=== PATIENT | female | born 1945 | race African-American/Black ===

== ENCOUNTER → 2016-10-23 | Outpatient (CLI) | payer BC ==
[~2016-10-23] MED LIST: B-COTAB18 PO; MCRK/10 PO; MECL1TAB42 PO; METO25TA56 PO; MULT-506 PO; OMEG10007 PO; VALS160T60 PO
--- NOTE | 2016-10-23 13:53 | DIAGNOSTIC IMAGING REPORT ---
LEFT HAND MIN 3 VIEWS ROUTINE CLINICAL HISTORY: HAND PAIN pain COMPARISON: None. DISCUSSION: Considerable degenerative change first carpometacarpal joint. Mild degenerative change of the interphalangeal joints throughout. No evidence for fracture or dislocation. Bony mineralization is within normal limits. IMPRESSION: Considerable degenerative change first carpometacarpal joint. Mild degenerative change interphalangeal joints. No acute process. Electronically signed by: Ru Lee M.D. 10/23/2016 1:51 PM Dictated Date/Time: 10/23/2016 1:51 PM
--- NOTE | 2016-10-23 14:08 | DIAGNOSTIC IMAGING REPORT ---
LEFT FOREARM 2 VIEWS ROUTINE CLINICAL HISTORY: Left forearm pain COMPARISON: None. DISCUSSION: No fractures or dislocations are visualized. Osteoarthritic changes are visualized the level the first carpal metacarpal joint. IMPRESSION: No fractures or destructive lesions are visualized. Electronically signed by: Shelton Bryan M.D. 10/23/2016 2:07 PM Dictated Date/Time: 10/23/2016 2:06 PM
--- NOTE | 2016-10-23 14:16 | DIAGNOSTIC IMAGING REPORT ---
RIGHT HAND MIN 3 VIEWS ROUTINE CLINICAL HISTORY: Right hand pain. COMPARISON: None FINDINGS: Alignment of the right hand is anatomic. There is no acute fracture or suspicious lesion. There is marked joint space narrowing with osteophytosis within multiple interphalangeal joints of the right hand, most pronounced within the second and third digit DIP joints. There is moderate arthritis of the right first carpometacarpal joint. No erosions are identified. IMPRESSION: 1. No acute fracture or dislocation of the right hand. 2. 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 Electronically signed by: Jerson Gusman M.D. 10/23/2016 2:15 PM Dictated Date/Time: 10/23/2016 2:14 PM
--- NOTE | 2016-10-23 14:18 | DIAGNOSTIC IMAGING REPORT ---
RIGHT FOREARM 2 VIEWS ROUTINE CLINICAL HISTORY: Right forearm pain. COMPARISON: None FINDINGS: No acute fracture or osseous lesion is identified within the right radius or ulna. There is no right elbow joint effusion. Alignment of the right elbow is anatomic. The right wrist and hand will be reported separately. IMPRESSION: No osseous abnormality within the right radius or ulna. Electronically signed by: Jerson Gusman M.D. 10/23/2016 2:16 PM Dictated Date/Time: 10/23/2016 2:15 PM
[2016-10-23 14:45] LABS: COMPLETE YES; EOS % 1.6 %; HEMATOCRIT 36.3 % (37-47); LYMPH % 37.1 %; LYMPH ABS # 1.42 K/uL (1.2-3.4); MEAN CORPUSCULAR HEMOGLOBIN 29.6 pg (25-34); MEAN CORPUSCULAR HGB CONC 32.5 g/dl (32-36); MEAN PLATELET VOLUME 11.3 fL (7.4-10.4); MONO % 6.5 %; NEUT % 54.8 %; PLATELET COUNT 236 K/uL (130-400); RED BLOOD COUNT 3.99 M/uL (4.2-5.4); WHITE BLOOD COUNT 3.83 K/uL (4.8-10.8)
[2016-10-23 14:49] LABS: ALT/SGPT 19 U/L (12-78); AMYLASE 84 U/L (25-115); BLOOD UREA NITROGEN 13 mg/dl (7-18); BUN/CREATININE RATIO 11.4 (10-20); C-REACTIVE PROTEIN 0.49 mg/dl (0-0.29); CALCIUM 9.6 mg/dl (8.5-10.1); CARBON DIOXIDE 28 mmol/L (21-32); CHLORIDE 106 mmol/L (98-107); GLUCOSE 88 mg/dl (70-99); POTASSIUM 3.6 mmol/L (3.5-5.1); SODIUM 142 mmol/L (136-145)
[2016-10-23 14:59] LABS: ALKALINE PHOSPHATASE 80 U/L (45-117); AST/SGOT 14 U/L (15-37); THYROID STIMULATING HORMONE 0.695 uIu/ml (0.300-4.500)
--- NOTE | 2016-10-31 12:17 | CODING QUERY MEDICAL NECESSITY ---
SUPPORTING DIAGNOSIS NEEDED A supporting diagnosis is required for the test/procedure performed on this patient in order for us to be reimbursed by the patient's insurance. Please provide a supporting diagnosis for the following test/procedure listed below next to the test name along with your signature. *If there is no additional diagnosis for this patient that would support the following test/procedure please document that below next to the test/procedure. Test(s)/Procedure(s) that require a supporting diagnosis: * VITAMIN B-12 LEVEL DIAGNOSIS: * DOS: 10/23/16 Provider Signature: Date: Thank you Radha Cortez Health Information Management Once completed, please kindly fax back to [phone] For questions please call [phone]
== END | disposition home or self-care (01) ==
LOC: C.LAB1850 12:57
PROVIDERS: ATTEND Internal Medicine
DX: Z11.59 Encounter for screening for other viral diseases (principal); D72.819 Decreased white blood cell count, unspecified; R10.13 Epigastric pain; K82.8 Other specified diseases of gallbladder; M54.6 Pain in thoracic spine; M79.642 Pain in left hand; M19.041 Primary osteoarthritis, right hand

== ENCOUNTER → 2016-12-11 | Outpatient (CLI) | payer BC ==
--- NOTE | 2016-12-11 16:18 | MAMMOGRAPHY REPORT ---
BILATERAL DIGITAL SCREENING MAMMOGRAM WITH CAD: 12/11/2016 CLINICAL HISTORY: Routine screening. Patient has no complaints. TECHNIQUE: Bilateral CC and MLO views were obtained. Current study was also evaluated with a Comput er Aided Detection (CAD) system. COMPARISON: Comparison is made to exams dated: 12/01/2015 mammogram, 11/10/2014 mammogram, 09/30/2013 ul trasound, 09/30/2013 mammogram, 01/07/2013 mammogram, and 12/25/2011 mammogram - [facility] enter. BREAST COMPOSITION: The tissue of both breasts is heterogeneously dense, which may obscure small ma sses. FINDINGS: There are scattered benign coarse and rim calcifications in the breasts. Stable asymmetri es in each lateral breast, and the superior left breast on the MLO view. No new suspicious mass, ar chitectural distortion or cluster of microcalcifications is seen. IMPRESSION: ACR BI-RADS CATEGORY 1: NEGATIVE There is no mammographic evidence of malignancy. A 1 year screening mammogram is recommended. The p atient will receive written notification of the results. Approximately 10% of breast cancers are not detected with mammography. A negative mammographic repor t should not delay biopsy if a clinically suggestive mass is present. Najma Moreno M.D. ay/:12/11/2016 16:02:56 Director Of Testing: Fabiola Swartz, [facility] letter sent: Normal 1/2 BI-RADS Code: ACR BI-RADS Category 1: Negative
== END | disposition home or self-care (01) ==
LOC: C.MAMM 09:52
PROVIDERS: ATTEND Internal Medicine
DX: Z12.31 Encounter for screening mammogram for malignant neoplasm of breast (principal)

== ENCOUNTER → 2017-02-15 | Outpatient (CLI) | payer BC ==
[2017-02-15 12:16] LABS: BASO % 0.2 %; BASO ABS # 0.01 K/uL (0-0.2); COMPLETE YES; EOS % 1.5 %; HEMATOCRIT 34.2 % (37-47); LYMPH % 31.4 %; LYMPH ABS # 1.43 K/uL (1.2-3.4); MEAN CORPUSCULAR HEMOGLOBIN 30.5 pg (25-34); MEAN CORPUSCULAR HGB CONC 33.9 g/dl (32-36); MEAN PLATELET VOLUME 10.1 fL (7.4-10.4); MONO % 6.8 %; NEUT % 60.1 %; PLATELET COUNT 232 K/uL (130-400); WHITE BLOOD COUNT 4.56 K/uL (4.8-10.8)
[2017-02-15 12:54] LABS: AST/SGOT 13 U/L (15-37); BLOOD UREA NITROGEN 13 mg/dl (7-18); BUN/CREATININE RATIO 16.2 (10-20); CALCIUM 9.7 mg/dl (8.5-10.1); CARBON DIOXIDE 29 mmol/L (21-32); CHLORIDE 110 mmol/L (98-107); CREATININE 0.81 mg/dl (0.60-1.20); GLUCOSE 83 mg/dl (70-99); POTASSIUM 3.6 mmol/L (3.5-5.1); SODIUM 144 mmol/L (136-145)
[2017-02-15 13:07] LABS: ALKALINE PHOSPHATASE 91 U/L (45-117); ALT/SGPT 21 U/L (12-78); CHOLESTEROL 154 mg/dl (0-200); CHOLESTEROL/HDL RATIO 3.3; HDL CHOLESTEROL 46 mg/dl; LDL CHOLESTEROL CALCULATED 97 mg/dl; TRIGLYCERIDES 53 mg/dl (0-150); VERY LOW DENSITY LIPOPROT CALC 11 mg/dl
[2017-02-15 15:09] LABS: LYME DISEASE AB IGG NEG (NEG)
[2017-02-15 15:13] LABS: LYME DISEASE AB IGM NEG (NEG)
== END | disposition home or self-care (01) ==
LOC: C.LAB1850 10:50
PROVIDERS: ATTEND Physician Assistant
DX: R10.13 Epigastric pain (principal); I10 Essential (primary) hypertension; R51 Headache

== ENCOUNTER → 2017-02-20 | Outpatient (CLI) | payer BC ==
[~2017-02-20] MED LIST changes: +GADAVIST IV PRN
--- NOTE | 2017-02-20 09:22 | DIAGNOSTIC IMAGING REPORT ---
BRAIN COMBO HISTORY: 71 years-old Female R51 Headache. Progressive headaches and vision changes, dizziness, COMPARISON: Brain MRI 10/24/2015 TECHNIQUE: Multiplanar multisequence MRI of the brain was obtained both with and without the use of 7.5 mL Gadavist. FINDINGS: Large [id number] localizer images demonstrate no gross abnormality of the head or neck. There is no restricted diffusion to suggest acute ischemia. The midline structures including the corpus callosum, brainstem, optic chiasm, pituitary gland and infundibulum and pineal gland appear unremarkable on the sagittal T1 sequence. There is no cerebellar tonsillar herniation. Mild uncovertebral spurring seen within the imaged upper cervical spine. Likely degenerative pannus is seen posterior to the odontoid process measuring up to 6 mm in AP dimension with significant central canal stenosis. There is no acute intracranial hemorrhage, midline shift, hydrocephalus, intracranial mass or abnormal extra axial collections. There is mild cerebral and cerebellar atrophy which appears unchanged. Patchy areas of T2 prolongation are again seen within the periventricular and subcortical white matter of the structures bilaterally which appears unchanged from comparison. There is no abnormal intra-axial or extra-axial enhancement. Flow voids at the level the skull base are patent. Orbits appear symmetric. Mastoid air cells and middle ear cavities are clear. There is only minimal ethmoid and left sphenoid sinus disease. Calvarium and soft tissues are unremarkable. IMPRESSION: 1. No acute intracranial abnormality. No acute ischemia or abnormal enhancement. 2. Mild atrophy with chronic microvascular ischemic changes, stable findings from comparison study dated 10/24/2015. 3. Mild sphenoid and ethmoid sinus disease. The above report was generated using voice recognition software. It may contain grammatical, syntax or spelling errors. Electronically signed by: Ronny Reich M.D. 02/20/2017 9:20 AM Dictated Date/Time: 02/20/2017 9:06 AM
== END | disposition home or self-care (01) ==
LOC: C.MRIBC 08:19
PROVIDERS: ATTEND Physician Assistant
DX: R51 Headache (principal)

== ENCOUNTER → 2017-08-09 | Outpatient (CLI) | payer BC ==
[~2017-08-09] MED LIST changes: -GADAVIST IV PRN
[2017-08-09 15:43] LABS: BASO % 0.2 %; BASO ABS # 0.01 K/uL (0-0.2); EOS % 2.5 %; EOS ABS # 0.11 K/uL (0-0.5); HEMATOCRIT 31.1 % (37-47); HEMOGLOBIN 9.7 g/dL (12.0-16.0); IG# 0.01 K/uL (0.00-0.02); LYMPH ABS # 1.52 K/uL (1.2-3.4); MEAN CELL VOLUME 85.7 fL (80-100); MEAN CORPUSCULAR HEMOGLOBIN 26.7 pg (25-34); MEAN CORPUSCULAR HGB CONC 31.2 g/dl (32-36); MEAN PLATELET VOLUME 9.6 fL (7.4-10.4); MONO % 8.9 %; NEUT % 54.2 %; NEUT ABS # 2.42 K/uL (1.4-6.5); PLATELET COUNT 333 K/uL (130-400); RED CELL DISTRIBUTION WIDTH CV 16.3 % (11.5-14.5); RED CELL DISTRIBUTION WIDTH SD 51.3 fL (36.4-46.3); WHITE BLOOD COUNT 4.47 K/uL (4.8-10.8)
[2017-08-09 16:05] LABS: ALT/SGPT 22 U/L (12-78); AST/SGOT 14 U/L (15-37); BLOOD UREA NITROGEN 10 mg/dl (7-18); CALCIUM 9.8 mg/dl (8.5-10.1); CARBON DIOXIDE 28 mmol/L (21-32); CREATININE 0.84 mg/dl (0.60-1.20); GLUCOSE 84 mg/dl (70-99); POTASSIUM 3.8 mmol/L (3.5-5.1); SODIUM 138 mmol/L (136-145)
[2017-08-09 16:15] LABS: CHOLESTEROL 160 mg/dl (0-200); LDL CHOLESTEROL CALCULATED 89 mg/dl
== END | disposition home or self-care (01) ==
LOC: C.LAB1850 13:16
PROVIDERS: ATTEND Internal Medicine
DX: D72.819 Decreased white blood cell count, unspecified (principal); I10 Essential (primary) hypertension; R11.0 Nausea; R10.13 Epigastric pain

== ENCOUNTER → 2017-08-13 | Outpatient (CLI) | payer BC ==
[2017-08-13 10:44] LABS: BASO % 0.2 %; BASO ABS # 0.01 K/uL (0-0.2); EOS % 2.4 %; EOS ABS # 0.12 K/uL (0-0.5); HEMOGLOBIN 9.7 g/dL (12.0-16.0); IG# 0.01 K/uL (0.00-0.02); LYMPH % 28.1 %; LYMPH ABS # 1.43 K/uL (1.2-3.4); MEAN CELL VOLUME 85.4 fL (80-100); MEAN CORPUSCULAR HEMOGLOBIN 26.7 pg (25-34); MEAN CORPUSCULAR HGB CONC 31.3 g/dl (32-36); MEAN PLATELET VOLUME 9.5 fL (7.4-10.4); MONO % 6.5 %; MONO ABS # 0.33 K/uL (0.11-0.59); NEUT % 62.6 %; NEUT ABS # 3.19 K/uL (1.4-6.5); PLATELET COUNT 322 K/uL (130-400); RED CELL DISTRIBUTION WIDTH CV 15.9 % (11.5-14.5); RED CELL DISTRIBUTION WIDTH SD 49.9 fL (36.4-46.3); WHITE BLOOD COUNT 5.09 K/uL (4.8-10.8)
== END | disposition home or self-care (01) ==
LOC: C.LAB1850 10:21
PROVIDERS: ATTEND Internal Medicine
DX: D64.9 Anemia, unspecified (principal); E87.6 Hypokalemia; E53.8 Deficiency of other specified B group vitamins

== ENCOUNTER → 2017-10-08 | Outpatient (CLI) | payer BC ==
[2017-10-08 13:14] LABS: EOS % 1.4 %; EOS ABS # 0.06 K/uL (0-0.5); HEMATOCRIT 31.4 % (37-47); HEMOGLOBIN 9.7 g/dL (12.0-16.0); IG# 0.01 K/uL (0.00-0.02); LYMPH % 26.5 %; LYMPH ABS # 1.16 K/uL (1.2-3.4); MEAN CELL VOLUME 85.8 fL (80-100); MEAN CORPUSCULAR HEMOGLOBIN 26.5 pg (25-34); MEAN CORPUSCULAR HGB CONC 30.9 g/dl (32-36); MEAN PLATELET VOLUME 9.7 fL (7.4-10.4); MONO % 8.7 %; MONO ABS # 0.38 K/uL (0.11-0.59); NEUT % 63.2 %; NEUT ABS # 2.77 K/uL (1.4-6.5); PLATELET COUNT 298 K/uL (130-400); RED CELL DISTRIBUTION WIDTH CV 15.2 % (11.5-14.5); WHITE BLOOD COUNT 4.38 K/uL (4.8-10.8)
[2017-10-08 13:39] LABS: ALBUMIN 3.2 gm/dl (3.4-5.0); ALT/SGPT 17 U/L (12-78); BLOOD UREA NITROGEN 13 mg/dl (7-18); CALCIUM 9.5 mg/dl (8.5-10.1); CARBON DIOXIDE 27 mmol/L (21-32); CREATININE 1.07 mg/dl (0.60-1.20); GLUCOSE 72 mg/dl (70-99); LIPASE 110 U/L (73-393); POTASSIUM 3.6 mmol/L (3.5-5.1); SODIUM 137 mmol/L (136-145)
[2017-10-08 13:44] LABS: ALKALINE PHOSPHATASE 88 U/L (45-117); AST/SGOT 10 U/L (15-37); TOTAL PROTEIN 7.8 gm/dl (6.4-8.2)
== END | disposition home or self-care (01) ==
LOC: C.LAB1850 11:41
PROVIDERS: ATTEND Internal Medicine
DX: D64.9 Anemia, unspecified (principal); R10.13 Epigastric pain

== ENCOUNTER → 2017-10-18 | Outpatient (CLI) | payer BC ==
[~2017-10-18] MED LIST changes: +IRON PO; +OMEP20CA9 PO
--- NOTE | 2017-10-18 15:20 | DIAGNOSTIC IMAGING REPORT ---
ABD/PELVIS ORAL CONT ONLY CT DOSE: 382.45 mGy.cm HISTORY: Weight loss. Pain. R10.13 Abdominal pain, epigastricweight loss nausea and anemia a TECHNIQUE: Multiaxial CT images of the abdomen and pelvis were performed following the use of oral contrast. A dose lowering technique was utilized adhering to the principles of ALARA. COMPARISON STUDY: 02/15/2015 FINDINGS: Lung bases are clear. Liver spleen and pancreas are unremarkable overall morphology. Kidneys negative for calcification or hydronephrosis. Bowel pattern is nonobstructive. Scattered colonic diverticuli with no evidence for diverticulitis. Bladder is midline. No evidence for bowel obstructive change or pneumatosis. Degenerative change of the lumbar spine is stable compared to the prior exam. IMPRESSION: 1. Scattered colonic diverticuli with no evidence for diverticulitis. 2. Stable degenerative change lumbar spine. 3. The abdomen and pelvis exam is otherwise negative. The above report was generated using voice recognition software. It may contain grammatical, syntax or spelling errors. Electronically signed by: Ru Lee M.D. 10/18/2017 3:18 PM Dictated Date/Time: 10/18/2017 3:13 PM
== END | disposition home or self-care (01) ==
LOC: C.CTS 13:07
PROVIDERS: ATTEND Internal Medicine
DX: R10.13 Epigastric pain (principal); R63.4 Abnormal weight loss; R11.0 Nausea; D64.9 Anemia, unspecified

== ENCOUNTER → 2017-10-24 | Day surgery (SDC) | payer BC ==
[2017-10-22 11:41] VITALS: BMI 25.0
[~2017-10-24] VITALS: Ht 170.2 cm; Wt 75.0 kg
[~2017-10-24] MED LIST changes: -B-COTAB18 PO; +LIDOCAINE HCL 2% 2 ML VIAL (20MG/ML) ONE; -MECL1TAB42 PO; -MULT-506 PO; -OMEG10007 PO; +PROPOFOL IV EMULSION 10 MG/ML 20 ML VIAL IV ONE; +SODIUM CHLORIDE 0.9% 500ML 500 ML IV ONE
[2017-10-24 09:42] VITALS: Ht 170.2 cm; Wt 75.0 kg
--- NOTE | 2017-10-24 10:10 | Endo History and Physical ---
History & Physical Date of Service: Oct 24, 2017. Chief Complaint: IRON DEFICIENCY ANEMIA Referring Physician: DR SWIFT History of Present Illness CESILIA, abdominal pain and weight loss Past Medical History Reflux, Hypertension Past Surgical History Hx Cardiac Surgery: No Hx Internal Defibrillator: No Hx Pacemaker: No Hx Abdominal Surgery: Yes (PARTIAL HYSTERECTOMY) Hx of Implantable Prosthesis: No Hx Post-Op Nausea and Vomiting: No Hx Cancer Surgery: No Hx Thoracic Surgery: No Hx Orthopedic: No Hx Urinary Tract Surgery: No Family History None Social History Smoking Status: Never Smoker Hx Substance Use: No Hx Alcohol Use: No Allergies Coded Allergies: Erythromycin (Verified Allergy, Unknown, DIZZY, 10/22/17) Propoxyphene (Verified Allergy, Unknown, DIZZINESS, 10/22/17) Sulfa Drugs (Verified Allergy, Unknown, LIPS SWELLING, 04/16/16) Current Medications Reported Home Medications Medications Dose Route/Sig Max Daily Dose Days Date Category Prilosec (Omeprazole) 20 Mg Cap 20 Mg PO QAM 10/22/17 Reported [Iron] 1 Tab PO BID 10/22/17 Reported K-Tabs (Potassium Chloride) 10 Meq Tabcr 3 Tab PO BID 02/08/16 Reported Diovan Hct 160MG/25MG (HCTZ/Valsartan) 1 Tab Tab 1 Tab PO QAM 02/08/16 Reported Lopressor (Metoprolol Tartrate) 25 Mg Tab 25 Mg PO BID 02/08/16 Reported Vital Signs Weight (Kilograms): 75.00 Height (Feet): 5 Height (Inches): 7 Date Time Temp Pulse Resp B/P (MAP) Pulse Ox O2 Delivery O2 Flow Rate FiO2 10/24/17 09:44 36.5 80 18 140/73 (95) 96 Room Air Physical Exam General Appearance: no apparent distress Respiratory/Chest: Auscultation: breath sounds normal Cardiovascular: Heart Auscultation: RRR Abdomen: Inspection & Palpation: soft Liver: non-tender Assessment and Plan Stable for EGD
--- NOTE | 2017-10-24 10:31 | Discharge Instructions ---
Endoscopy Patient Instructions Date / Procedure(s) Performed Oct 24, 2017. EGD Allergy Information Coded Allergies: Erythromycin (Verified Allergy, Unknown, DIZZY, 10/22/17) Propoxyphene (Verified Allergy, Unknown, DIZZINESS, 10/22/17) Sulfa Drugs (Verified Allergy, Unknown, LIPS SWELLING, 04/16/16) Discharge Date / Findings Oct 24, 2017. Normal esophagus. Gastritis Normal Duodenum Provider Instructions Activity Restrictions - No exercising or heavy lifting for 24 hours. - Do not drink alcohol the day of the procedure. - Do not drive a car or operate machinery until the day after the procedure. - Do not make any important decisions or sign important papers in 24 hours after the procedure. Following Day: - Return to full activity which may include returning to work/school. Diet Start your diet with liquids and light foods (jello, soup, juice, toast). Then eat your usual diet if not nauseated. Treatment For Common After Affects For mild abdominal pain, bloating, or excessive gas: - Rest - Eat lightly - Lie on right side Follow-Up Information Follow-up with DR SWIFT as scheduled Anesthesia Information What You Should Know You have had a procedure that required some medicine to reduce anxiety and discomfort. This treatment is called moderate sedation. After receiving the treatment, you may be sleepy, but you will be able to breathe on your own. The effects of the treatment may last for several hours. Follow these instructions along with Activity/Diet recommendations noted above: * Do NOT do anything where dizziness or clumsiness would be dangerous. * Rest quietly at home today, then you can be up and about tomorrow. * Have a responsible person stay with you the rest of today. * You may have had an I.V. today. If so, you may take the dressing off later today. Recommendations Call your doctor if: * Trouble breathing * Continuous vomiting for more than 24 hours * Temperature above 101 degrees * Severe abdominal pain or bloating * Pain not relieved by pain medicine ordered * There is increased drainage or redness from any incision * A large amount of rectal bleeding greater than 2-3 tablespoons. (If you had a polyp/s removed or have hemorrhoids, a small amount of blood - from the rectum is to be expected.) * You have any unanswered questions or concerns. IN THE EVENT OF A SERIOUS EMERGENCY, GO TO THE NEAREST EMERGENCY ROOM Your discharge instructions were prepared by provider Vale Velasquez. Patient Instructions Signature Page Rhina Escalante Patient (or Guardian) Signature/Date: I have read and understand the instructions given to me by my caregivers. Caregiver/RN/Doctor Signature/Date: The above-named patient and/or guardian has received patient instructions on this date. + Original Patient Signature Page (only) stays with chart. Please make copy for patient.
--- NOTE | 2017-10-24 10:39 | GI REPORT ---
Procedure Date: 10/24/2017 10:17 AM Procedure: Upper GI endoscopy Indications: Epigastric abdominal pain, Iron deficiency anemia, Weight loss Medicines: Monitored Anesthesia Care Complications: No immediate complications. Estimated Blood Loss: Estimated blood loss: none. Procedure: Pre-Anesthesia Assessment: - Prior to the procedure, a History and Physical was performed, and patient medications and allergies were reviewed. The patient is competent. The risks and benefits of the procedure and the sedation options and risks were discussed with the patient. All questions were answered and informed consent was obtained. Patient identification and proposed procedure were verified by the physician and the nurse in the procedure room. Mental Status Examination: alert and oriented. Airway Examination: normal oropharyngeal airway and neck mobility. Respiratory Examination: clear to auscultation. CV Examination: normal. ASA Grade Assessment: II - A patient with mild systemic disease. After reviewing the risks and benefits, the patient was deemed in satisfactory condition to undergo the procedure. The anesthesia plan was to use monitored anesthesia care (MAC). Immediately prior to administration of medications, the patient was re-assessed for adequacy to receive sedatives. The heart rate, respiratory rate, oxygen saturations, blood pressure, adequacy of pulmonary ventilation, and response to care were monitored throughout the procedure. The physical status of the patient was re-assessed after the procedure. After obtaining informed consent, the endoscope was passed under direct vision. Throughout the procedure, the patient's blood pressure, pulse, and oxygen saturations were monitored continuously. The scope was introduced through the mouth, and advanced to the second part of duodenum. The upper GI endoscopy was accomplished without difficulty. The patient tolerated the procedure well. Findings: The examined esophagus was normal. Mildly erythematous mucosa was found in the gastric body. Biopsies were taken with a cold forceps for Helicobacter pylori testing. Verification of patient identification for the specimen was done by the physician and nurse using the patient's name and date. The duodenal bulb and second portion of the duodenum were normal. Biopsies were taken with a cold forceps for histology. Impression: - Normal esophagus. - Erythematous mucosa in the gastric body. Biopsied. - Normal duodenal bulb and second portion of the duodenum. Biopsied. Recommendation: - Discharge patient to home. - Await pathology results. - Perform a colonoscopy at appointment to be scheduled and if normal then consider VCE. - Return to referring physician. Vale Velasquez MD 10/24/2017 10:38:23 AM This report has been signed electronically. Note Initiated On: 10/24/2017 10:17 AM I attest to the content of the Intraoperative Record and orders documented therein, exceptions below
[2017-10-24 11:12] VITALS: BP 154/74; PULSE 75; O2SAT 100
--- NOTE | 2017-10-24 11:22 | Anesthesiology Progress Note ---
Anesthesia Post Op Note Date & Time Oct 24, 2017 at 11:21 Vital Signs Pain Intensity: 0 Vital Signs Past 12 Hours Date Time Temp Pulse Resp B/P (MAP) Pulse Ox O2 Delivery O2 Flow Rate FiO2 10/24/17 11:12 75 20 154/74 (100) 100 Room Air 10/24/17 10:58 80 18 135/69 (91) 98 Room Air 10/24/17 10:43 89 16 105/60 (75) 95 Room Air 10/24/17 09:44 36.5 80 18 140/73 (95) 96 Room Air Notes Mental Status: alert / awake / arousable, participated in evaluation Pt Amnestic to Procedure: Yes Nausea / Vomiting: adequately controlled Pain: adequately controlled Airway Patency, RR, SpO2: stable & adequate BP & HR: stable & adequate Hydration State: stable & adequate Anesthetic Complications: no major complications apparent
== END | disposition home or self-care (01) ==
LOC: C.GI 09:24
PROVIDERS: ATTEND Student in an Organized Health Care Education/Training Program
DX: K29.50 Unspecified chronic gastritis without bleeding (principal); D50.9 Iron deficiency anemia, unspecified; K31.89 Other diseases of stomach and duodenum; R63.4 Abnormal weight loss; Z88.1 Allergy status to other antibiotic agents; Z88.2 Allergy status to sulfonamides; Z90.710 Acquired absence of both cervix and uterus; Z90.89 Acquired absence of other organs; M19.90 Unspecified osteoarthritis, unspecified site

== ENCOUNTER 2019-11-11 19:44 | Observation (INO) ==
[2019-11-11] MEDS ORDERED: NITROGLYCERIN 2% OINTMENT 30GM TUBE EXT STA (20:07)
--- NOTE | 2019-11-11 20:12 | Emergency Department Note ---
History of Present Illness General Chief complaint: Chest Pain Stated complaint: chest pain Time Seen by Provider: 11/11/19 19:55 Source: patient History of Present Illness Provider complaint: Chest pain Onset (ago): hour(s) (7:30 AM today) Location: chest Radiation: extremity (Both arms) and other (Neck) Pain Consistency: + constant Maximum Pain Intensity: 8 Quality: + sharp Relieved By: + none Exacerbated By: + none Associated symptoms: + other (No leg swelling or pain); no cough, no fe arsen/chills, no malaise and no nausea/vomiting This is a 74-year-old female presents with chest pain starting at 7:30 AM this morning. She thought it was reflux disease. She describes it as sharp and stabbing across the entire chest with radiation into both of her arms as well as her neck. No worsening or alleviating factors. It is not related to exertion. She denies any associated fever, cough or cold symptoms, known exposure to [place] VID-19, leg swelling or pain or myalgias. She does state about a month ago she traveled from [place] and [place]. She stated that they made frequent stops. She has been taking antacids all day without relief. She called her doctor who advised her to come here for further evaluation. She also notes that she has been having epigastric abdominal pain for the past 3 months. She states that she will eat something and then she will have to eat something again in 2 hours because she develops pain. Home Medications Home Medications Medication Instructions Recorded Confirmed Type Lactobacillus acidoph-L.bulgar 2 - 3 tab PO TIDM 11/11/18 11/11/19 History [Lactinex] albuterol sulfate 3 inha INH Q6H PRN #8.5 gm 11/11/18 11/11/19 Rx loratadine [Claritin] 10 mg PO DAILY PRN 11/11/18 11/11/19 History meclizine 25 mg PO TID PRN 11/11/18 11/11/19 History multivitamin 1 tab PO DAILY 11/11/18 11/11/19 History triamcinolone acetonide 55 mcg 1 spray INTRANASAL BID PRN 03/03/19 11/11/19 History nasal spray aerosol metoprolol tartrate 25 mg tablet 25 mg PO BID #180 tab 07/01/19 11/11/19 Rx gabapentin 100 mg capsule 200 mg PO HS 30 Days #90 cap 09/25/19 11/11/19 Rx telmisartan 80 1 tab PO DAILY #90 tab 10/21/19 11/11/19 Rx mg-hydrochlorothiazide 25 mg tablet Vitamin B12 Liquid 1 dose PO DAILY 11/11/19 11/11/19 History famotidine 40 mg PO HS 11/11/19 11/11/19 History omeprazole 20 mg PO DAILY PRN 11/11/19 11/11/19 History potassium chloride 20 meq PO TID 11/11/19 11/11/19 History Allergies Allergy/AdvReac Type Severity Reaction Status Date / Time acetaminophen Allergy Unknown Unknown Verified 11/11/19 20:35 [From Darvocet-N] amlodipine [From Norvasc] Allergy Unknown Unknown Verified 11/11/19 20:35 erythromycin base Allergy Unknown DIZZY Verified 11/11/19 20:35 lansoprazole [From Prevacid] Allergy Unknown Unknown Verified 11/11/19 20:35 pantoprazole [From Protonix] Allergy Unknown Unknown Verified 11/11/19 20:35 propoxyphene Allergy Unknown DIZZINESS Verified 11/11/19 20:35 Sulfa (Sulfonamide Allergy Unknown LIPS Verified 11/11/19 20:35 Antibiotics) SWELLING Darvocet-N 50 TABS Allergy Unknown Unknown Uncoded 11/11/19 20:35 Darvon CAPS Allergy Unknown Unknown Uncoded 11/11/19 20:35 Past Med/Surg History Medical History Anemia Headache Hearing loss of left ear due to cerumen impaction History of depression Surgical History S/P hysterectomy S/P laparoscopy Family History Mother Alzheimer disease Diabetes Hypertension Family/Other Diabetes Sister Diabetes Hypertension Brother Hypertension Father Cancer Lung cancer Other No family history of bleeding disorder Social History Preferred Language: Hungarian marital status: Current Living Situation: Spouse current occupational status: retired 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 and A total of 10 systems reviewed and were otherwise negative Physical Exam Vital Signs Vital Signs - 24 hr 11/11/19 19:46 11/11/19 20:07 11/11/19 20:17 Temperature 37.0 C Temperature Source Oral Pulse Rate 86 75 Pulse Rate from SpO2 Sensor 75 Respiratory Rate 18 25 H Blood Pressure 180/79 H 164/67 H Blood Pressure Mean 112 105 Pulse Oximetry 99 99 Oxygen Delivery Method Room Air Room Air Room Air Sepsis Recent Fever Within 48 Hours No Sepsis New/Unexplained Change in Mental Status No Sepsis Action Taken by Nursing No Action Required 11/11/19 20:30 11/11/19 21:01 11/11/19 21:30 Temperature Temperature Source Pulse Rate 78 78 75 Pulse Rate from SpO2 Sensor 78 76 75 Respiratory Rate 23 20 14 Blood Pressure 152/75 H 174/99 H 182/97 H Blood Pressure Mean 112 109 148 Pulse Oximetry 97 97 98 Oxygen Delivery Method Room Air Room Air Room Air Sepsis Recent Fever Within 48 Hours Sepsis New/Unexplained Change in Mental Status Sepsis Action Taken by Nursing Constitutional: Vital signs reviewed. Eyes: Pupils are equal round reactive to light. Conjunctiva are noninjected. ENT: Pharynx is clear without erythema or exudate. Mucous membranes are moist. Neck supple without meningeal signs. Respiratory: Clear to auscultation bilaterally. Breath sounds are equal bilaterally. Cardiovascular: Regular rate and rhythm. No rubs or gallops. GI: Soft, nondistended and nontender. Bowel sounds are present. Musculoskeletal: No peripheral edema. No lower extremity tenderness. Integumentary: No cyanosis. or jaundice. Neurological: The patient is awake and alert. No focal deficits. Psychiatric: Normal affect. Not anxious appearing. Course Administered Medications Discontinued Medications Nitroglycerin (Nitro-Bid 2%) 0.5 inch EXT NOW STA Stop: 11/11/19 20:08 Last Admin: 11/11/19 20:15 Dose: 0.5 inch Documented by: [id number] Medical Decision Making Differential Diagnosis KS, unstable angina, pleurisy, GERD, cholelithiasis, pancreatitis Medical Records Attestation: I reviewed the patient's medical records. I did perform a limited focused review of portions of the patient's old chart on the electronic medical record. The patient has had no recent pertinent visits to this hospital. Home Medications Current Medication List: was personally reviewed by or Laboratory Data Attestation: I reviewed the patient's lab results. Result diagrams: 11/11/19 20:14 11/11/19 20:14 Lab Results 11/11/19 11/11/19 11/11/19 Range/Units 20:14 20:14 20:14 WBC 5.08 (4.8-10.8) K/uL RBC 4.00 L (4.2-5.4) M/uL Hgb 12.5 (12.0-16.0) g/dL Hct 37.4 (37-47) % MCV 93.5 (80-100) fL MCH 31.3 (25-34) pg MCHC 33.4 (32-36) g/dL RDW Std Deviation 42.1 (36.4-46.3) fL RDW Coeff of Yair 12.4 (11.5-14.5) % Plt Count 218 (130-400) K/uL MPV 10.4 (7.4-10.4) fL Immature Gran % (Auto) 0.2 % Neut % (Auto) 57.0 % Lymph % (Auto) 31.5 % Sharkey % (Auto) 8.5 % Eos % (Auto) 2.6 % Baso % (Auto) 0.2 % Immature Gran # (Auto) 0.01 (0.00-0.02) K/uL Neut # (Auto) 2.90 (1.4-6.5) K/uL Lymph # (Auto) 1.60 (1.2-3.4) K/uL Sharkey # (Auto) 0.43 (0.11-0.59) K/uL Eos # (Auto) 0.13 (0-0.5) K/uL Baso # (Auto) 0.01 (0-0.2) K/uL PT 11.1 (9.0-12.0) Seconds INR 1.1 (0.9-1.1) APTT 24.5 (21.0-31.0) Seconds PTT Ratio 0.9 Sodium 139 (136-145) mmol/L Potassium 3.3 L (3.5-5.1) mmol/L Chloride 106 (98-107) mmol/L Carbon Dioxide 30 (21-32) mmol/L Anion Gap 3.0 (3-11) BUN 13 (7-18) mg/dl Creatinine 1.06 (0.6-1.2) mg/dl Est Cr Clr Drug Dosing Not Reportable Est GFR ( Amer) 59.9 Est GFR (Non-Af Amer) 51.7 BUN/Creatinine Ratio 12.3 (10-20) Glucose 97 (70-99) mg/dl Calcium 9.4 (8.5-10.1) mg/dl Total Bilirubin 0.2 (0.2-1) mg/dl AST 11 L (15-37) U/L ALT 18 (12-78) U/L Alkaline Phosphatase 87 (45-117) U/L Troponin I < 0.015 (0-0.045) ng/ml Total Protein 7.8 (6.4-8.2) gm/dl Albumin 3.9 (3.4-5.0) gm/dl Globulin 3.9 (2.5-4.0) gm/dl Albumin/Globulin Ratio 1.0 (0.9-2) Lipase 110 (73-393) U/L Imaging Data Radiologist's Impression: XR chest 1V portable CLINICAL HISTORY: Chest Pain dyspnea COMPARISON STUDY: 11/11/2018 FINDINGS: The bones soft tissues and hemidiaphragms are normal. The cardiomediastinal silhouette is normal. The lungs are clear. The pulmonary vasculature is normal. IMPRESSION: Negative chest. ACT 112: Negative or not required by law. The above report was generated using voice recognition software. It may contain grammatical, syntax or spelling errors. Electronically signed by: Ru Lee M.D. 11/11/2019 8:27 PM ECG Data Attestation: I personally reviewed and interpreted this ECG as follows: Indication: + chest pain Rate (beats per minute): 81 Rhythm: + normal sinus ECG Intervals/blocks: + Normal QRS ECG ST segments: + ST elevation (Very minimal less than [address] elevation in V1 and V2. ); no ST depression ECG Findings: no PVCs Change: no significant change (October 2018) Additional Comments: Repeat 12-lead EKG at 2046 per my interpretation demonstrates normal sinus rhythm at a rate of 76 bpm. There is no ST elevation or depression. No PVCs. No widening of the QRS. Blood Pressure Blood Pressure Findings: Elevated blood pressure Blood Pressure Disposition: Referred to patients primary care provider MDM Narrative I did evaluate the patient as noted above. The patient is presenting with chest pain all day with radiation to her arms and neck. She is also very hypertensive here. IV access was established. I did treat her with nitroglycerin paste. The patient was placed on a continuous boat wrapper. Cardiac monitoring: Indication: Chest pain Rate and rhythm: Normal sinus rhythm with a rate of 75. No dysrhythmia. I did order and personally review the patient's 12-lead EKG as described above. She has some very minimal questionable ST elevations in the septal leads. I did repeat another twelve-lead EKG which showed no ST elevations or signs of acute ischemia. I did order and personally reviewed the images of the patient's chest x-ray as described above. Chest x-ray is unremarkable. I did order and review the patient's blood work as noted in the electronic medical record. CBC is unremarkable. Troponin is negative. Potassium is slightly low at 3.3. On reassessment the patient states that her chest pain is now completely resolved. I did discuss the test results with her. I did recommend hospitalization for further evaluation and repeat cardiac biomarkers. The case was discussed with the mattress spring encaser and hospitalist. Impression & Plan Chest pain, Acute hypokalemia, Abdominal pain, chronic, epigastric Discharge Plan Visit Data Chief Complaint: Chest Pain Stated Complaint: chest pain ED Provider: Robbie Bustillos Discharge Problem: Chest pain, Acute hypokalemia, Abdominal pain, chronic, epigastric Patient Disposition: Being Evaluated by Hospitalist Condition: Good Discharge Instructions Interventions: ED Discharge Assessment Last Done: 11/11/19 22:43 Discharge Problem: Chest pain Qualifiers: Chest pain type: unspecified Qualified Code(s): R07.9 - Chest pain, unspecified
[2019-11-11 20:21] LABS: Basophils # (auto) 0.01 K/uL (0-0.2); Basophils % (auto) 0.2 %; Eosinophils # (auto) 0.13 K/uL (0-0.5); Eosinophils % (auto) 2.6 %; Hematocrit (blood only) 37.4 % (37-47); Hemoglobin 12.5 g/dL (12.0-16.0); Immature Granulocytes # (auto) 0.01 K/uL (0.00-0.02); Immature Granulocytes % (auto) 0.2 %; Lymphocytes % (auto) 31.5 %; Mean Corpuscular Hemoglobin 31.3 pg (25-34); Mean Corpuscular Hgb Conc 33.4 g/dL (32-36); Mean Corpuscular Volume 93.5 fL (80-100); Mean Platelet Volume 10.4 fL (7.4-10.4); Monocytes # (auto) 0.43 K/uL (0.11-0.59); Monocytes % (auto) 8.5 %; Platelet Count 218 K/uL (130-400); RDW Coefficient of Variation 12.4 % (11.5-14.5); RDW Standard Deviation 42.1 fL (36.4-46.3); White Blood Count 5.08 K/uL (4.8-10.8)
--- NOTE | 2019-11-11 20:28 | XRay Report ---
XR chest 1V portable CLINICAL HISTORY: Chest Pain dyspnea COMPARISON STUDY: 11/11/2018 FINDINGS: The bones soft tissues and hemidiaphragms are normal. The cardiomediastinal silhouette is n ormal. The lungs are clear. The pulmonary vasculature is normal. IMPRESSION: Negative chest. ACT 112: Negative or not required by law. The above report was generated using voice recognition software. It may contain grammatical, syntax or spelling errors. Electronically signed by: Ru Lee M.D. 11/11/2019 8:27 PM
[2019-11-11 20:33] LABS: INR 1.1 (0.9-1.1); Partial Thromboplastin Ratio 0.9; Partial Thromboplastin Time 24.5 Seconds (21.0-31.0); Prothrombin Time 11.1 Seconds (9.0-12.0)
[2019-11-11 20:39] LABS: Alanine Aminotransferase 18 U/L (12-78); Albumin Level 3.9 gm/dl (3.4-5.0); Aspartate Aminotransferase 11 U/L (15-37); BUN Creatinine Ratio 12.3 (10-20); Blood Urea Nitrogen 13 mg/dl (7-18); Calcium 9.4 mg/dl (8.5-10.1); Carbon Dioxide 30 mmol/L (21-32); Chloride 106 mmol/L (98-107); Est GFR (African American) 59.9; Est GFR (Non-African American) 51.7; Glucose 97 mg/dl (70-99); Lipase 110 U/L (73-393); Potassium 3.3 mmol/L (3.5-5.1); Sodium 139 mmol/L (136-145)
[2019-11-11 20:44] LABS: Alkaline Phosphatase 87 U/L (45-117); Bilirubin,Total 0.2 mg/dl (0.2-1); Globulin 3.9 gm/dl (2.5-4.0); Total Protein 7.8 gm/dl (6.4-8.2); Troponin I < 0.015 ng/ml (0-0.045)
--- NOTE | 2019-11-11 22:28 | History & Physical Report ---
Date of Service November 11, 2019 Assessment & Plan (1) Chest pain: Mrs. Escalante is a 74 yo female with a PMHx of HTN and GERD presenting to emergency department with atypical chest pain. Patient admitted for chest pain rule out. - troponin undetectable on admission; serial levels ordered - EKG normal sinus rhythm without ST segment changes - occasional PVCs observed on monitor - TTE ordered, as GI distress may represent anginal equivalent - will hold off on cardiology consult at this time - HEART Score of 3 - suspicion for cardiac origin is low; GI etiology felt to be more likely (2) Acute hypokalemia: - 3.3 on admission - patient is on combination blood pressure pill with 25mg HCTZ, however also takes 20meq of oral KCl replacement three times daily - additional 20meq KCl ordered - will check magnesium level ; replace if indicated (3) GERD (gastroesophageal reflux disease): - currently taking famotidine 20mg - history of gnawing epigastric pain that begins 2-3 hours after eating is s uspicious for peptic ulcer disease - patient would like benefit from PPI, however she has several allergies listed to these agents - consider adding Carafate - consider H.pylori testing given longstanding history of GI discomfort - patient scheduled to see GI 01/13; consider moving this appointment up (4) HTN (hypertension): - BP elevated to 182/97 - continue home metoprolol and telmisartan-HCTZ combo pill (5) Palpitations: - patient with known history of PVCs - occasional PVCs on monitor during this admission - continue metoprolol tartrate 25mg BID Code Status: DNR/DNI Dispo: Med/Surg with tele Diet: Heart Healthy DVT ppx: Lovenox 40mg, SQ, daily History of Present Illness Primary Care Provider: Braulio Kaur MD Mrs. Escalante is a 74 yo woman with a PMHx of hypertension, GERD and PVCs who presented to the ED for chest pain that began > 12 hours prior to evaluation. The sharp, stabbing pain was located in the central chest with radiation to the neck and below her R shoulder blade. Initially, the pain improved after eating breakfast, with a warm shower and a soft tissue massage. It returned later in the day at a higher intensity, ultimately prompting her to come in for evaluation. The pain was not exertional, positional, or pleuritic in nature. She denies associated SOB, nausea or diaphoresis. No trauma to the chest wall. She denies a high stress level. No underlying history of CAD; most recent stress ECHO in 2009 showed normal LV function, no EKG changes with activity, mild mitral regurgitation. Patient believes the pain is related to her longstanding stomach issues. She describes a gnawing sensation in her epigastrium, which occurs 2-3 hrs after eating. She has identified certain foods as being particularly "unkind," which include red sauces and citrus juices. She takes a daily probiotic and famotidine 20mg. She is scheduled to see [facility] SANTOS later this summer. ED course: Patient afebrile, HR 75, BP 182/97, RR 14, satting 98 on room air. CBC normal. Potassium low at 3.3. Troponin x1 undetectable. Lipase normal. EKG normal sinus rhythm without ST segment changes. Allergies Allergy/AdvReac Type Severity Reaction Status Date / Time acetaminophen Allergy Unknown Unknown Verified 11/11/19 20:35 [From Darvocet-N] amlodipine [From Norvasc] Allergy Unknown Unknown Verified 11/11/19 20:35 lansoprazole [From Prevacid] Allergy Unknown Unknown Verified 11/11/19 20:35 pantoprazole [From Protonix] Allergy Unknown Unknown Verified 11/11/19 20:35 Sulfa (Sulfonamide Allergy Unknown LIPS Verified 11/11/19 20:35 Antibiotics) SWELLING erythromycin base AdvReac Unknown DIZZY Verified 11/11/19 23:41 propoxyphene AdvReac Unknown DIZZINESS Verified 11/11/19 23:41 Home Medications Home Medications Medication Instructions Recorded Confirmed Type Lactinex 2 - 3 tab PO TIDM 11/11/18 11/11/19 History albuterol sulfate 3 inha INH Q6H PRN #8.5 gm 11/11/18 11/11/19 Rx loratadine [Claritin] 10 mg PO DAILY PRN 11/11/18 11/11/19 History meclizine 25 mg PO TID PRN 11/11/18 11/11/19 History multivitamin 1 tab PO DAILY 11/11/18 11/11/19 History triamcinolone acetonide 55 mcg 1 spray INTRANASAL BID PRN 03/03/19 11/11/19 History nasal spray aerosol metoprolol tartrate 25 mg tablet 25 mg PO BID #180 tab 07/01/19 11/11/19 Rx gabapentin 100 mg capsule 200 mg PO HS 30 Days #90 cap 09/25/19 11/11/19 Rx telmisartan 80 1 tab PO DAILY #90 tab 10/21/19 11/11/19 Rx mg-hydrochlorothiazide 25 mg tablet Vitamin B12 Liquid 1 dose PO DAILY 11/11/19 11/11/19 History potassium chloride 20 meq PO TID 11/11/19 11/11/19 History pantoprazole 40 mg PO DAILY 28 Days #28 tab 11/12/19 Rx Past Med/Surg History Medical History Anemia Headache Hearing loss of left ear due to cerumen impaction History of depression Surgical History S/P hysterectomy S/P laparoscopy Family History Mother Alzheimer disease Diabetes Hypertension Family/Other Diabetes Sister Diabetes Hypertension Brother Hypertension Father Cancer Lung cancer Other No family history of bleeding disorder Social History Preferred Language: Ivorian Communication Ability: Effective Beater Boss Required: No Beliefs That Will Affect Care: None marital status: Current Living Situation: Spouse current occupational status: retired 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 Feels Safe at Home: Yes Smoking Status: Never smoker Hx Alcohol Use: No Hx Substance Use: No Review of Systems Review of Systems: All systems reviewed & are unremarkable except as noted in HPI & below Physical Exam Constitutional: WD/WN, vitals as above cooperative Eyes: PERRL, conjunctivae normal, anicteric sclerae ENMT: external ear and nose normal, oropharynx normal Neck: normal visual inspection and trachea midline Respiratory: normal respiratory effort, lungs clear to auscultation Cardiovascular: RRR, no murmur, no edema Heart Sounds: normal S1 and normal S2 Extremities: no pedal edema Chest (Breasts): Additional Comments: Chest wall non-tender to palpation Gastrointestinal (Abdomen): normal bowel sounds, soft, nontender, no hepatos plenomegaly Skin: no rashes, warm and dry Psychiatric: A+Ox3, euthymic affect Results & Data Results & Data ([facility]) Vital Signs (Past 12 Hours) Vital Signs Temp Pulse Resp BP Pulse Ox 11/11/19 21:30 75 14 182/97 H 98 11/11/19 21:01 78 20 174/99 H 97 11/11/19 20:30 78 23 152/75 H 97 11/11/19 20:17 75 25 H 164/67 H 99 11/11/19 19:46 37.0 C 86 18 180/79 H 99 Code Status & VTE Plan VTE Prophylaxis Plan VTE Prophylaxis will be ordered: Yes Supervising Physician Co-Signing Physician Notes Attending addendum: I have physically seen this patient, have supervised the medical residents activities, and agree with the H&P unless as otherwise noted. Assessment and Plan: Chest pain/hypertension- The patient will be admitted to telemetry for serial cardiac enzymes, serial EKG's, cardiac rhythm monitoring and a 2-D echocardiogram with Dopplers. Continue amlodipine. Hypokalemia to be reversed with oral and IV supplementation. If cardiac work-up is negative, patient should undergo a GI assessment. GERD- Continue famotidine 20 mg p.o. twice daily. Intolerance of PPIs in the past. Would add Carafate before meals and at bedtime if symptoms are persistent once cardiac assessment is complete. Remainder orders and notations as noted. Resident Activity Tracking Resident Involvement: Resident Care Provided Care Provided: Adult Hospital Medicine (1) Chest pain Chest pain type: unspecified Qualified Code(s): R07.9 - Chest pain, u nspecified
[2019-11-11] MEDS ORDERED: NITROGLYCERIN SL 0.4 MG/TAB TAB SL PRN (23:31)
[2019-11-11] MEDS ORDERED: PATIENT'S HEIGHT AND/OR WEIGHT NEEDED SCH (23:45)
[2019-11-11] MEDS ORDERED: POTASSIUM CHLORIDE 20 MEQ TABCR PO ONE (23:59)
[2019-11-12 02:35] LABS: Magnesium 2.1 mg/dl (1.8-2.4); Troponin I < 0.015 ng/ml (0-0.045)
[2019-11-12] MEDS: POTASSIUM CHLORIDE 20 MEQ TABCR PO SCH ×2 (08:32→15:41)
[2019-11-12] MEDS: LACTOBACILLUS ACIDOPHILUS (FLORANEX) TAB PO SCH ×2 (08:33→15:41)
[2019-11-12] MEDS ORDERED: METOPROLOL TARTRATE 25 MG TAB PO SCH (09:00)
[2019-11-12] MEDS ORDERED: TELMISARTAN 40 MG TAB PO SCH (09:00)
[2019-11-12] MEDS ORDERED: ENOXAPARIN INJ 40 MG/0.4 ML SYR SQ SCH (09:00)
[2019-11-12] MEDS ORDERED: hydroCHLOROthiazide 25 MG TAB PO SCH (09:00)
[2019-11-12 10:59] VITALS: O2SAT 98
--- NOTE | 2019-11-12 14:44 | XCELERA ---
[id number] [id number]
--- NOTE | 2019-11-12 15:29 | Ultrasound Report ---
ULTRASOUND RIGHT UPPER QUADRANT ABDOMEN CLINICAL HISTORY: Right upper quadrant abdominal pain. COMPARISON STUDY: Abdominal CT dated 10/18/2017. TECHNIQUE: Real-time, grayscale, and color flow sonography of the right upper quadrant of the abdomen was performed. Images are reviewed in the transverse and longitudinal planes. FINDINGS: Liver: The liver is normal in size and echotexture. There is no intrahepatic biliary ductal dilatatio n. The main portal vein is patent. Gallbladder: The gallbladder is normal in appearance. No gallstones are identified. There is no gallb ladder wall thickening or pericholecystic fluid. A sonographic Guerrero's sign is reportedly absent. Th e common bile duct measures up to 0.3 cm in diameter. Pancreas: Visualized portions of the pancreatic head and body are normal in appearance. Right kidney: Survey images of the right kidney demonstrate normal size and echotexture. There is no hydronephrosis. Ascites: None. IMPRESSION: Unremarkable sonographic assessment of the upper quadrant. No gallstones are identified. ACT 112: Negative or not required by law. Electronically signed by: Kamran Benavidez M.D. 11/12/2019 3:27 PM
[2019-11-12 15:34] VITALS: BP 164/81; TEMP 98.1
--- NOTE | 2019-11-12 16:43 | Discharge Summary ---
Date of Service November 12, 2019 Admission HPI Per Admitting Provider Mrs. Escalante is a 74 yo woman with a PMHx of hypertension, GERD and PVCs who presented to the ED for chest pain that began > 12 hours prior to evaluation. The sharp, stabbing pain was located in the central chest with radiation to the neck and below her R shoulder blade. Initially, the pain improved after eating breakfast, with a warm shower and a soft tissue massage. It returned later in the day at a higher intensity, ultimately prompting her to come in for evaluation. The pain was not exertional, positional, or pleuritic in nature. She denies associated SOB, nausea or diaphoresis. No trauma to the chest wall. She denies a high stress level. No underlying history of CAD; most recent stress ECHO in 2009 showed normal LV function, no EKG changes with activity, mild mitral regurgitation. Patient believes the pain is related to her longstanding stomach issues. She describes a gnawing sensation in her epigastrium, which occurs 2-3 hrs after eating. She has identified certain foods as being particularly "unkind," which include red sauces and citrus juices. She takes a daily probiotic and famotidine 20mg. She is scheduled to see Cuate SANTOS later this summer. ED course: Patient afebrile, HR 75, BP 182/97, RR 14, satting 98 on room air. CBC normal. Potassium low at 3.3. Troponin x1 undetectable. Lipase normal. EKG normal sinus rhythm without ST segment changes. Principal Diagnosis GERD Discharge Exam Constitutional WD/WN, vitals as above Eyes PERRL, conjunctivae normal, anicteric sclerae ENMT external ear and nose normal, oropharynx normal Neck trachea midline, no thyromegaly Respiratory normal respiratory effort, lungs clear to auscultation Cardiovascular RRR, no murmur, no edema Gastrointestinal (Abdomen) normal bowel sounds, soft, nontender, no hepatosplenomegaly Musculoskeletal no cyanosis or clubbing, extremities motor strength 5/5 Skin no rashes, warm and dry Neurologic patellar DTR's 2+ bilat, sensation intact and PERRL, EOMI, accommodation nl, no face palsy, no dysarthria Psychiatric A+Ox3, euthymic affect Lymphatic no cervical or axillary lymphadenopathy Discharge Data Allergies Allergy/AdvReac Type Severity Reaction Status Date / Time acetaminophen Allergy Unknown Unknown Verified 11/11/19 20:35 [From Darvocet-N] amlodipine [From Norvasc] Allergy Unknown Unknown Verified 11/11/19 20:35 lansoprazole [From Prevacid] Allergy Unknown Unknown Verified 11/11/19 20:35 pantoprazole [From Protonix] Allergy Unknown Unknown Verified 11/11/19 20:35 Sulfa (Sulfonamide Allergy Unknown LIPS Verified 11/11/19 20:35 Antibiotics) SWELLING erythromycin base AdvReac Unknown DIZZY Verified 11/11/19 23:41 propoxyphene AdvReac Unknown DIZZINESS Verified 11/11/19 23:41 Consultations 11/11/19 21:11 ED Decision to Admit Stat Ordered Studies 11/12/19 15:00 US abdomen limited Urgent Hospital Course (1) Chest pain: Mrs. Escalante is a 74 yo female with a PMHx of HTN and GERD presenting to emergency department with atypical chest pain. Patient admitted for chest pain rule out. - troponin undetectable on admission two further sets of troponin both < 0.015 - EKG normal sinus rhythm without ST segment changes - echocardiogram with EF > 70%, no wall motion abnormalities - HEART Score of 3 - suspicion for cardiac origin is low; GI etiology felt to be more likely no further work up as ACS ruled out (2) Acute hypokalemia: - 3.3 on admission - patient is on combination blood pressure pill with 25mg HCTZ, however also takes 20meq of oral KCl replacement three times daily - additional 20meq KCl ordered - issue resolved (3) GERD (gastroesophageal reflux disease): - currently taking famotidine 20mg (prescribed this but admits she is no longer taking it) - history of gnawing epigastric pain that begins 2-3 hours after eating is suspicious for peptic ulcer disease - patient would like benefit from PPI of note, she says she took omeprazole daily for two weeks and felt much better with it, but stopped because prescription ran out this was prescribed by an ENT doctor she saw since she tolerated Omeprazole without any side effects, will order her pantoprazole 40mg daily asked her specifically about allergy to pantoprazole and she could not recall what that would be, willing to try it again should be on Pantoprazole 40mg daily for at least 4 weeks, continue if it helps symptoms educated on not eating late at night, avoiding trigger foods, says she already has HOD elevated and sleeps on left side told her to use Tums or Maalox PRN for severe / break through symptoms checked GB ultrasound, this was normal, no gall stones or inflammation - patient scheduled to see GI 01/[address] Funez, she will keep this appointment (4) HTN (hypertension): - continue home metoprolol and telmisartan-HCTZ combo pill (5) Palpitations: - patient with known history of PVCs - occasional PVCs on monitor during this admission - continue metoprolol tartrate 25mg BID Code Status: DNR/DNI Dispo: Med/Surg with tele Diet: Heart Healthy DVT ppx: Lovenox 40mg, SQ, daily Total Time Total Time Spent Total Time Spent (In Minutes): 33 minutes Total Time Includes: Examination of the Patient, Discharge Planning and Medication Reconciliation Discharge Plan Discharge Items Patient Disposition: Home - Self-Care Reason For Visit: CHEST PAIN Discharge Diagnosis: Epigastric pain, likely uncontrolled GERD Chest pain, no evidence of acute coronary syndrome Condition on Discharge: Good Goals: treat GERD with Protonix for 2-4 weeks to see if symptoms improve follow up with Dr. Kaur and then follow up with Dr. Funez as scheduled Activity: Resume your previous activity Driving/Machine Use: No limitations Weightbearing: Full weightbearing Non-emergency contact: Primary Care Provider Call non-emergency contact if: you have any medication questions, your symptoms worsen and you have a fever Follow-up/Referrals: Braulio Kaur MD [Primary Care Provider] - (one week, phone call follow up is fine) Diet: Heart Healthy Addtl Attending Provider Instructions: Medications: see the changes detailed in the list below - PANTOPRAZOLE: 40mg daily, take in the evening with dinner, works for 24 hours to reduce reflux (heartburn) stop the Pepcid and Omeprazole Chest pain, epigastric pain, nausea could be uncontrolled gastroesophageal reflux (GERD) there was NO evidence that this is related to your heart no changes on EKG, negative heart enzymes x 3 sets and echocardiogram of the heart was completely normal ultrasound of the gall bladder showed no gall stones, no inflammation for treatment of GERD, I recommend that you take Protonix 40mg daily with dinner avoid eating late at night continue to sleep with head of bed elevated and sleep on left side avoid trigger foods for severe symptoms, recommend using Tums or Maalox as needed strongly recommend that you keep appointment with Dr. Funez in December if you have favorable results with the pantoprazole then I would recommend continuing for several months, definitely until you see Dr. Funez Pending Studies at Discharge: No Stand-Alone Forms: [facility], Smoking Cessation Medications and DC Order Prescriptions: New pantoprazole 40 mg tablet,delayed release (DR/EC) 40 mg PO DAILY 28 Days Qty: 28 RF: 0 Continued metoprolol tartrate 25 mg tablet 25 mg PO BID Qty: 180 RF: 3 telmisartan-hydrochlorothiazid 80-25 mg tablet 1 tab PO DAILY Qty: 90 RF: 3 gabapentin 100 mg capsule 200 mg PO HS 30 Days Qty: 90 RF: 3 Vitamin B12 Liquid 1 dose PO DAILY RF: 0 potassium chloride 10 mEq capsule, extended release 20 meq PO TID RF: 0 multivitamin Tablet 1 tab PO DAILY RF: 0 meclizine 25 mg Tablet 25 mg PO TID PRN (Reason: Vertigo) RF: 0 loratadine [Claritin] 10 mg Tablet 10 mg PO DAILY PRN (Reason: allergies) RF: 0 Lactinex 1 million cell Tablet,Chewable 2 - 3 tab PO TIDM RF: 0 albuterol sulfate 90 mcg/actuation HFA aerosol inhaler 3 inha INH Q6H PRN (Reason: shortness of breath or wheezing) Qty: 8.5 RF: 1 triamcinolone acetonide 55 mcg aerosol,spray 1 spray INTRANASAL BID PRN (Reason: Congestion) RF: 0 Discontinued famotidine 40 mg tablet 40 mg PO HS RF: 0 omeprazole 20 mg capsule,delayed release(DR/EC) 20 mg PO DAILY PRN (Reason: Acid Reflux) RF: 0 Discharge Orders: Discharge Order (Routine); Ordered 11/12/19 Ordered By: Abhijeet Avalos Admission Data Admit Date/Time: 11/11/19 21:47 Attending Provider: Abhijeet Avalos Admit Provider: Shirley Cleaning Primary Care Provider: Braulio Kaur. Other Providers: Frankie Jha Other Interventions: Discharge Summary Assessment (RN) Last Done: 11/12/19 17:08 DC Date/Time DO NOT enter until pt leaves facility: 11/12/19 17:57 Coding Level of Care Code 67634 OBS Care - Discharge Diagnoses Chest pain R07.9 Chest pain type: unspecified Acute hypokalemia E87.6 GERD (gastroesophageal reflux disease) K21.9 HTN (hypertension) I10 Palpitations R00.2
[2019-11-12 17:12] VITALS: PULSE 65
--- NOTE | 2019-11-12 17:22 | Electrocardiogram Report ---
Test Reason : Blood Pressure : / mmHG Vent. Rate : 081 BPM Atrial Rate : 081 BPM P-R Int : 172 ms QRS Dur : 080 ms QT Int : 372 ms P-R-T Axes : 059 034 038 degrees QTc Int : 432 ms Normal sinus rhythm Normal ECG When compared with ECG of 11-NOV-2018 14:32, No significant change was found Confirmed by Naseem Navas ([id number]) on 11/12/2019 5:22:15 PM Referred By: REFERRED SELF Confirmed By:Naseem Navas
--- NOTE | 2019-11-12 17:28 | Electrocardiogram Report ---
Test Reason : Blood Pressure : / mmHG Vent. Rate : 076 BPM Atrial Rate : 076 BPM P-R Int : 180 ms QRS Dur : 084 ms QT Int : 404 ms P-R-T Axes : 048 026 039 degrees QTc Int : 454 ms Normal sinus rhythm Normal ECG When compared with ECG of 11-NOV-2019 19:55, No significant change was found Confirmed by Naseem Navas ([id number]) on 11/12/2019 5:28:04 PM Referred By: REFERRED SELF Confirmed By:Naseem Navas
[2019-11-12] MEDS ORDERED: FAMOTIDINE 40 MG TABLET PO SCH (21:00)
[2019-11-12] MEDS ORDERED: GABAPENTIN 100 MG CAP PO SCH (21:00)
--- NOTE | 2019-11-12 23:48 | Billing Data ---
Date of Service November 12, 2019 Coding Level of Care Code 41821 OBS Care - Level 3
== END 2019-11-12 17:57 | disposition home or self-care (01) ==
LOC: ED 19:44 → 2N 19:44 → SUATTDRO 21:47 → 2N 22:43

== ENCOUNTER 2021-05-27 14:43 | Inpatient (IN) ==
[2021-05-27] MEDS ORDERED: ACETAMINOPHEN 1,000 MG/100 ML VIAL IV STA (15:24)
[2021-05-27] MEDS ORDERED: fentaNYL citrate 100 MCG/2 ML VIAL IV STA (15:24)
[2021-05-27] MEDS: SODIUM CHLORIDE 0.9% 1000ML 1,000 ML IV SCH ×2 (15:30→16:20)
[2021-05-27 15:43] LABS: Eosinophils # (auto) 0.03 K/uL (0-0.5); Eosinophils % (auto) 0.5 %; Hematocrit (blood only) 33.7 % (37-47); Hemoglobin 11.1 g/dL (12.0-16.0); Immature Granulocytes # (auto) 0.01 K/uL (0.00-0.02); Immature Granulocytes % (auto) 0.2 %; Lymphocytes # (auto) 0.88 K/uL (1.2-3.4); Lymphocytes % (auto) 14.1 %; Mean Corpuscular Hemoglobin 30.6 pg (25-34); Mean Corpuscular Hgb Conc 32.9 g/dL (32-36); Mean Corpuscular Volume 92.8 fL (80-100); Mean Platelet Volume 9.9 fL (7.4-10.4); Monocytes # (auto) 0.72 K/uL (0.11-0.59); Monocytes % (auto) 11.5 %; Neutrophils # (auto) 4.62 K/uL (1.4-6.5); Neutrophils % (auto) 73.7 %; Platelet Count 197 K/uL (130-400); RDW Coefficient of Variation 12.9 % (11.5-14.5); RDW Standard Deviation 43.6 fL (36.4-46.3); Red Blood Count 3.63 M/uL (4.2-5.4); White Blood Count 6.26 K/uL (4.8-10.8)
--- NOTE | 2021-05-27 15:54 | Emergency Department Note ---
History of Present Illness General Chief complaint: Pain (Generalized) Stated complaint: L SIDE ABD SHOULDER LEG Time Seen by Provider: 05/27/21 14:56 Source: patient and family Mode of arrival: ambulatory Limitations: no limitations History of Present Illness Provider complaint: Left flank and back pain Onset (ago): day(s) 1 Radiation: abdomen and distal Severity: severe Pain Consistency: + intermittent Maximum Pain Intensity: 10 Relieved By: + none Exacerbated By: + movement Associated symptoms: no chest pain, no fever/chills, no nausea/vomiting or no shortness of breath This is a 75-year-old female presents the emergency department complaining of left flank and back pain. Patient states she had some very mild discomfort in this area last night, however when she awoke this morning she began having very severe intermittent episodes of pain that she describes like spasms. She states that she has had intermittent back spasms previously these are more severe and worse. She states previous spasms been related to GERD. Patient states she does take pantoprazole. She states when this began this morning she began taking additional medications in her usual fashion such as additional antacids, probiotics, and OTC medication for pain. Patient states she does have a prior history of back pain, but denies any similar episodes such as today. She denies any change in activity or trauma. She states she does help care for one of her grandchildren who is a toddler and weighs 20 pounds. She denies any change in medications or recent illness. No change in bowel or bladder function. Pt seen during a time of high acuity and national emergency pandemic while wearing PPE. Home Medications Medication Instructions Recorded Confirmed Type Lactobacillus acidoph-L.bulgaricus 2 - 3 tab PO TIDM 11/11/18 05/27/21 History 1 million cell chewable tablet (Lactinex) loratadine 10 mg tablet (Claritin) 10 mg PO DAILY PRN 11/11/18 05/27/21 History meclizine 25 mg tablet 25 mg PO TID PRN 11/11/18 05/27/21 History triamcinolone acetonide 55 mcg 1 spray INTRANASAL BID PRN 03/03/19 05/27/21 History nasal spray aerosol albuterol sulfate 90 mcg/actuation 3 puffs INH Q6H PRN #18 gm 01/13/20 05/27/21 Rx aerosol inhaler potassium chloride 10 mEq See Rx Instructions PO TID #180 cap 11/04/20 05/27/21 Rx capsule,extended release metoprolol tartrate 25 mg tablet 25 mg PO BID #180 tab 03/31/21 05/27/21 Rx ondansetron HCl 4 mg tablet 4 mg PO Q8H PRN #90 tab 04/11/21 05/27/21 Rx betamethasone dipropionate 0.05 % 1 applic TOPICAL BID PRN 04/20/21 05/27/21 History topical cream gabapentin 100 mg capsule 200 mg PO HS PRN 04/20/21 05/27/21 History lidocaine 4 % topical patch 1 patch TOPICAL DAILY PRN 04/20/21 05/27/21 History (Lidocaine Pain Relief) telmisartan 80 1 tab PO QAM 04/20/21 05/27/21 History mg-hydrochlorothiazide 25 mg tablet terbinafine HCl 1 % topical cream 1 applic TOPICAL BID #30 g 04/27/21 05/27/21 Rx pantoprazole 40 mg tablet,delayed 40 mg PO DAILY 05/27/21 05/27/21 History release apixaban 5 mg tablet (Eliquis) 5 mg PO BID 30 Days #60 tab 05/28/21 Rx apixaban 5 mg tablet (Eliquis) 10 mg PO BID 7 Days #14 tab 05/28/21 Rx rivaroxaban 15 mg tablet (Xarelto) 15 mg PO BID 21 Days #42 tab 05/28/21 Rx Allergies Allergy/AdvReac Type Severity Reaction Status Date / Time Sulfa (Sulfonamide Allergy Intermediate LIPS Verified 05/27/21 16:43 Antibiotics) SWELLING amlodipine [From [facility]] Allergy Unknown Unknown Verified 05/27/21 16:43 garlic Allergy Gastrointestinal Verified 05/27/21 16:43 Upset erythromycin base AdvReac Mild DIZZY Verified 05/27/21 16:43 propoxyphene AdvReac Mild DIZZINESS Verified 05/27/21 16:43 Past Med/Surg History Medical History Abdominal pain Anemia Back problem GERD (gastroesophageal reflux disease) History of depression History of migraine HTN (hypertension) Nausea Radicular pain in right arm Sciatica 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 (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 joint disorder) 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) Surgical History History of colonoscopy History of D&C History of esophagogastroduodenoscopy (EGD) History of partial hysterectomy History of tonsillectomy Family History Mother Diabetes Alzheimer disease Hypertension Family/Other Diabetes Sister Diabetes Hypertension Brother Hypertension Father Lung cancer Cancer Other No family history of adverse response to anesthesia No family history of bleeding disorder Denies family history of Ovarian cancer Prostate cancer Myocardial infarction Breast cancer Colorectal cancer Social History Smoking Status: Never smoker Second Hand Exposure: Yes; Hx Alcohol Use: No Hx Substance Use: No Preferred Language: Tajik Communication Ability: Effective Visual Impairment: No Limitations Hearing Ability: Normal Bank Credit Card Collection Clerk Required: No Beliefs That Will Affect Care: None marital status: Current Living Situation: Spouse current occupational status: retired 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 Feels Safe at Home: Yes Childhood Exposure to Second-Hand Smoke: Yes Dental Care, Regularly: Yes Physical Activity Frequency: 5-6 Times per Week Seatbelt Use: always Sunscreen Use: No Assistive Devices: Glasses Review of Systems A total of 10 systems reviewed and were otherwise negative All systems reviewed & are unremarkable except as noted in HPI & below Physical Exam Vital Signs Vital Signs - 24 hr 05/27/21 14:47 Temperature 36.9 C Temperature Source Temporal Artery Scan Pulse Rate 102 H Respiratory Rate 18 Blood Pressure 160/80 H Blood Pressure Mean 106 Pulse Oximetry 90 Oxygen Delivery Method Room Air Sepsis Recent Fever Within 48 Hours No Sepsis New/Unexplained Change in Mental Status No Sepsis Action Taken by Nursing No Action Required GENERAL: alert, uncomfortable appearing, well nourished, moderate distress, non- toxic EYE EXAM: normal conjunctiva, PERRL and EOM's grossly intact OROPHARYNX: no exudate, no erythema, lips, buccal mucosa, and tongue normal and mucous membranes are moist NECK: supple, no nuchal rigidity, no adenopathy, non-tender LUNGS: Clear to auscultation. Normal chest wall mechanics, no w/r/r HEART: no murmurs, S1 normal and S2 normal ABDOMEN: abdomen soft, non-tender, normo-active bowel sounds, no masses, no rebound or guarding. BACK: Back is symmetrical on inspection and there is no deformity, no midline tenderness, tenderness with palpation in the left CVA and left lateral lumbar region. SKIN: no rashes and no bruising UPPER EXTREMITIES: upper extremities are grossly normal. FROM, nml pulses b/l. No reproducible pain with palpation of the left upper back or left scapular region. LOWER EXTREMITIES: No pitting edema. FROM, nml pulses b/l. NEURO EXAM: Normal sensorium, cranial nerves II-XII grossly intact, normal speech, no gross weakness of arms, no gross weakness of legs. Gross sensation intact. Course Course 1720: Patient updated on CT results. 173: Case discussed with Dr. Mayfield, [facility]. Administered Medications Acetaminophen (Acetaminophen 325 Mg Tab) 650 mg PO Q8H [facility] Stop: 06/27/21 11:59 Last Admin: 05/28/21 13:28 Dose: 650 mg Documented by: [id number] Hydrochlorothiazide (Hydrochlorothiazide 25 Mg Tab) 25 mg PO QAM [facility] Stop: 06/27/21 08:59 Last Admin: 05/28/21 11:22 Dose: 25 mg Documented by: [id number] Hydromorphone HCl (Hydromorphone Inj 0.5 Mg/0.5 Ml Syr) 0.5 mg IV Q4H PRN PRN Reason: Severe Pain (7,8,9,10) on NRS Stop: 06/10/21 22:01 Last Admin: 05/28/21 08:12 Dose: 0.5 mg Documented by: [id number] Admin: 05/28/21 03:55 Dose: 0.5 mg Documented by: [id number] Admin: 05/27/21 22:10 Dose: 0.5 mg Documented by: [id number] Heparin Sodium/Dextrose (Heparin Sodium/Dextrose) 25,000 units in 500 mls @ 13 mls/hr IV .Q24H [facility]; Protocol Stop: 05/28/21 22:00 Last Titration: 05/28/21 02:07 Dose: 650 units/hr, 13 mls/hr Documented by: [id number] Cosigned by: [id number] Titration: 05/28/21 01:09 Dose: 0 units/hr, 0 mls/hr Documented by: [id number] Cosigned by: [id number] Admin: 05/27/21 18:16 Dose: 16 units/hr, 0.3 mls/hr Documented by: [id number] Cosigned by: [id number] Ketorolac Tromethamine (Ketorolac Tromethamine 15 Mg/Ml Vial) 15 mg IV Q6H PRN PRN Reason: Pain Stop: 06/02/21 16:20 Last Admin: 05/28/21 16:42 Dose: 15 mg Documented by: [id number] Metoprolol Tartrate (Metoprolol Tartrate 25 Mg Tab) 25 mg PO BID [facility] Stop: 06/26/21 22:01 Last Admin: 05/28/21 10:12 Dose: 25 mg Documented by: [id number] Admin: 05/27/21 23:16 Dose: 25 mg Documented by: [id number] Pantoprazole Sodium (Pantoprazole 40 Mg Tab) 40 mg PO BID [facility] Stop: 06/26/21 22:14 Last Admin: 05/28/21 10:13 Dose: 40 mg Documented by: [id number] Admin: 05/27/21 22:10 Dose: 40 mg Documented by: [id number] Potassium Chloride (Potassium Chloride Crtab 20 Meq Tabcr) 20 meq PO BID [facility] Stop: 06/27/21 10:44 Last Admin: 05/28/21 11:30 Dose: Not Given Documented by: [id number] Telmisartan (Telmisartan 40 Mg Tab) 80 mg PO QAM [facility] Stop: 06/27/21 08:59 Last Admin: 05/28/21 11:22 Dose: 80 mg Documented by: [id number] Discontinued Medications Acetaminophen (Acetaminophen 325 Mg Tab) Confirm Administered Dose 650 mg .ROUTE .STK-MED ONE Stop: 05/27/21 21:08 Last Admin: 05/27/21 21:10 Dose: 650 mg Documented by: [id number] Acetaminophen (Acetaminophen 325 Mg Tab) 650 mg PO Q4H PRN PRN Reason: Pain or Fever Stop: 06/26/21 22:01 Last Admin: 05/28/21 06:13 Dose: 650 mg Documented by: [id number] Fentanyl Citrate (Fentanyl Citrate 100 Mcg/2 Ml Vial) 50 mcg IV NOW STA Stop: 05/27/21 15:25 Last Admin: 05/27/21 16:19 Dose: 50 mcg Documented by: [id number] Heparin Sodium (Porcine) (Heparin Sod (Porcine) 1000 Unit/Ml) 1 units IV NOW ONE Stop: 05/27/21 17:46 Last Admin: 05/27/21 18:17 Dose: 4,000 units Documented by: [id number] Cosigned by: [id number] Heparin Sodium/Dextrose (Heparin Iv Adult Wt-Based Low-Dose With Bolus Protocol) 1 ea N/A NOW STA; Protocol Stop: 05/27/21 17:31 Last Admin: 05/27/21 19:04 Dose: Not Given Documented by: [id number] Hydromorphone HCl (Hydromorphone Inj 0.5 Mg/0.5 Ml Syr) Confirm Administered Dose 0.5 mg .ROUTE .STK-MED ONE Stop: 05/27/21 21:58 Last Admin: 05/27/21 22:17 Dose: Not Given Documented by: [id number] Sodium Chloride (Nss 1000ml) 1,000 mls @ 125 mls/hr IV .Q8H [facility] Stop: 06/26/21 15:29 Last Infusion: 05/28/21 17:03 Dose: 0 mls/hr Documented by: [id number] Admin: 05/28/21 07:55 Dose: 125 mls/hr Documented by: [id number] Infusion: 05/28/21 07:55 Dose: 125 mls/hr Documented by: [id number] Admin: 05/28/21 00:17 Dose: 125 mls/hr Documented by: [id number] Infusion: 05/27/21 22:27 Dose: 0 mls/hr Documented by: [id number] Admin: 05/27/21 15:30 Dose: 125 mls/hr Documented by: [id number] Acetaminophen (Ofirmev) 1,000 mg in 100 mls @ 400 mls/hr IV NOW STA Stop: 05/27/21 15:38 Last Infusion: 05/27/21 16:49 Dose: 0 mls/hr Documented by: [id number] Admin: 05/27/21 16:20 Dose: 400 mls/hr Documented by: [id number] Ioversol (Optiray 320 125ml) 125 ml IV ONCE ONE Stop: 05/27/21 16:31 Last Admin: 05/27/21 16:36 Dose: 125 ml Documented by: [id number] Pantoprazole Sodium (Pantoprazole 40 Mg Tab) Confirm Administered Dose 40 mg .ROUTE .STK-MED ONE Stop: 05/27/21 22:08 Last Admin: 05/27/21 22:17 Dose: Not Given Documented by: [id number] Critical Care Time Critical Care Time: Yes Total Critical Care Time: 39 Critical care of 39 min performed to assess and manage high likelihood of life- threatening pulmonary embolism, involving labs and imaging performed with assessment to evaluate pain and dyspnea diagnosis with frequent reassessment. This time includes bedside time, treatment discussions with patient/family/consultants, documentation time and excludes procedure time. Medical Decision Making Differential Diagnosis Differential diagnosis: Etiologies such as shingles, pyelonephritis/UTI, renal colic, appendicitis, diverticulitis, mesenteric ischemia, torsion, aortic pathology, infections, inflammatory bowel disease, bowel obstruction, PUD, biliary pathology, as well as others were entertained. Medical Records Attestation: I reviewed the patient's medical records. Home Medications Current Medication List: was personally reviewed by me Laboratory Data Attestation: I reviewed the patient's lab results. Result diagrams: 05/27/21 15:35 05/27/21 15:35 Lab Results 05/27/21 05/27/21 05/27/21 Range/Units 15:35 15:35 18:21 WBC 6.26 (4.8-10.8) K/uL RBC 3.63 L (4.2-5.4) M/uL Hgb 11.1 L (12.0-16.0) g/dL Hct 33.7 L (37-47) % MCV 92.8 (80-100) fL MCH 30.6 (25-34) pg MCHC 32.9 (32-36) g/dL RDW Std Deviation 43.6 (36.4-46.3) fL RDW Coeff of Yair 12.9 (11.5-14.5) % Plt Count 197 (130-400) K/uL MPV 9.9 (7.4-10.4) fL Immature Gran % (Auto) 0.2 % Neut % (Auto) 73.7 % Lymph % (Auto) 14.1 % Bethel % (Auto) 11.5 % Eos % (Auto) 0.5 % Baso % (Auto) 0.0 % Neut # (Auto) 4.62 (1.4-6.5) K/uL Lymph # (Auto) 0.88 L (1.2-3.4) K/uL Bethel # (Auto) 0.72 H (0.11-0.59) K/uL Eos # (Auto) 0.03 (0-0.5) K/uL Baso # (Auto) 0.00 (0-0.2) K/uL Immature Gran # (Auto) 0.01 (0.00-0.02) K/uL Sodium 140 (136-145) mmol/L Potassium 3.4 L (3.5-5.1) mmol/L Chloride 107 (98-107) mmol/L Carbon Dioxide 27 (21-32) mmol/L Anion Gap 6.0 (3-11) BUN 12 (7-18) mg/dl Creatinine 0.72 (0.6-1.2) mg/dl Est Cr Clr Drug Dosing 71.8 ml/min Est GFR ( Amer) 94.9 ml/min Est GFR (Non-Af Amer) 81.9 ml/min BUN/Creatinine Ratio 16.0 (10-20) Glucose 95 (70-99) mg/dl Calcium 9.4 (8.5-10.1) mg/dl Magnesium 2.2 (1.8-2.4) mg/dl Total Bilirubin 0.4 (0.2-1) mg/dl AST 9 L (15-37) U/L ALT 15 (12-78) U/L Alkaline Phosphatase 76 (45-117) U/L Troponin I < 0.015 (0-0.045) ng/ml NT-Pro-B Natriuret Pep 205 (0-900) pg/ml Total Protein 7.2 (6.4-8.2) gm/dl Albumin 3.4 (3.4-5.0) gm/dl Globulin 3.8 (2.5-4.0) gm/dl Albumin/Globulin Ratio 0.9 (0.9-2) Lipase 94 (73-393) U/L COVID-19 Eval Order Covid19 at [facility] SARS-CoV-2 (PCR) (Negative) 05/27/21 Range/Units 18:21 WBC (4.8-10.8) K/uL RBC (4.2-5.4) M/uL Hgb (12.0-16.0) g/dL Hct (37-47) % MCV (80-100) fL MCH (25-34) pg MCHC (32-36) g/dL RDW Std Deviation (36.4-46.3) fL RDW Coeff of Yair (11.5-14.5) % Plt Count (130-400) K/uL MPV (7.4-10.4) fL Immature Gran % (Auto) % Neut % (Auto) % Lymph % (Auto) % Bethel % (Auto) % Eos % (Auto) % Baso % (Auto) % Neut # (Auto) (1.4-6.5) K/uL Lymph # (Auto) (1.2-3.4) K/uL Bethel # (Auto) (0.11-0.59) K/uL Eos # (Auto) (0-0.5) K/uL Baso # (Auto) (0-0.2) K/uL Immature Gran # (Auto) (0.00-0.02) K/uL Sodium (136-145) mmol/L Potassium (3.5-5.1) mmol/L Chloride (98-107) mmol/L Carbon Dioxide (21-32) mmol/L Anion Gap (3-11) BUN (7-18) mg/dl Creatinine (0.6-1.2) mg/dl Est Cr Clr Drug Dosing ml/min Est GFR ( Amer) ml/min Est GFR (Non-Af Amer) ml/min BUN/Creatinine Ratio (10-20) Glucose (70-99) mg/dl Calcium (8.5-10.1) mg/dl Magnesium (1.8-2.4) mg/dl Total Bilirubin (0.2-1) mg/dl AST (15-37) U/L ALT (12-78) U/L Alkaline Phosphatase (45-117) U/L Troponin I (0-0.045) ng/ml NT-Pro-B Natriuret Pep (0-900) pg/ml Total Protein (6.4-8.2) gm/dl Albumin (3.4-5.0) gm/dl Globulin (2.5-4.0) gm/dl Albumin/Globulin Ratio (0.9-2) Lipase (73-393) U/L COVID-19 Eval Order SARS-CoV-2 (PCR) NEGATIVE (Negative) Imaging Data Radiologist's Impression: Abdomen/Pelvis CTA 05/27/21 15:22 CHEST CTA for AORTIC DISSECTION, ABDOMEN AND PELVIS CTA FOR AORTIC DISSECTION CT DOSE: 1247.21 mGy.cm HISTORY: Assess for aortic dissection. left shoulder/flank pain TECHNIQUE: Multiaxial CT images of the chest, abdomen, and pelvis were performed both before and after the intravenous administration of contrast to evaluate the aorta. Maximal intensity projection images were also obtained. A dose lowering technique was utilized adhering to the principles of ALARA. COMPARISON STUDY: Abdomen and pelvis CT 05/04/2021. Chest CTA 10/25/2015. FINDINGS: Chest CTA: Noncontrast imaging shows no evidence for an intramural hematoma wit hin the thoracic aorta. There is mild calcified plaque within the thoracic aorta. There is normal caliber thoracic aorta with no evidence for dissection. There are multiple scattered bilateral segmental and subsegmental pulmonary emboli. The main pulmonary arteries remained patent. No evidence for right-sided heart strain. The heart is normal in size. No pleural or pericardial effusions. No fractures within the visualized osseous structures. No mediastinal or hilar lymphadenopathy. Normal esophagus. No pneumothorax. Mild biapical pleural- parenchymal scarlike densities are noted. The central airways are patent. Patchy bilateral lobe densities are nonspecific but favor dependent change/atelectasis. Abdomen/pelvis CTA: Mild calcified plaque within the normal caliber abdominal aorta. No evidence for an aortic dissection. The single bilateral renal arteries are patent. The celiac and mesenteric arteries are also patent. There is mild calcified plaque within the iliac arteries without significant stenosis. No fractures identified. The liver, gallbladder, pancreas, spleen, adrenal glands, and kidneys are within normal limits. No hydronephrosis. No retroperitoneal lymphadenopathy. The bladder is unremarkable. Prior hysterectomy. No pelvic free fluid. Colonic diverticulosis. No evidence for acute diverticulitis. No bowel wall thickening or obstruction. IMPRESSION: 1. Multiple bilateral segmental and subsegmental pulmonary emboli. 2. Normal caliber aorta with no evidence for dissection. 3. Patchy bilateral lower lobe densities are nonspecific but favor dependent change/atelectasis. 4. Colonic diverticulosis. No evidence for diverticulitis. 5. Prior hysterectomy. ACT 112: Negative or not required by law. Electronically signed by: Mando Jaime M.D. 05/27/2021 5:09 PM Chest CTA 05/27/21 15:22 CHEST CTA for AORTIC DISSECTION, ABDOMEN AND PELVIS CTA FOR AORTIC DISSECTION CT DOSE: 1247.21 mGy.cm HISTORY: Assess for aortic dissection. left shoulder/flank pain TECHNIQUE: Multiaxial CT images of the chest, abdomen, and pelvis were performed both before and after the intravenous administration of contrast to evaluate the aorta. Maximal intensity projection images were also obtained. A dose lowering technique was utilized adhering to the principles of ALARA. COMPARISON STUDY: Abdomen and pelvis CT 05/04/2021. Chest CTA 10/25/2015. FINDINGS: Chest CTA: Noncontrast imaging shows no evidence for an intramural hematoma within the thoracic aorta. There is mild calcified plaque within the thoracic aorta. There is normal caliber thoracic aorta with no evidence for dissection. There are multiple scattered bilateral segmental and subsegmental pulmonary emboli. The main pulmonary arteries remained patent. No evidence for right-sided heart strain. The heart is normal in size. No pleural or pericardial effusions. No fractures within the visualized osseous structures. No mediastinal or hilar lymphadenopathy. Normal esophagus. No pneumothorax. Mild biapical pleural- parenchymal scarlike densities are noted. The central airways are patent. Patchy bilateral lobe densities are nonspecific but favor dependent change/atelectasis. Abdomen/pelvis CTA: Mild calcified plaque within the normal caliber abdominal aorta. No evidence for an aortic dissection. The single bilateral renal arteries are patent. The celiac and mesenteric arteries are also patent. There is mild calcified plaque within the iliac arteries without significant stenosis. No fractures identified. The liver, gallbladder, pancreas, spleen, adrenal glands, and kidneys are within normal limits. No hydronephrosis. No retroperitoneal lymphadenopathy. The bladder is unremarkable. Prior hysterectomy. No pelvic free fluid. Colonic diverticulosis. No evidence for acute diverticulitis. No bowel wall thickening or obstruction. IMPRESSION: 1. Multiple bilateral segmental and subsegmental pulmonary emboli. 2. Normal caliber aorta with no evidence for dissection. 3. Patchy bilateral lower lobe densities are nonspecific but favor dependent change/atelectasis. 4. Colonic diverticulosis. No evidence for diverticulitis. 5. Prior hysterectomy. ACT 112: Negative or not required by law. Electronically signed by: Mando Jaime M.D. 05/27/2021 5:09 PM ECG Data Attestation: I personally reviewed and interpreted this ECG as follows: Indication: + back/shoulder pain and + chest pain Rate (beats per minute): 87 Rhythm: + normal sinus ECG Intervals/blocks: + Normal QRS and + Normal QT ECG Loyal: + Normal ECG ST segments: + Normal ST segments MDM Narrative This is a 75-year-old female who presents with left flank and back pain. No trauma or recent illness. Labs drawn and sent which are reassuring and patient sent for CT imaging initially to rule out occult vascular etiology or referred pain from infection. Patient found to have multiple pulmonary emboli. No prior history of DVT/PE although patient does state there is family history. Patient never had a hypercoagulable work-up. Patient made aware of all results, per bedside discussion with her no contraindication to initiation of anticoagulation. Heparin drip ordered in case discussed with hospitalist. Patient remained hemodynamically stable, troponin negative, no evidence of right heart strain. No hypoxia noted, and pain improved with medication. An order was placed for continuous cardiac monitoring. The monitor shows a rate of __86_ with _normal sinus_ rhythm. Impression & Plan Acute left flank pain, Multiple pulmonary emboli Discharge Plan Visit Data Chief Complaint: Pain (Generalized) Stated Complaint: L SIDE ABD SHOULDER LEG ED Provider: Radha Doe Discharge Problem: Acute left flank pain, Multiple pulmonary emboli Patient Disposition: Admitted As Inpatient Condition: Good Discharge Instructions Interventions: ED Discharge Assessment Last Done: 05/27/21 22:01
[2021-05-27 16:06] LABS: Alanine Aminotransferase 15 U/L (12-78); Albumin Level 3.4 gm/dl (3.4-5.0); Aspartate Aminotransferase 9 U/L (15-37); Blood Urea Nitrogen 12 mg/dl (7-18); Calcium 9.4 mg/dl (8.5-10.1); Carbon Dioxide 27 mmol/L (21-32); Chloride 107 mmol/L (98-107); Creatinine Clr Calc Pharmacy 71.8 ml/min; Est GFR (African American) 94.9 ml/min; Est GFR (Non-African American) 81.9 ml/min; Glucose 95 mg/dl (70-99); Lipase 94 U/L (73-393); Magnesium 2.2 mg/dl (1.8-2.4); Potassium 3.4 mmol/L (3.5-5.1); Sodium 140 mmol/L (136-145)
[2021-05-27 16:11] LABS: Albumin Globulin Ratio 0.9 (0.9-2); Alkaline Phosphatase 76 U/L (45-117); Bilirubin,Total 0.4 mg/dl (0.2-1); Globulin 3.8 gm/dl (2.5-4.0); NT Pro B Type Natriuretic Pept 205 pg/ml (0-900); Total Protein 7.2 gm/dl (6.4-8.2); Troponin I < 0.015 ng/ml (0-0.045)
[2021-05-27] MEDS ORDERED: OPTIRAY 320 125ml IV ONE (16:30)
--- NOTE | 2021-05-27 17:11 | CT Scan Report ---
CHEST CTA for AORTIC DISSECTION, ABDOMEN AND PELVIS CTA FOR AORTIC DISSECTION CT DOSE: 1247.21 mGy.cm HISTORY: Assess for aortic dissection. left shoulder/flank pain TECHNIQUE: Multiaxial CT images of the chest, abdomen, and pelvis were performed both before and afte r the intravenous administration of contrast to evaluate the aorta. Maximal intensity projection imag es were also obtained. A dose lowering technique was utilized adhering to the principles of ALARA. COMPARISON STUDY: Abdomen and pelvis CT 05/04/2021. Chest CTA 10/25/2015. FINDINGS: Chest CTA: Noncontrast imaging shows no evidence for an intramural hematoma within the thoracic aorta . There is mild calcified plaque within the thoracic aorta. There is normal caliber thoracic aorta wi th no evidence for dissection. There are multiple scattered bilateral segmental and subsegmental pulm onary emboli. The main pulmonary arteries remained patent. No evidence for right-sided heart strain. The heart is normal in size. No pleural or pericardial effusions. No fractures within the visualized osseous structures. No mediastinal or hilar lymphadenopathy. Normal esophagus. No pneumothorax. Mild biapical pleural-parenchymal scarlike densities are noted. The central airways are patent. Patchy forrest ateral lobe densities are nonspecific but favor dependent change/atelectasis. Abdomen/pelvis CTA: Mild calcified plaque within the normal caliber abdominal aorta. No evidence for an aortic dissection. The single bilateral renal arteries are patent. The celiac and mesenteric arter ies are also patent. There is mild calcified plaque within the iliac arteries without significant domitila nosis. No fractures identified. The liver, gallbladder, pancreas, spleen, adrenal glands, and kidneys are within normal limits. No hydronephrosis. No retroperitoneal lymphadenopathy. The bladder is unre markable. Prior hysterectomy. No pelvic free fluid. Colonic diverticulosis. No evidence for acute div erticulitis. No bowel wall thickening or obstruction. IMPRESSION: 1. Multiple bilateral segmental and subsegmental pulmonary emboli. 2. Normal caliber aorta with no evidence for dissection. 3. Patchy bilateral lower lobe densities are nonspecific but favor dependent change/atelectasis. 4. Colonic diverticulosis. No evidence for diverticulitis. 5. Prior hysterectomy. ACT 112: Negative or not required by law. Electronically signed by: Mando Jaime M.D. 05/27/2021 5:09 PM
[2021-05-27] MEDS ORDERED: Heparin IV Adult Wt-Based Low-Dose WITH Bolus Protocol STA (17:30)
--- NOTE | 2021-05-27 17:40 | History & Physical Report ---
Date of Service May 27, 2021 Assessment & Plan (1) Multiple pulmonary emboli: Plan: Rhina is a 75-year-old female who presents with chest pain worsened with inspiration and she was found to have multiple unprovoked bilateral segmental and subsegmental pulmonary emboli on CTA. Unprovoked bilateral PE History of a brother who young from blood clots and grandneice with blood clot Patient denies prior history of blood clots, although does note her left leg was sore in the calf a few days before her shortness of breath and pain began No trauma or other identified provoking cause for potential thrombus Patient reports she is up-to-date on routine cancer screenings. Up-to-date on mammography with ultrasound, colonoscopy, and has had a CTabdomen for some abdominal pain which was negative. Reports family history of breast cancer, unknown gene status, otherwise denies family history of malignancy. PT/INR/PTT pending. Given family history of factor V Leiden, antiphospholipid autoantibodies ordered. - CTA: Multiple bilateral segmental and subsegmental pulmonary emboli. Normal caliber aorta with no evidence for dissection. Patchy bilateral lower lobe densities are nonspecific but favor dependent change/atelectasis. Colonic diver ticulosis. No evidence for diverticulitis. Prior hysterectomy. - PESI Class III-IV risk - No leukocytosis Hemoglobin 11.1 trop negative - EKG: nsr, no right heart strain on ecg - TTE pending Continue heparin GTT. Blood pressure 155/78, pulse 80 at time of bedside assessment. Hemodynamically stable at bedside assessment without hypoxia. (2) GERD (gastroesophageal reflux disease): Plan: Protonix 40 mg twice daily (3) HTN (hypertension): Plan: Continue telmisartanhydrochlorothiazide Continue metoprolol 25 mg tartrate twice daily (4) Asthma: Plan: Albuterol as needed (5) Hypokalemia: Plan: Hypokalemia - K 3.4 - Mg pend Oral repletion ordered Patient on baseline potassium repletion and thiazide History of Present Illness Primary Care Provider: Braulio Kaur MD Rhina is a 75-year-old female with a past medical history of GERD, hypertension, asthma, thoracic radiculopathy, sciatic pain, lumbar radiculopathy, concussion, allergic rhinitis, and anemia who presents with left flank and back pain which began last night and which increased with severe spasms this morning. Rhina reports in the last week she has had to sleep sitting up and couldn't sleep on her L side. Has had similar symptoms in the past due to GERD and a pinched nerve in her neck. Thought it might have similar to these, but woke up and 'an awful pain in my left side in the back and under the shoulder blade.' Woody different from her prior GERD pain, and was in a different place. Pain went down to her waist and shouder. Her pu ta TENS machine on which helped her get some sleep last night, but when she woke up this morning and walk her pain was still there and any motion caused her intense pain. Deep breathing made her pain worse. Had some abdominal pain with unremarkable CT on 05/04. Allergic to garlic, egg yolk, and various foods which 'just don't work for me' which she thought might have caused her pain. Has been drinking more water. Recently had a colonoscopy, upper endoscopy, and neck CT which were all normal as outpt. + Diarrhea periodically if she drinks hot tea. Intermittently constipated which is why she started drinking tea. FHx: Sister passed from breast cancer. Family member with asbestos exposure. Denies other hx cancer. Mammograms up to date and normal. hx of vertigo. Hadpain in te backof the r leg which ached terribly prior to her sx. Long trip to [place] in january ([address], 12 back due to an accident) no traveling since then. Medical History: Reviewed Medications: Reviewed Surgical History: Reviewed Allergies: Reviewed Social History: Denies tobacco, etoh, and rec drug. Code Status: Full Code Allergies Allergy/AdvReac Type Severity Reaction Status Date / Time Sulfa (Sulfonamide Allergy Intermediate LIPS Verified 05/27/21 16:43 Antibiotics) SWELLING amlodipine [From [facility]] Allergy Unknown Unknown Verified 05/27/21 16:43 garlic Allergy Gastrointestinal Verified 05/27/21 16:43 Upset erythromycin base AdvReac Mild DIZZY Verified 05/27/21 16:43 propoxyphene AdvReac Mild DIZZINESS Verified 05/27/21 16:43 Home Medications Medication Instructions Recorded Confirmed Type Lactobacillus acidoph-L.bulgaricus 2 - 3 tab PO TIDM 11/11/18 05/27/21 History 1 million cell chewable tablet (Lactinex) loratadine 10 mg tablet (Claritin) 10 mg PO DAILY PRN 11/11/18 05/27/21 History meclizine 25 mg tablet 25 mg PO TID PRN 11/11/18 05/27/21 History triamcinolone acetonide 55 mcg 1 spray INTRANASAL BID PRN 03/03/19 05/27/21 History nasal spray aerosol albuterol sulfate 90 mcg/actuation 3 puffs INH Q6H PRN #18 gm 01/13/20 05/27/21 Rx aerosol inhaler potassium chloride 10 mEq See Rx Instructions PO TID #180 cap 11/04/20 05/27/21 Rx capsule,extended release metoprolol tartrate 25 mg tablet 25 mg PO BID #180 tab 03/31/21 05/27/21 Rx ondansetron HCl 4 mg tablet 4 mg PO Q8H PRN #90 tab 04/11/21 05/27/21 Rx betamethasone dipropionate 0.05 % 1 applic TOPICAL BID PRN 04/20/21 05/27/21 History topical cream gabapentin 100 mg capsule 200 mg PO HS PRN 04/20/21 05/27/21 History lidocaine 4 % topical patch 1 patch TOPICAL DAILY PRN 04/20/21 05/27/21 History (Lidocaine Pain Relief) telmisartan 80 1 tab PO QAM 04/20/21 05/27/21 History mg-hydrochlorothiazide 25 mg tablet terbinafine HCl 1 % topical cream 1 applic TOPICAL BID #30 g 04/27/21 05/27/21 Rx pantoprazole 40 mg tablet,delayed 40 mg PO DAILY 05/27/21 05/27/21 History release Past Med/Surg History Medical History Abdominal pain Anemia Back problem GERD (gastroesophageal reflux disease) History of depression History of migraine HTN (hypertension) Nausea Radicular pain in right arm Sciatica TMJ (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 joint disorder) 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) Surgical History History of colonoscopy History of D&C History of esophagogastroduodenoscopy (EGD) History of partial hysterectomy History of tonsillectomy Family History Mother Diabetes Alzheimer disease Hypertension Family/Other Diabetes Sister Diabetes Hypertension Brother Hypertension Father Lung cancer Cancer Other No family history of adverse response to anesthesia No family history of bleeding disorder Denies family history of Ovarian cancer Prostate cancer Myocardial infarction Breast cancer Colorectal cancer Social History Smoking Status: Never smoker Second Hand Exposure: Yes; Hx Alcohol Use: No Hx Substance Use: No Preferred Language: Tamazight Communication Ability: Effective Visual Impairment: No Limitations Hearing Ability: Normal Confidential Investigator Required: No Beliefs That Will Affect Care: None marital status: Current Living Situation: Spouse current occupational status: retired 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 NAD. Cooperative. HEENT: Atraumatic, normocephalic. Pupils equal and responsive to light and accommodation. Pulm: Diminished, no overt wheezes rales or rhonchi. Symmetrical chest rise. No increase work of breathing. No respiratory distress. Cardiac: RRR, -mrg. Radial pulses intact and symmetrical. Abdominal: Nontender, nondistended, soft. BS present. Extremities: Warm, dry. Leg circumference equal. No pitting edema of the legs bilaterally. Fine Artist strength, ankle dorsiflexion/plantar flexion intact 5/5 symme trical. Sensation to soft touch and temperature intact in extremities bilaterally. Results & Data Results & Data ([facility]) Vital Signs (Past 12 Hours) Vital Signs Temp Pulse Resp BP Pulse Ox 05/27/21 14:47 36.9 C 102 H 18 160/80 H 90 PG Care Time/CCT Total # of Minutes Spent Total Time Spent with Patient: Total time spent is greater than 50% in coordination of care (as documented) at patient's floor/unit and/or counseling patient: Coding Level of Care Code 77803 Initial Inpt Care Lvl 3 Diagnoses Multiple pulmonary emboli I26.99 GERD (gastroesophageal reflux disease) K21.9 HTN (hypertension) I10 Asthma J45.909 Hypokalemia E87.6
[2021-05-27] MEDS ORDERED: HEPARIN SOD (PORCINE) 1000 UNIT/ML IV ONE (17:45)
[2021-05-27] MEDS: HEPARIN SODIUM/DEXTROSE 25,000 UNITS/500 ML BAG IV SCH (18:16)
[2021-05-27] MEDS ORDERED: ACETAMINOPHEN 325 MG TAB ONE (21:07)
[2021-05-27] MEDS ORDERED: HYDROmorphone INJ 0.5 MG/0.5 ML SYR ONE (21:57)
[2021-05-27] MEDS ORDERED: ACETAMINOPHEN 325 MG TAB PO PRN (22:02)
[2021-05-27] MEDS ORDERED: HYDROmorphone INJ 0.5 MG/0.5 ML SYR IV PRN (22:02)
[2021-05-27] MEDS ORDERED: FAMOTIDINE 20 MG TAB PO PRN (22:06)
[2021-05-27] MEDS ORDERED: PANTOprazole 40 MG TAB ONE (22:07)
[2021-05-27] MEDS: HYDROmorphone INJ 0.5 MG/0.5 ML SYR IV PRN (22:10)
[2021-05-27] MEDS: PANTOprazole 40 MG TAB PO SCH (22:10)
[2021-05-27] MEDS: METOPROLOL TARTRATE 25 MG TAB PO SCH (23:16)
[2021-05-28] MEDS: SODIUM CHLORIDE 0.9% 1000ML 1,000 ML IV SCH ×2 (00:17→07:55)
[2021-05-28 00:49] LABS: Partial Thromboplastin Ratio 3.2
[2021-05-28 01:04] LABS: Partial Thromboplastin Time 84.8 Seconds (21.0-31.0)
[2021-05-28] MEDS: HYDROmorphone INJ 0.5 MG/0.5 ML SYR IV PRN ×2 (03:55→08:12)
--- NOTE | 2021-05-28 07:51 | Electrocardiogram Report ---
Test Reason : Blood Pressure : / mmHG Vent. Rate : 074 BPM Atrial Rate : 074 BPM P-R Int : 174 ms QRS Dur : 074 ms QT Int : 372 ms P-R-T Axes : 045 011 022 degrees QTc Int : 412 ms Normal sinus rhythm Normal ECG When compared with ECG of 11-NOV-2019 20:47, No significant change was found Confirmed by Gilbert Huitron ([id number]) on 05/28/2021 7:50:55 AM Referred By: REFERRED SELF Confirmed By:Michele Huitron
--- NOTE | 2021-05-28 07:55 | Electrocardiogram Report ---
Test Reason : Blood Pressure : / mmHG Vent. Rate : 087 BPM Atrial Rate : 087 BPM P-R Int : 176 ms QRS Dur : 080 ms QT Int : 370 ms P-R-T Axes : 054 018 024 degrees QTc Int : 445 ms Normal sinus rhythm Normal ECG When compared with ECG of 27-MAY-2021 15:45, (unconfirmed) No significant change was found Confirmed by Gilbert Huitron ([id number]) on 05/28/2021 7:55:16 AM Referred By: REFERRED SELF Confirmed By:Michele Huitron
[2021-05-28 08:50] LABS: INR 1.1 (0.9-1.1); Partial Thromboplastin Ratio 1.9; Prothrombin Time 10.9 Seconds (9.0-12.0)
[2021-05-28 08:56] LABS: Partial Thromboplastin Time 50.1 Seconds (21.0-31.0)
[2021-05-28] MEDS ORDERED: PANTOprazole 40 MG TAB PO SCH (09:00)
[2021-05-28] MEDS: METOPROLOL TARTRATE 25 MG TAB PO SCH ×2 (10:12→22:23)
[2021-05-28] MEDS: PANTOprazole 40 MG TAB PO SCH ×2 (10:13→22:23)
[2021-05-28 10:49] LABS: Appearance Urine Clear (Clear); Bilirubin Urine Negative (Negative); Blood Urine Negative (Negative); Color Urine Yellow; Glucose Urine UA Negative (Negative); Ketones Urine Trace (Negative); Leukocyte Esterase Urine Negative (Negative); Nitrite Urine Negative (Negative); Protein Urine Negative (Negative); Urobilinogen Urine Negative (Negative); pH Urine 6.5 (4.5-7.5)
--- NOTE | 2021-05-28 11:00 | XCELERA ---
[id number]
[2021-05-28] MEDS: hydroCHLOROthiazide 25 MG TAB PO SCH (11:22)
[2021-05-28] MEDS: TELMISARTAN 40 MG TAB PO SCH (11:22)
[2021-05-28] MEDS: POTASSIUM CHLORIDE CRTAB 20 MEQ TABCR PO SCH ×3 (11:24→22:03)
[2021-05-28] MEDS: ACETAMINOPHEN 325 MG TAB PO SCH ×2 (13:28→20:14)
--- NOTE | 2021-05-28 13:58 | Hospitalist Progress Note ---
Date of Service May 28, 2021 Assessment & Plan (1) Multiple pulmonary emboli: Plan: Rhina is a 75-year-old female who presents with chest pain worsened with inspiration and she was found to have multiple unprovoked bilateral segmental and subsegmental pulmonary emboli on CTA. Unprovoked bilateral chronic PE -Known FMH of clotting disorders: older brother who in his 40s, niece -Outpatient cancer workup negative for colon and breast cancer, CTAP negative for potential malignancy -Neg troponins, EKG neg, normal TTE -CTA- multiple b/l segmental and subsegmental PE -Abdominal pain likely due to diaphragmatic irritation. UA ne, no urinary symptoms and no CVA tenderness on exam -Heparin bolus and drip initiated in ED, APTT approximately 2x of normal as expected -Hemodynamically stable with good O2 saturation on 2L NC, will try to wean to RA today -Will start DOAC (Xarelto vs Eliquis depending on cost and coverage) at 10:00 PM tonight, discontinue heparin and d/c pt in AM tomorrow on indefinite DOAC therapy (2) GERD (gastroesophageal reflux disease): Plan: Protonix 40 mg twice daily (3) HTN (hypertension): Plan: Continue telmisartanhydrochlorothiazide Continue metoprolol 25 mg tartrate twice daily (4) Asthma: Plan: Albuterol as needed (5) Hypokalemia: Plan: Hypokalemia - K 3.4 on admission - Pt refused medication due to complaint of KCl tabs giving her esophagitis - Will likely resolve with nutrition Admission and Anticipated Discharge Date Admission Date: May 27, 2021 Supervising Physician Co-Signing Physician Notes I personally examined the patient and verified all saleh points of history and exam, discussed case, and agree with decision making with Dr Pitt. On and off sharp and stabbing chest pain lower chest upper abdomenworse with coughing belching or rapid movement. May be a little bit better than yesterday but has not changed much. Also notes gas, bloating, upper GI distressshe notes this is fairly chronic and has to carefully watch her diet in this respect. Extensive discussion with patient, outlining her current symptoms and how they relate to our diagnoses, as well as the typical pathophysiology of venous thromboembolic disease, common myths/misconceptions about venous thromboembolic disease, and the overall plan of treatment. Vitals noted, in general she is awake and alert pleasant no distress. HEENT normocephalic atraumatic mucous membranes moist. Breathing unlabored no accessory muscle use good effort. Skin shows no rashes no pallor or icterus. Neuro without focal deficits. Pulmonary embolipain is largely pleuritic from the PEs. She does appear to have chronic GI distressbut this does not seem to be anything new, more likely just amplified from the physiologic stress from the PEs. Anticoagulated on heparinanticipate transition to DOACasked case management to try to olivier check for cost considerations. If antiphospholipid's come back positive, then would need to consider a change from DOAC to Coumadin, but this is not very likely. Given that she has had essentially unprovoked clots, would anticipate full dosing of DOAC for 3 to 6 months, but some degree of suppressive dosing likely indefinitely. Wean oxygen, home once off oxygen and pain under better control. Otherwise as above. Subjective Pt still reporting significant pleuritic L-sided flank and abdominal pain but it does respond to pain medication. Not currently reporting any dyspnea or chest pain. States she feels unwell but not in any acute distress. Review of Systems Review of Systems: L sided flank and abdominal pain Physical Exam Physical Exam: General: Well-appearing woman in no acute distress HEENT: Moist mucous membranes, EOMI CV: RRR, normal S1 and S2 Resp: Slightly diminished lung sounds bilaterally without crackles or wheezes, no accessory muscle use. Abdominal: Mild tenderness of L flank, soft, nondistended, no guarding or rebound, no CVA tenderness Extremities: Warm and dry without edema, warmth or redness Results & Data Results & Data ([facility]) Vital Signs (Past 12 Hours) Vital Signs Temp Pulse Pulse Resp BP BP Pulse Ox 05/28/21 10:00 81 13 166/89 H 99 05/28/21 09:00 82 14 170/83 H 100 05/28/21 08:00 88 24 177/79 H 93 05/28/21 07:00 84 23 188/99 H 100 05/28/21 06:15 36.7 C 93 H 20 169/72 H 68 L 05/28/21 06:00 86 13 169/72 H 100 05/28/21 05:00 82 14 171/81 H 100 10/31/21 04:46 88 L 05/28/21 04:15 86 21 168/74 H 92 05/28/21 04:00 97 H 24 168/74 H 93 05/28/21 03:00 80 16 92 05/28/21 02:00 73 21 93 Resident Activity Tracking Resident Involvement: Resident Care Provided Care Provided: Adult Hospital Medicine
[2021-05-28 14:21] LABS: Partial Thromboplastin Ratio 1.7; Partial Thromboplastin Time 43.5 Seconds (21.0-31.0)
--- NOTE | 2021-05-28 16:16 | Billing Data ---
Date of Service May 28, 2021 Coding Level of Care Code 45968 Subseq Hosp Care Lvl 3
[2021-05-28] MEDS: KETOROLAC TROMETHAMINE 15 MG/ML VIAL IV PRN ×2 (16:42→23:07)
[2021-05-28 18:27] LABS: Partial Thromboplastin Ratio 1.7; Partial Thromboplastin Time 43.7 Seconds (21.0-31.0)
[2021-05-28] MEDS: APIXABAN 5 MG TABLET PO SCH (22:03)
[2021-05-28] MEDS: HEPARIN SODIUM/DEXTROSE 25,000 UNITS/500 ML BAG IV SCH (22:10)
[2021-05-29] MEDS: ACETAMINOPHEN 325 MG TAB PO SCH (03:26)
[2021-05-29 06:31] LABS: Basophils # (auto) 0.01 K/uL (0-0.2); Basophils % (auto) 0.1 %; Eosinophils # (auto) 0.09 K/uL (0-0.5); Eosinophils % (auto) 1.3 %; Hematocrit (blood only) 30.1 % (37-47); Immature Granulocytes # (auto) 0.02 K/uL (0.00-0.02); Immature Granulocytes % (auto) 0.3 %; Lymphocytes # (auto) 1.14 K/uL (1.2-3.4); Lymphocytes % (auto) 16.7 %; Mean Corpuscular Hemoglobin 30.8 pg (25-34); Mean Corpuscular Hgb Conc 33.2 g/dL (32-36); Mean Corpuscular Volume 92.6 fL (80-100); Mean Platelet Volume 10.1 fL (7.4-10.4); Monocytes # (auto) 0.69 K/uL (0.11-0.59); Monocytes % (auto) 10.1 %; Neutrophils # (auto) 4.87 K/uL (1.4-6.5); Neutrophils % (auto) 71.5 %; Platelet Count 199 K/uL (130-400); RDW Coefficient of Variation 12.7 % (11.5-14.5); RDW Standard Deviation 43.7 fL (36.4-46.3); Red Blood Count 3.25 M/uL (4.2-5.4); White Blood Count 6.82 K/uL (4.8-10.8)
[2021-05-29 07:02] LABS: Calcium 9.2 mg/dl (8.5-10.1); Creatinine Clr Calc Pharmacy 69.6 ml/min; Est GFR (African American) 88.9 ml/min; Est GFR (Non-African American) 76.7 ml/min; Magnesium 2.1 mg/dl (1.8-2.4); Potassium 3.1 mmol/L (3.5-5.1)
[2021-05-29] MEDS ORDERED: POTASSIUM CHLORIDE CRTAB 20 MEQ TABCR PO STA (07:12)
[2021-05-29] MEDS: METOPROLOL TARTRATE 25 MG TAB PO SCH (08:27)
[2021-05-29] MEDS: PANTOprazole 40 MG TAB PO SCH (08:27)
[2021-05-29] MEDS: hydroCHLOROthiazide 25 MG TAB PO SCH (08:28)
[2021-05-29] MEDS: POTASSIUM CHLORIDE CRTAB 20 MEQ TABCR PO SCH (08:28)
[2021-05-29] MEDS: TELMISARTAN 40 MG TAB PO SCH (08:28)
[2021-05-29] MEDS: APIXABAN 5 MG TABLET PO SCH (08:29)
--- NOTE | 2021-05-29 13:27 | Discharge Summary ---
Date of Service May 29, 2021 Admission HPI Per Admitting Provider Rhina is a 75-year-old female with a past medical history of GERD, hypertension, asthma, thoracic radiculopathy, sciatic pain, lumbar radiculopathy, concussion, allergic rhinitis, and anemia who presents with left flank and back pain which began last night and which increased with severe spasms this morning. Rhina reports in the last week she has had to sleep sitting up and couldn't sleep on her L side. Has had similar symptoms in the past due to GERD and a pinched nerve in her neck. Thought it might have similar to these, but woke up and 'an awful pain in my left side in the back and under the shoulder blade.' [place] different from her prior GERD pain, and was in a different place. Pain went down to her waist and shouder. Her pu ta TENS machine on which helped her get some sleep last night, but when she woke up this morning and walk her pain was still there and any motion caused her intense pain. Deep breathing made her pain worse. Had some abdominal pain with unremarkable CT on 05/04. Allergic to garlic, egg yolk, and various foods which 'just don't work for me' which she thought might have caused her pain. Has been drinking more water. Recently had a colonoscopy, upper endoscopy, and neck CT which were all normal as outpt. + Diarrhea periodically if she drinks hot tea. Intermittently constipated which is why she started drinking tea. FHx: Sister passed from breast cancer. Family member with asbestos exposure. Denies other hx cancer. Mammograms up to date and normal. hx of vertigo. Hadpain in te backof the r leg which ached terribly prior to her sx. Long trip to [place] in january ([address], 12 back due to an accident) no traveling since then. Medical History: Reviewed Medications: Reviewed Surgical History: Reviewed Allergies: Reviewed Social History: Denies tobacco, etoh, and rec drug. Code Status: Full Code Admission Exam Per Admitting Provider General: A&Ox3. NAD. Cooperative. HEENT: Atraumatic, normocephalic. Pupils equal and responsive to light and accommodation. Pulm: Diminished, no overt wheezes rales or rhonchi. Symmetrical chest rise. No increase work of breathing. No respiratory distress. Cardiac: RRR, -mrg. Radial pulses intact and symmetrical. Abdominal: Nontender, nondistended, soft. BS present. Extremities: Warm, dry. Leg circumference equal. No pitting edema of the legs bilaterally. Policy Cancellation Clerk strength, ankle dorsiflexion/plantar flexion intact 5/5 symmetrical. Sensation to soft touch and temperature intact in extremities bilaterally. Principal Diagnosis Pulmonary embolism Discharge Exam General: Well-appearing woman in no acute distress HEENT: Moist mucous membranes, EOMI CV: RRR, normal S1 and S2 Resp: Largely clear lung sounds bilaterally without crackles or wheezes, no accessory muscle use Discharge Data Allergies Allergy/AdvReac Type Severity Reaction Status Date / Time Sulfa (Sulfonamide Allergy Intermediate LIPS Verified 05/27/21 16:43 Antibiotics) SWELLING amlodipine [From [facility]] Allergy Unknown Unknown Verified 05/27/21 16:43 garlic Allergy Gastrointestinal Verified 05/27/21 16:43 Upset erythromycin base AdvReac Mild DIZZY Verified 05/27/21 16:43 propoxyphene AdvReac Mild DIZZINESS Verified 05/27/21 16:43 Consultations 05/27/21 20:53 Consult Hospitalist Stat Ordered Studies 05/27/21 15:22 CT angio abdomen pelvis w con Stat CT angio chest dissec wo/w con Stat Hospital Course (1) Multiple pulmonary emboli: Rhina is a 75-year-old female who presents with chest pain worsened with inspiration and she was found to have multiple unprovoked bilateral segmental and subsegmental pulmonary emboli on CTA. Hospitalized 05/27 and discharged on 05/29. Unprovoked bilateral chronic PE -Known FMH of clotting disorders: older brother who in his 40s, niece -Outpatient cancer workup negative for colon and breast cancer, CTAP negative for potential malignancy -Neg troponins, EKG neg, normal TTE -CTA- multiple b/l segmental and subsegmental PE -L flank pain likely due to diaphragmatic irritation, still not fully resolved by day of discharge but improving. UA neg, no urinary symptoms and no CVA tenderness on exam -Heparin bolus and drip initiated in ED, discontinued last night 05/28 with initiation of Eliquis 10 mg -Hemodynamically stable with good O2 saturation, successfully weaned to RA today -Discharged home on Eliquis 10 mg BID for 7 days, then 5 mg BID to be continued indefinitely given age and unprovoked PE Hypercoagulability studies still pending, including Factor 5 Leiden, antiphospholipids, etc -If positive, will need to switch from Eliquis to Warfarin (2) GERD (gastroesophageal reflux disease): Continued Protonix 40 mg twice daily (3) HTN (hypertension): Continued telmisartanhydrochlorothiazide and metoprolol during stay -BPs elevated but without symptoms concerning for end-organ damage, were most likely due to sympathetic response from pain (4) Asthma: -Did not experience any acute respiratory distress during hospitalization (5) Hypokalemia: Hypokalemia - K 3.4 on admission, 3.1 on day of discharge - KCl 40 meq PO given on day of discharge Total Time Total Time Spent Total Time Spent (In Minutes): 10 Discharge Plan Discharge Items Patient Disposition: Home - Self-Care Reason For Visit: L SIDE ABD SHOULDER LEG Discharge Diagnosis: Pulmonary embolism Condition on Discharge: Good Activity: Per Instructions section Non-emergency contact: Primary Care Provider Call non-emergency contact if: you have any medication questions, your symptoms worsen, your pain is not controlled and your pain is worsening Follow-up/Referrals: Braulio Kaur MD [Primary Care Provider] - 06/06/21 2:00 pm (APPT WITH DEMARIO HERNANDEZ) Diet: Regular Addtl Attending Provider Instructions: You were admitted to the hospital for flank pain later discovered via CT scan to be due to pulmonary embolisms, which are blood clots in your lungs. You were treated with heparin to thin the blood and prevent further clotting, and the heparin was later discontinued to start Eliquis, which will be a lifelong medication. You were also given oxygen to keep your oxygen levels up. Although you're still experiencing some pain, it is reassuring that it isn't chest pain accompanied by shortness of breath. The pain is likely due to your diaphragm being irritated by the clotted lungs. This will improve as you remain on the Eliquis going forward. Eliquis is an anticoagulation medication that will reduce your risk of future blood clots. We are unsure how you developed multiple clots, but performed some lab studies to determine if you have a form of genetic clotting disorder. These results aren't back yet but will be communicated to your PCP Dr. Kaur. A discharge summary will be sent to your primary care physician to ensure continuity of care. Please bring this discharge summary with you to your next office appointment so that your provider can review it at that time. Follow-up appointments: Make a follow-up appointment with your PCP within the next week. It is very important that you follow up with them shortly after discharge from the hospital.] Medications: Your medication list has been reviewed and reconciled upon discharge to ensure accuracy and continuity of care. An updated list of all your medications is included with your hospital discharge paperwork. Please review this list closely, and make note of any changes. We sent a new medication called Eliquis to the pharmacy For the next 7 days- take Eliquis 10 mg at morning and 10 mg at night (this will be two 5 mg tablets at morning and again at night so 4 tablets total per day) After 7 days- take Eliquis 5 mg at morning and 5 mg at night (2 tablets total per day). You will continue this regimen for the rest of your hopefully long and fruitful life. Take your medications as instructed; do not skip a dose of your medicines. Make sure all of your doctors know every medicine you are taking (including wbwx-wdn-mtmghir medicines, vitamins, and supplements). Call your primary care provider before taking any new me dicines (including uaji-jzp-ltxydyu medicines, vitamins, and supplements), because some of these may interact with your current medications, or may make your symptoms worse. Tell your primary care provider if you cannot afford your medications. CONTACT YOUR PRIMARY CARE PROVIDER if you experience any of the following: Chest pain Shortness of brain Severe flank pain Worsened coughing Difficulty following your treatment plan, or difficulty taking medications CALL 911 OR GO TO THE EMERGENCY DEPARTMENT if you experience any of the following: Sudden, severe abdominal pain or nausea/vomiting Severe chest pain, or chest pain that radiates (moves) to your jaw or arm Sudden, severe shortness of breath or difficulty breathing Thank you for allowing us to participate in your care. Pending Studies at Discharge: Yes Studies:: Hypercoagulability studies (Factor 5 Leiden, Beta-2 GPI Ab) Stand-Alone Forms: My [employer], Smoking Cessation Medications and DC Order Prescriptions: New Eliquis 5 mg tablet 5 mg PO BID 30 Days Qty: 60 RF: 6 Continued albuterol sulfate 90 mcg/actuation HFA aerosol inhaler 3 puffs INH Q6H PRN (Reason: shortness of breath or wheezing) Qty: 18 RF: 1 metoprolol tartrate 25 mg tablet 25 mg PO BID Qty: 180 RF: 3 potassium chloride 10 mEq capsule, extended release See Rx Instructions PO TID Qty: 180 RF: 5 ondansetron HCl 4 mg tablet 4 mg PO Q8H PRN (Reason: nausea and vomiting) Qty: 90 RF: 3 terbinafine HCl 1 % cream 1 applic topical BID Qty: 30 RF: 0 meclizine 25 mg Tablet 25 mg PO TID PRN (Reason: Vertigo) RF: 0 loratadine [Claritin] 10 mg Tablet 10 mg PO DAILY PRN (Reason: allergies) RF: 0 Lactinex 1 million cell Tablet,Chewable 2 - 3 tab PO TIDM RF: 0 triamcinolone acetonide 55 mcg aerosol,spray 1 spray INTRANASAL BID PRN (Reason: Congestion) RF: 0 betamethasone dipropionate 0.05 % cream 1 applic topical BID PRN (Reason: ud) RF: 0 gabapentin 100 mg capsule 200 mg PO HS PRN (Reason: Pain) RF: 0 telmisartan-hydrochlorothiazid 80-25 mg tablet 1 tab PO QAM RF: 0 lidocaine [Lidocaine Pain Relief] 4 % Adhesive Patch,Medicated 1 patch TOPICAL DAILY PRN (Reason: Pain) RF: 0 pantoprazole 40 mg tablet,delayed release (DR/EC) 40 mg PO DAILY RF: 0 Discharge Orders: Discharge Order (Routine); Ordered 05/29/21 Ordered By: Gloria Pitt Admission Data Admit Date/Time: 05/27/21 18:24 Attending Provider: Isiah Lomeli Admit Provider: Santiago Mayfield Primary Care Provider: Braulio Kaur Other Providers: Santiago Mayfield Other Interventions: Discharge Summary Assessment (RN) Last Done: 05/29/21 11:41 Resident Activity Tracking Resident Involvement: Resident Care Provided Care Provided: Adult Hospital Medicine
[2021-06-02 05:30] LABS: B2 Glycoprotein IgA <2.0 U/mL (<20.0); B2 Glycoprotein IgG <2.0 U/mL (<20.0); B2 Glycoprotein IgM <2.0 U/mL (<20.0); Phosphatidylserine IgG <10 U/mL (<10); Phosphatidylserine IgM <25 U/mL (<25)
[2021-06-02 16:26] LABS: Factor 5 Mutation NEGATIVE
== END 2021-05-29 12:38 | disposition home or self-care (01) | DRG 176 ==
LOC: ED 14:43 → SUATTDRO 18:24 → EDINP 18:24 → 3N 22:01

== ENCOUNTER 2021-06-17 12:53 | Observation (INO) ==
[2021-06-17] MEDS ORDERED: ASPIRIN CHEW 324 MG PO STA (13:18)
[2021-06-17] MEDS ORDERED: NITROGLYCERIN SL 0.4 MG/TAB TAB SL STA (13:18)
--- NOTE | 2021-06-17 13:22 | XRay Report ---
XR chest 1V portable CLINICAL HISTORY: Atypical chest pain TECHNIQUE: Single frontal radiograph of the chest was obtained. Comparison: Comparison is made to chest one view 11/11/2019 FINDINGS: No lines and tubes are seen. The cardiomediastinal silhouette is normal. The lungs are clear. No evid ence of pleural effusion or pneumothorax. IMPRESSION: No acute chest disease. ACT 112: Negative or not required by law. Electronically signed by: Abhijeet Fraga M.D. 06/17/2021 1:21 PM
[2021-06-17] MEDS: SODIUM CHLORIDE 0.9% 1000ML 1,000 ML IV SCH ×2 (13:53→22:44)
[2021-06-17 14:14] LABS: Basophils # (auto) 0.01 K/uL (0-0.2); Basophils % (auto) 0.3 %; Eosinophils # (auto) 0.08 K/uL (0-0.5); Eosinophils % (auto) 2.1 %; Hemoglobin 10.6 g/dL (12.0-16.0); Lymphocytes # (auto) 1.25 K/uL (1.2-3.4); Lymphocytes % (auto) 33.4 %; Mean Corpuscular Hemoglobin 30.1 pg (25-34); Mean Corpuscular Hgb Conc 32.1 g/dL (32-36); Mean Corpuscular Volume 93.8 fL (80-100); Mean Platelet Volume 10.2 fL (7.4-10.4); Monocytes # (auto) 0.21 K/uL (0.11-0.59); Monocytes % (auto) 5.6 %; Neutrophils # (auto) 2.19 K/uL (1.4-6.5); Neutrophils % (auto) 58.6 %; Platelet Count 245 K/uL (130-400); RDW Coefficient of Variation 13.4 % (11.5-14.5); RDW Standard Deviation 45.7 fL (36.4-46.3); Red Blood Count 3.52 M/uL (4.2-5.4); White Blood Count 3.74 K/uL (4.8-10.8)
[2021-06-17 14:40] LABS: BUN Creatinine Ratio 12.1 (10-20); Blood Urea Nitrogen 9 mg/dl (7-18); Calcium 9.2 mg/dl (8.5-10.1); Carbon Dioxide 24 mmol/L (21-32); Chloride 108 mmol/L (98-107); Est GFR (African American) 87.5 ml/min; Est GFR (Non-African American) 75.5 ml/min; Glucose 86 mg/dl (70-99); Sodium 141 mmol/L (136-145)
[2021-06-17 14:44] LABS: Troponin I < 0.015 ng/ml (0-0.045)
--- NOTE | 2021-06-17 15:57 | History & Physical Report ---
Date of Service June 17, 2021 Assessment & Plan (1) Chest pain: Plan: Patient presents chest discomfort. Recently diagnosed with pulmonary believes and is on May 27, 2021. She has been anticoagulated with Eliquis. On that hospital stay she had an echocardiogram which did not show regional wall motion abnormalities.. Patient is initial troponins unremarkable. Patient was given aspirin in the emergency department. She typically does not take an aspirin or statin pain is reproducible below left breast, no skin changes to concern for zoster (2) Multiple pulmonary emboli: Plan: Patient remains full anticoagulate with Eliquis (3) GERD (gastroesophageal reflux disease): Plan: Protonix continues on once a day (4) HTN (hypertension): Plan: Patient is on metoprolol tartrate 25 twice daily History of Present Illness Primary Care Provider: Braulio Kaur MD Patient is 4 days prior to presentation had a history of sharp stabbing reproducible left pain below her breast seemingly at the junction of her rib and sternum. She denies any nausea diaphoresis reproducibility other than with position and pressure has had no coughing. On her last admission for pulmonary embolism May 27 an echocardiogram was performed showing a preserved ejection fraction mild elevation of right heart pressures. No RV strain was noted. In the ER she had normal EKG negative troponin normal serologies normal chest x- ray and no skin changes consistent with any type of skin lesion. She is recommended for observation for chest pain Allergies Allergy/AdvReac Type Severity Reaction Status Date / Time Sulfa (Sulfonamide Allergy Intermediate LIPS Verified 06/17/21 14:41 Antibiotics) SWELLING amlodipine [From [facility]] Allergy Unknown Unknown Verified 06/17/21 14:41 garlic Allergy Gastrointestinal Verified 06/17/21 14:41 Upset erythromycin base AdvReac Mild DIZZY Verified 06/17/21 14:41 propoxyphene AdvReac Mild DIZZINESS Verified 06/17/21 14:41 Home Medications Medication Instructions Recorded Confirmed Type Lactobacillus acidoph-L.bulgaricus 2 - 3 tab PO TIDM 11/11/18 06/17/21 History 1 million cell chewable tablet (Lactinex) loratadine 10 mg tablet (Claritin) 10 mg PO DAILY PRN 11/11/18 06/17/21 History meclizine 25 mg tablet 25 mg PO TID PRN 11/11/18 06/17/21 History albuterol sulfate 90 mcg/actuation 3 puffs INH Q6H PRN #18 gm 01/13/20 06/17/21 Rx aerosol inhaler metoprolol tartrate 25 mg tablet 25 mg PO BID #180 tab 03/31/21 06/17/21 Rx ondansetron HCl 4 mg tablet 4 mg PO Q8H PRN #90 tab 04/11/21 06/17/21 Rx gabapentin 100 mg capsule 200 mg PO HS PRN 04/20/21 06/17/21 History lidocaine 4 % topical patch 1 patch TOPICAL DAILY PRN 04/20/21 06/17/21 History (Lidocaine Pain Relief) telmisartan 80 1 tab PO QAM 04/20/21 06/17/21 History mg-hydrochlorothiazide 25 mg tablet pantoprazole 40 mg tablet,delayed 40 mg PO BID 05/27/21 06/17/21 History release apixaban 5 mg tablet (Eliquis) 5 mg PO BID 30 Days #60 tab 05/29/21 06/17/21 Rx aluminum hydrox-magnesium carb 95 15 ml PO PCHS PRN 06/17/21 06/17/21 History mg-358 mg/15 mL oral suspension (Gaviscon) ascorbic acid (vitamin C) 1,000 mg 0 mg PO QDL 06/17/21 06/17/21 History tablet (Vitamin C) cholecalciferol (vitamin D3) 25 0 mcg PO QDL 06/17/21 06/17/21 History mcg (1,000 unit) capsule (Vitamin D3) wpgclyytovxa-Rv-tooi-minerals 18 1 tab PO QDL 06/17/21 06/17/21 History mg-0.4 mg tablet potassium chloride 10 mEq 30 meq PO BID 06/17/21 06/17/21 History capsule,extended release terbinafine HCl 1 % topical cream 1 applic TOPICAL BID PRN 06/17/21 06/17/21 History Past Med/Surg History Medical History Abdominal pain Anemia Back problem GERD (gastroesophageal reflux disease) History of depression History of migraine HTN (hypertension) Nausea Radicular pain in right arm Sciatica TMJ (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 joint disorder) Surgical History History of colonoscopy History of D&C History of esophagogastroduodenoscopy (EGD) History of partial hysterectomy History of tonsillectomy Family History Mother Diabetes Alzheimer disease Hypertension Family/Other Diabetes Sister Diabetes Hypertension Brother Hypertension Father Lung cancer Cancer Other No family history of adverse response to anesthesia No family history of bleeding disorder Denies family history of Ovarian cancer Prostate cancer Myocardial infarction Breast cancer Colorectal cancer Social History Smoking Status: Never smoker Second Hand Exposure: Yes; Hx Alcohol Use: No Hx Substance Use: No Preferred Language: Kiswahili Communication Ability: Effective Visual Impairment: No Limitations Hearing Ability: Normal Legal Clerk Required: No Beliefs That Will Affect Care: None marital status: Current Living Situation: Spouse current occupational status: retired 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 Feels Safe at Home: Yes Childhood Exposure to Second-Hand Smoke: Yes Dental Care, Regularly: Yes Physical Activity Frequency: 5-6 Times per Week Seatbelt Use: always Sunscreen Use: No Assistive Devices: None Review of Systems Review of Systems: Mild distress and fatigue no headache, no visual changes no speech or swallowing issues no chest pain, pressure or palpitations no shortness of breath, cough or wheezes no abdominal pain, nausea or vomiting, diarrhea or constipation no dysuria, hematuria or frequency no focal joint pain or swelling no back pain, CVA tenderness or radicular pain no bruising, bleeding or rashes no focal signs of weakness or numbness or altered sensation no complaints of anxiety or depression.. Physical Exam Physical Exam: The patient appeared well nourished and normally developed. Vital signs as documented. Head exam is normocephalic atraumatic Neck is without JVD, thyromegaly, or carotid bruits. Lungs are clear to auscultation, no focal loss of breath sounds Cardiac exam, Rhythm is regular.. No murmurs, rubs or gallops. reproducible pain Abdominal exam reveals normal bowel sounds, soft non tender, no masses Extremities are nonedematous and both pedal pulses are present Neurologic exam is alert and oriented, no focal loss of strength or sensation Skin is without bruises or rashes Psychologically is without concerns for anxiety or depression.. Results & Data Results & Data ([facility]) Vital Signs (Past 12 Hours) Vital Signs Temp Pulse Resp BP BP Pulse Ox 06/17/21 14:37 69 20 97 06/17/21 14:36 97 06/17/21 14:30 69 16 171/86 H 97 06/17/21 14:10 18 155/80 H 97 06/17/21 12:59 98.6 F 81 16 189/93 H 99 Diagnostic Findings Chest x-ray 06/17/2021 no acute changes ECG Additional Comments: Normal sinus rhythm on admission no acute changes PG Care Time/CCT Total # of Minutes Spent Total Time Spent with Patient: Total time spent is greater than 50% in coordination of care (as documented) at patient's floor/unit and/or counseling patient: Coding Level of Care Code INT OBSERVATION CARE 50M LVL 2 Diagnoses Multiple pulmonary emboli I26.99 GERD (gastroesophageal reflux disease) K21.9 HTN (hypertension) I10 Chest pain R07.9
--- NOTE | 2021-06-17 16:40 | Emergency Department Note ---
History of Present Illness General Chief Complaint: Chest Pain Stated Complaint: CHEST/HEART PAIN HAD LUNG DVT T-21 DAYS AGO Time Seen by Provider: 06/17/21 13:05 History of Present Illness Provider Complaint: chest pain Onset (ago): day(s) 3 Duration: constant Onset: during rest Pain Location: left chest Pain Radiation: back Severity: moderate Maximum Pain Intensity: 8 Current Pain Intensity: 8 Quality: + aching and + sharp Relieved By: + nothing Exacerbated By: + nothing Context: + history of DVT/PE (Recently diagnosed on Eliquis); no recent illness, no recent surgery, no recent immobilization, no recent travel, no trauma/injury or no new medications Associated symptoms: no nausea, no vomiting, no diaphoresis, no dyspnea, no syncope, no palpitations, no fever, no cough or no leg swelling Home Medications Medication Instructions Recorded Confirmed Type Lactobacillus acidoph-L.bulgaricus 2 - 3 tab PO TIDM 11/11/18 06/17/21 History 1 million cell chewable tablet (Lactinex) loratadine 10 mg tablet (Claritin) 10 mg PO DAILY PRN 11/11/18 06/17/21 History meclizine 25 mg tablet 25 mg PO TID PRN 11/11/18 06/17/21 History albuterol sulfate 90 mcg/actuation 3 puffs INH Q6H PRN #18 gm 01/13/20 06/17/21 Rx aerosol inhaler metoprolol tartrate 25 mg tablet 25 mg PO BID #180 tab 03/31/21 06/17/21 Rx ondansetron HCl 4 mg tablet 4 mg PO Q8H PRN #90 tab 04/11/21 06/17/21 Rx gabapentin 100 mg capsule 200 mg PO HS PRN 04/20/21 06/17/21 History lidocaine 4 % topical patch 1 patch TOPICAL DAILY PRN 04/20/21 06/17/21 History (Lidocaine Pain Relief) telmisartan 80 1 tab PO QAM 04/20/21 06/17/21 History mg-hydrochlorothiazide 25 mg tablet pantoprazole 40 mg tablet,delayed 40 mg PO BID 05/27/21 06/17/21 History release apixaban 5 mg tablet (Eliquis) 5 mg PO BID 30 Days #60 tab 05/29/21 06/17/21 Rx aluminum hydrox-magnesium carb 95 15 ml PO PCHS PRN 06/17/21 06/17/21 History mg-358 mg/15 mL oral suspension (Gaviscon) ascorbic acid (vitamin C) 1,000 mg 0 mg PO QDL 06/17/21 06/17/21 History tablet (Vitamin C) cholecalciferol (vitamin D3) 25 0 mcg PO QDL 06/17/21 06/17/21 History mcg (1,000 unit) capsule (Vitamin D3) sohyhgfggoqj-Bi-xpgl-minerals 18 1 tab PO QDL 06/17/21 06/17/21 History mg-0.4 mg tablet potassium chloride 10 mEq 30 meq PO BID 06/17/21 06/17/21 History capsule,extended release terbinafine HCl 1 % topical cream 1 applic TOPICAL BID PRN 06/17/21 06/17/21 History Allergies Allergy/AdvReac Type Severity Reaction Status Date / Time Sulfa (Sulfonamide Allergy Intermediate LIPS Verified 06/17/21 14:41 Antibiotics) SWELLING amlodipine [From [facility]] Allergy Unknown Unknown Verified 06/17/21 14:41 garlic Allergy Gastrointestinal Verified 06/17/21 14:41 Upset erythromycin base AdvReac Mild DIZZY Verified 06/17/21 14:41 propoxyphene AdvReac Mild DIZZINESS Verified 06/17/21 14:41 Past Med/Surg History Medical History Abdominal pain Anemia Back problem GERD (gastroesophageal reflux disease) History of depression History of migraine HTN (hypertension) Nausea Radicular pain in right arm Sciatica TMJ (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 joint disorder) pillowcase folder prn (hx tmj locking) Surgical History History of colonoscopy History of D&C History of esophagogastroduodenoscopy (EGD) History of partial hysterectomy History of tonsillectomy Family History Mother Diabetes Alzheimer disease Hypertension Family/Other Diabetes Sister Diabetes Hypertension Brother Hypertension Father Lung cancer Cancer Other No family history of adverse response to anesthesia No family history of bleeding disorder Denies family history of Ovarian cancer Prostate cancer Myocardial infarction Breast cancer Colorectal cancer Social History Smoking Status: Never smoker Second Hand Exposure: Yes; Hx Alcohol Use: No Hx Substance Use: No Preferred Language: Portuguese Communication Ability: Effective Visual Impairment: No Limitations Hearing Ability: Normal 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 Required: No Beliefs That Will Affect Care: None marital status: Current Living Situation: Spouse current occupational status: retired 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 Feels Safe at Home: Yes Childhood Exposure to Second-Hand Smoke: Yes Dental Care, Regularly: Yes Physical Activity Frequency: 5-6 Times per Week Seatbelt Use: always Sunscreen Use: No Assistive Devices: None Review of Systems A total of 10 systems reviewed and were otherwise negative Physical Exam Vital Signs Vital Signs - 24 hr 06/17/21 12:59 06/17/21 14:10 06/17/21 14:30 Temperature 37.0 C Temperature Source Oral Pulse Rate 81 69 Pulse Rate [Apical] Pulse Rate from SpO2 Sensor 69 Pulse Rhythm [Apical] Pulse Strength [Apical] Respiratory Rate 16 18 16 Respiratory Effort / Characteristics Non-Labored Respiratory Depth Normal Respiratory Pattern Regular Blood Pressure 189/93 H 171/86 H Blood Pressure [Right Arm] 155/80 H Blood Pressure Mean 125 114 Blood Pressure Mean [Right Arm] 105 Blood Pressure Position [Right Arm] Lying Pulse Oximetry 99 97 97 Oxygen Delivery Method Room Air Room Air Sepsis Recent Fever Within 48 Hours No Sepsis New/Unexplained Change in Mental Status No Sepsis Action Taken by Nursing No Action Required 06/17/21 14:36 06/17/21 14:37 06/17/21 16:00 Temperature Temperature Source Pulse Rate 69 Pulse Rate [Apical] 78 Pulse Rate from SpO2 Sensor Pulse Rhythm [Apical] Regular Pulse Strength [Apical] Normal Respiratory Rate 20 22 Respiratory Effort / Characteristics Non-Labored Spontaneous Respiratory Depth Normal Respiratory Pattern Regular Blood Pressure Blood Pressure [Right Arm] 171/86 H Blood Pressure Mean Blood Pressure Mean [Right Arm] 114 Blood Pressure Position [Right Arm] Sitting Pulse Oximetry 97 97 99 Oxygen Delivery Method Room Air Room Air Room Air Sepsis Recent Fever Within 48 Hours Sepsis New/Unexplained Change in Mental Status Sepsis Action Taken by Nursing Physical Exam GENERAL: She is oriented to person, place, and time. She appears well-developed and well-nourished. She does not appear distressed. HENT: Exam performed. -Head: Normocephalic and atraumatic. -Right Ear: External ear normal. No mastoid tenderness. -Left Ear: External ear normal. No mastoid tenderness. -Mouth/Throat: The oropharynx is clear and moist. No trismus in the jaw. No dental abscesses or uvula swelling. No oropharyngeal exudate or tonsillar abscesses. EYES: Conjunctivae and EOM are normal. Pupils are equal, round, and reactive to light. Right eye exhibits no discharge. Left eye exhibits no discharge. No scleral icterus. NECK: Normal range of motion. Neck supple. No JVD present. No spinous process tenderness present. No carotid bruit present. No rigidity. No tracheal deviation and normal range of motion present. No Brudzinski's sign and no Kernig's sign noted. CV: Normal rate, regular rhythm, normal heart sounds and intact distal pulses. There is no peripheral edema. Palpable radial pulses bue. PULM/CHEST: Effort normal and breath sounds normal. No respiratory distress. No stridor. She has no wheezes. She has no rales. ABD: The abdomen is soft. Bowel sounds are normal. She has no distension. No mass is present. There is no tenderness. There is no rebound, no guarding, no Guerrero's sign and no tenderness at McBurney's point. Rovsig negative MUSC/SKEL: Normal range of motion. There is no peripheral edema, tenderness or deformity. LYMPH: No cervical adenopathy. NEURO: She is alert and oriented to person, place, and time. She has normal strength. No cranial nerve deficit or sensory deficit. Coordination and gait normal. GCS eye subscore is 4. GCS verbal subscore is 5. GCS motor subscore is 6. Cerebellar tests wnl. SKIN: Skin is warm and dry. She is not diaphoretic. PSYCH: She has a normal mood and affect. Behavior is normal. Judgment and thought content normal. Course Course 1305: The patient was evaluated in room A11. A complete history and physical exam was performed Cardiac monitoring: An order was placed for continuous cardiac monitoring. The monitor shows a rate of 80 with sinus rhythm 1515: Vital signs stable. Labs and imaging within normal limits. Patient reports her sublingual nitro significantly improved her pain. Patient was given the option for outpatient follow-up with cardiology or inpatient observation and the patient family elected for inpatient observation. [facility]ist Dr. Rodriguez's team was notified and will evaluate the patient. Administered Medications Sodium Chloride (Nss 1000ml) 1,000 mls @ 125 mls/hr IV .Q8H YADIEL Stop: 07/17/21 13:29 Last Infusion: 06/17/21 16:17 Dose: 0 mls/hr Documented by: [id number] Admin: 06/17/21 13:53 Dose: 125 mls/hr Documented by: [id number] Discontinued Medications Aspirin (Aspirin Chew 324 Mg) 324 mg PO NOW STA Stop: 06/17/21 13:19 Last Admin: 06/17/21 13:51 Dose: 324 mg Documented by: [id number] Nitroglycerin (Nitroglycerin Sl 0.4 Mg/Tab Tab) 0.4 mg SL NOW STA Stop: 06/17/21 13:19 Last Admin: 06/17/21 13:51 Dose: 0.4 mg Documented by: [id number] Medical Decision Making Laboratory Data Result diagrams: 06/17/21 14:00 06/17/21 14:00 Labs: Lab Results 06/17/21 06/17/21 06/17/21 Range/Units 14:00 14:00 16:10 WBC 3.74 L (4.8-10.8) K/uL RBC 3.52 L (4.2-5.4) M/uL Hgb 10.6 L (12.0-16.0) g/dL Hct 33.0 L (37-47) % MCV 93.8 (80-100) fL MCH 30.1 (25-34) pg MCHC 32.1 (32-36) g/dL RDW Std Deviation 45.7 (36.4-46.3) fL RDW Coeff of Yair 13.4 (11.5-14.5) % Plt Count 245 (130-400) K/uL MPV 10.2 (7.4-10.4) fL Immature Gran % (Auto) 0.0 % Neut % (Auto) 58.6 % Lymph % (Auto) 33.4 % Rogers % (Auto) 5.6 % Eos % (Auto) 2.1 % Baso % (Auto) 0.3 % Neut # (Auto) 2.19 (1.4-6.5) K/uL Lymph # (Auto) 1.25 (1.2-3.4) K/uL Rogers # (Auto) 0.21 (0.11-0.59) K/uL Eos # (Auto) 0.08 (0-0.5) K/uL Baso # (Auto) 0.01 (0-0.2) K/uL Immature Gran # (Auto) 0.00 (0.00-0.02) K/uL Sodium 141 (136-145) mmol/L Potassium 4.0 (3.5-5.1) mmol/L Chloride 108 H (98-107) mmol/L Carbon Dioxide 24 (21-32) mmol/L Anion Gap 8.0 (3-11) BUN 9 (7-18) mg/dl Creatinine 0.77 (0.6-1.2) mg/dl Est Cr Clr Drug Dosing Not Reportable Est GFR ( Amer) 87.5 ml/min Est GFR (Non-Af Amer) 75.5 ml/min BUN/Creatinine Ratio 12.1 (10-20) Glucose 86 (70-99) mg/dl Calcium 9.2 (8.5-10.1) mg/dl Troponin I < 0.015 (0-0.045) ng/ml SARS-CoV-2, RNA, NAAT NEGATIVE (NEGATIVE) Imaging Data Chest x-ray: Radiologist's impression: Chest X-Ray 06/17/21 13:06 XR chest 1V portable CLINICAL HISTORY: Atypical chest pain TECHNIQUE: Single frontal radiograph of the chest was obtained. Comparison: Comparison is made to chest one view 11/11/2019 FINDINGS: No lines and tubes are seen. The cardiomediastinal silhouette is normal. The lungs are clear. No evidence of pleural effusion or pneumothorax. IMPRESSION: No acute chest disease. ACT 112: Negative or not required by law. Electronically signed by: Abhijeet Fraga M.D. 06/17/2021 1:21 PM ECG Data Indication: chest pain Rate (beats per minute): 76 Rhythm: normal sinus Findings: no ST depression, no ST elevation or no prolonged QT MDM Narrative 1305: The patient was evaluated in room A11. A complete history and physical exam was performed Cardiac monitoring: An order was placed for continuous cardiac monitoring. The monitor shows a rate of 80 with sinus rhythm 1515: Vital signs stable. Labs and imaging within normal limits. Patient reports her sublingual nitro significantly improved her pain. Patient was given the option for outpatient follow-up with cardiology or inpatient observation and the patient family elected for inpatient observation. [facility] hospitalist Dr. Rodriguez's team was notified and will evaluate the patient. Impression & Plan Chest pain Discharge Plan Visit Data Chief Complaint: Chest Pain Stated Complaint: CHEST/HEART PAIN HAD LUNG DVT T-21 DAYS AGO Discharge Problem: Chest pain Patient Disposition: Being Evaluated by Hospitalist Forms Stand Alone Forms: My [facility] Prescriptions Prescriptions: No Action albuterol sulfate 90 mcg/actuation HFA aerosol inhaler 3 puffs INH Q6H PRN (Reason: shortness of breath or wheezing) Qty: 18 RF: 1 metoprolol tartrate 25 mg tablet 25 mg PO BID Qty: 180 RF: 3 ondansetron HCl 4 mg tablet 4 mg PO Q8H PRN (Reason: nausea and vomiting) Qty: 90 RF: 3 meclizine 25 mg Tablet 25 mg PO TID PRN (Reason: Vertigo) RF: 0 loratadine [Claritin] 10 mg Tablet 10 mg PO DAILY PRN (Reason: allergies) RF: 0 Lactinex 1 million cell Tablet,Chewable 2 - 3 tab PO TIDM RF: 0 gabapentin 100 mg capsule 200 mg PO HS PRN (Reason: Pain) RF: 0 telmisartan-hydrochlorothiazid 80-25 mg tablet 1 tab PO QAM RF: 0 lidocaine [Lidocaine Pain Relief] 4 % Adhesive Patch,Medicated 1 patch TOPICAL DAILY PRN (Reason: Pain) RF: 0 pantoprazole 40 mg tablet,delayed release (DR/EC) 40 mg PO BID RF: 0 Eliquis 5 mg tablet 5 mg PO BID 30 Days Qty: 60 RF: 6 Gaviscon 95-358 mg/15 mL Suspension 15 ml PO PCHS PRN (Reason: Gastric Reflux) RF: 0 ascorbic acid (vitamin C) [Vitamin C] 1,000 mg Tablet 0 mg PO QDL RF: 0 cholecalciferol (vitamin D3) [Vitamin D3] 25 mcg (1,000 unit) Capsule 0 mcg PO QDL RF: 0 Women's Multiple Vitamins 18-0.4 mg Tablet 1 tab PO QDL RF: 0 terbinafine HCl 1 % cream 1 applic topical BID PRN (Reason: foot) RF: 0 potassium chloride 10 mEq capsule, extended release 30 meq PO BID RF: 0 Referrals Referrals: Braulio Kaur MD [Primary Care Provider] -
[2021-06-17] MEDS ORDERED: LORazepam 0.5 MG TAB PO PRN (19:33)
[2021-06-17] MEDS ORDERED: LORATADINE 10 MG TAB PO PRN (19:33)
[2021-06-17] MEDS ORDERED: ONDANSETRON INJ 2 MG/ML 2 ML VIAL IV PRN (19:33)
[2021-06-17] MEDS ORDERED: MoRPHine SULFATE 2 MG/ML CARP IV PRN (19:33)
[2021-06-17] MEDS ORDERED: ALUMINUM/MAGNESIUM SUSP 30 ML UDC PO PRN (19:33)
[2021-06-17] MEDS ORDERED: ACETAMINOPHEN 325 MG TAB PO PRN (19:33)
[2021-06-17] MEDS ORDERED: ALBUTEROL HFA 8 GM INHALER INH PRN (19:33)
[2021-06-17] MEDS ORDERED: oxyCODONE HCL IR 5 MG TAB (IMMEDIATE RELEASE) PO PRN (19:33)
[2021-06-17] MEDS ORDERED: GABAPENTIN 100 MG CAP PO PRN (19:33)
[2021-06-17] MEDS ORDERED: ALUMINUM/MAGNESIUM/SIMETH (MAALOX MAX) 30 ML UDC PO PRN (19:47)
[2021-06-17] MEDS ORDERED: LIDOCAINE 5% 1 PATCH TD PRN (19:51)
[2021-06-17] MEDS ORDERED: MECLIZINE HCL 25 MG TAB PO PRN (19:53)
[2021-06-17] MEDS ORDERED: ONDANSETRON 4 MG OD TAB PO PRN (19:55)
[2021-06-17] MEDS ORDERED: POTASSIUM CHLORIDE 10 MEQ TABCR PO SCH (21:00)
[2021-06-17] MEDS: APIXABAN 5 MG TABLET PO SCH (21:13)
[2021-06-17] MEDS: PANTOprazole 40 MG TAB PO SCH (21:13)
[2021-06-17] MEDS: METOPROLOL TARTRATE 25 MG TAB PO SCH (21:13)
[2021-06-17] MEDS: POTASSIUM CHLORIDE 10 MEQ TABCR PO SCH (22:44)
[2021-06-18 04:23] LABS: Hematocrit (blood only) 32.2 % (37-47); Hemoglobin 10.4 g/dL (12.0-16.0); Mean Corpuscular Hemoglobin 30.1 pg (25-34); Mean Corpuscular Hgb Conc 32.3 g/dL (32-36); Mean Corpuscular Volume 93.3 fL (80-100); Mean Platelet Volume 9.8 fL (7.4-10.4); Platelet Count 229 K/uL (130-400); RDW Coefficient of Variation 13.3 % (11.5-14.5); RDW Standard Deviation 45.3 fL (36.4-46.3); Red Blood Count 3.45 M/uL (4.2-5.4)
[2021-06-18 04:40] LABS: BUN Creatinine Ratio 14.9 (10-20); Blood Urea Nitrogen 13 mg/dl (7-18); Calcium 9.6 mg/dl (8.5-10.1); Carbon Dioxide 26 mmol/L (21-32); Chloride 111 mmol/L (98-107); Creatinine Clr Calc Pharmacy 56.3 ml/min; Est GFR (African American) 78.8 ml/min; Glucose 86 mg/dl (70-99); Potassium 3.9 mmol/L (3.5-5.1); Sodium 141 mmol/L (136-145)
[2021-06-18 04:44] LABS: Troponin I < 0.015 ng/ml (0-0.045)
[2021-06-18] MEDS: SODIUM CHLORIDE 0.9% 1000ML 1,000 ML IV SCH (06:33)
[2021-06-18] MEDS ORDERED: ADVANCED PROBIOTIC 1250 MG CAPSULE PO SCH (08:00)
[2021-06-18] MEDS: POTASSIUM CHLORIDE 10 MEQ TABCR PO SCH (08:13)
[2021-06-18] MEDS: METOPROLOL TARTRATE 25 MG TAB PO SCH (08:13)
[2021-06-18] MEDS: APIXABAN 5 MG TABLET PO SCH (08:13)
[2021-06-18] MEDS: PANTOprazole 40 MG TAB PO SCH (08:13)
[2021-06-18] MEDS ORDERED: TELMISARTAN 40 MG TAB PO SCH (09:00)
[2021-06-18] MEDS ORDERED: hydroCHLOROthiazide 25 MG TAB PO SCH (09:00)
--- NOTE | 2021-06-18 09:58 | Electrocardiogram Report ---
Test Reason : Blood Pressure : / mmHG Vent. Rate : 076 BPM Atrial Rate : 076 BPM P-R Int : 166 ms QRS Dur : 080 ms QT Int : 362 ms P-R-T Axes : 058 017 034 degrees QTc Int : 407 ms Normal sinus rhythm Normal ECG When compared with ECG of 28-MAY-2021 04:11, No significant change was found Confirmed by Stephen Ruiz ([id number]) on 06/18/2021 9:57:54 AM Referred By: Confirmed By:Stephen Ruiz
--- NOTE | 2021-06-18 10:28 | Electrocardiogram Report ---
Test Reason : Blood Pressure : / mmHG Vent. Rate : 073 BPM Atrial Rate : 073 BPM P-R Int : 182 ms QRS Dur : 082 ms QT Int : 388 ms P-R-T Axes : 047 014 033 degrees QTc Int : 427 ms Normal sinus rhythm Normal ECG When compared with ECG of 17-JUN-2021 13:05, (unconfirmed) No significant change was found Confirmed by Stephen Ruiz ([id number]) on 06/18/2021 10:28:16 AM Referred By: REFERRED SELF Confirmed By:Stephen Ruiz
[2021-06-18] MEDS ORDERED: CEROVITE ADV FORMULA TAB PO SCH (11:30)
--- NOTE | 2021-06-18 12:08 | Discharge Summary ---
Date of Service June 18, 2021 Admission HPI Per Admitting Provider Patient is 4 days prior to presentation had a history of sharp stabbing reproducible left pain below her breast seemingly at the junction of her rib and sternum. She denies any nausea diaphoresis reproducibility other than with position and pressure has had no coughing. On her last admission for pulmonary embolism May 27 an echocardiogram was performed showing a preserved ejection fraction mild elevation of right heart pressures. No RV strain was noted. In the ER she had normal EKG negative troponin normal serologies normal chest x- ray and no skin changes consistent with any type of skin lesion. She is recommended for observation for chest pain Principal Diagnosis Noncardiac chest pain Discharge Exam The patient appeared well Vital signs as documented. Lungs are clear to auscultation and appear unlabored Cardiac exam, Rhythm is regular.. No murmurs, rubs or gallops. Abdominal exam reveals normal bowel sounds, soft non tender, no masses Extremities are nonedematous and both pedal pulses are normal. Neurologic exam is alert and oriented, no focal loss of strength or sensation Skin is without bruises or rashes Psychologically is without concerns for anxiety or depression. Discharge Data Allergies Allergy/AdvReac Type Severity Reaction Status Date / Time Sulfa (Sulfonamide Allergy Intermediate LIPS Verified 06/17/21 14:41 Antibiotics) SWELLING amlodipine [From [facility]] Allergy Unknown Unknown Verified 06/17/21 14:41 garlic Allergy Gastrointestinal Verified 06/17/21 14:41 Upset erythromycin base AdvReac Mild DIZZY Verified 06/17/21 14:41 propoxyphene AdvReac Mild DIZZINESS Verified 06/17/21 14:41 Consultations 06/17/21 15:19 ED Decision to Admit Stat 06/18/21 11:20 Consult [facility] supervising fire marshal Routine Procedures Performed Chest X-Ray 06/17/21 13:06 XR chest 1V portable CLINICAL HISTORY: Atypical chest pain TECHNIQUE: Single frontal radiograph of the chest was obtained. Comparison: Comparison is made to chest one view 11/11/2019 FINDINGS: No lines and tubes are seen. The cardiomediastinal silhouette is normal. The lungs are clear. No evidence of pleural effusion or pneumothorax. IMPRESSION: No acute chest disease. ACT 112: Negative or not required by law. Electronically signed by: Abhijeet Fraga M.D. 06/17/2021 1:21 PM Hospital Course (1) Chest pain: Patient presents with reporducible chest discomfort. Recently diagnosed with pulmonary embolism on May 27, 2021. She has been anticoagulated with Eliquis. On that hospital stay she had an echocardiogram which did not show regional wall motion abnormalities.. Patient has all normal troponin and eCG Patient was given aspirin in the emergency department. She typically does not take an aspirin or statin and given low concern for cad will not be discharged on aspirin pain is reproducible below left breast, no skin changes to concern for zoster will have outpt stress test referral (2) Multiple pulmonary emboli: Patient remains full anticoagulate with Eliquis (3) GERD (gastroesophageal reflux disease): Protonix continues on once a day, pt related many food sensitivities, will have outpt allergy referral (4) HTN (hypertension): Patient is on metoprolol tartrate 25 twice daily Total Time Total Time Spent Total Time Spent (In Minutes): Discharge 30 including prolonged bedside evaluation is a patient many questions about dietary intolerances Discharge Plan Discharge Items Patient Disposition: Home - Self-Care Reason For Visit: CHEST/HEART PAIN HAD LUNG DVT T-21 DAYS AGO Discharge Diagnosis: non cardiac chest pain Activity: Per Instructions section Activity Comment: continue to increase activity, if pain occures stop and rest Non-emergency contact: Primary Care Provider and Driver Medic Call non-emergency contact if: your symptoms worsen and you have a fever Follow-up/Referrals: ProBraulio MD [Primary Care Provider] - Diet: Regular Addtl Attending Provider Instructions: please be reassured that your hospital work up places you at low risk for this chest pain being from your heart or lung you will be called about stress test for your heart and an appointment with allergy to discuss your food issues Pending Studies at Discharge: No Stand-Alone Forms: My [employer], Smoking Cessation Medications and DC Order Prescriptions: Continued albuterol sulfate 90 mcg/actuation HFA aerosol inhaler 3 puffs INH Q6H PRN (Reason: shortness of breath or wheezing) Qty: 18 RF: 1 metoprolol tartrate 25 mg tablet 25 mg PO BID Qty: 180 RF: 3 ondansetron HCl 4 mg tablet 4 mg PO Q8H PRN (Reason: nausea and vomiting) Qty: 90 RF: 3 meclizine 25 mg Tablet 25 mg PO TID PRN (Reason: Vertigo) RF: 0 loratadine [Claritin] 10 mg Tablet 10 mg PO DAILY PRN (Reason: allergies) RF: 0 Lactinex 1 million cell Tablet,Chewable 2 - 3 tab PO TIDM RF: 0 gabapentin 100 mg capsule 200 mg PO HS PRN (Reason: Pain) RF: 0 telmisartan-hydrochlorothiazid 80-25 mg tablet 1 tab PO QAM RF: 0 lidocaine [Lidocaine Pain Relief] 4 % Adhesive Patch,Medicated 1 patch TOPICAL DAILY PRN (Reason: Pain) RF: 0 pantoprazole 40 mg tablet,delayed release (DR/EC) 40 mg PO BID RF: 0 Eliquis 5 mg tablet 5 mg PO BID 30 Days Qty: 60 RF: 6 Gaviscon 95-358 mg/15 mL Suspension 15 ml PO PCHS PRN (Reason: Gastric Reflux) RF: 0 ascorbic acid (vitamin C) [Vitamin C] 1,000 mg Tablet 0 mg PO QDL RF: 0 cholecalciferol (vitamin D3) [Vitamin D3] 25 mcg (1,000 unit) Capsule 0 mcg PO QDL RF: 0 ksuhtbnnjelq-El-soki-minerals 18-0.4 mg Tablet 1 tab PO QDL RF: 0 terbinafine HCl 1 % cream 1 applic topical BID PRN (Reason: foot) RF: 0 potassium chloride 10 mEq capsule, extended release 30 meq PO BID RF: 0 Discharge Orders: Discharge Order (Routine); Ordered 06/18/21 Ordered By: Robbie Lu Admission Data Admit Date/Time: 06/17/21 16:03 Attending Provider: Robbie Lu Admit Provider: Robbie Lu Primary Care Provider: Braulio Kaur Other Providers: Robbie Lu Other Interventions: Discharge Summary Assessment (RN) Last Done: 06/18/21 11:54 Coding Level of Care Code D/C DAY MANAGEMENT >30 MINS Diagnoses Chest pain R07.9 Chest pain type: unspecified Multiple pulmonary emboli I26.99 GERD (gastroesophageal reflux disease) K21.9 HTN (hypertension) I10
--- NOTE | 2021-06-20 05:28 | Electrocardiogram Report ---
Test Reason : Blood Pressure : / mmHG Vent. Rate : 072 BPM Atrial Rate : 072 BPM P-R Int : 176 ms QRS Dur : 086 ms QT Int : 386 ms P-R-T Axes : 053 021 034 degrees QTc Int : 422 ms Normal sinus rhythm Normal ECG When compared with ECG of 17-JUN-2021 17:14, No significant change was found Confirmed by Naseem Navas ([id number]) on 06/20/2021 5:28:19 AM Referred By: REFERRED SELF Confirmed By:Naseem Navas
== END 2021-06-18 12:44 | disposition home or self-care (01) ==
LOC: EDINP 12:53 → ED 12:53 → EDINP 18:55

== ENCOUNTER 2024-03-11 15:24 | Observation (INO) ==
--- NOTE | 2024-03-11 15:42 | Emergency Department Note ---
Impression & Plan Chest pain, Hypertensive urgency ED Provider Note CHIEF COMPLAINT: Chest Pain HISTORY OF PRESENTING ILLNESS: This 78 year old female presents to the ER via ambulance with her family for evaluation of chest pain. The patient states that she was sitting at her neurologist's office around 1:30 pm today and developed left-sided chest pain that radiated to her back and down her left arm. They took her BP and it was in the 220's. She is still having the chest pain and rates it as stabbing and 8/10. She feels like the pain is getting worse into her back. She denies SOB. Denies abdominal pain, nausea, or vomiting. Denies fevers, cough, or URI symptoms. She denies pain or swelling in her legs. She is on Eliquis for a history of PE. She has a history HTN and is on medication, but states that she is normally well controlled. She denies a history of heart problems or aortic aneurysm. She states that she thinks she had a cardiac workup in the spring. She denies a history of cardiac catheterization. She states that she has had chest pain before that has been diagnosed as non- cardiac per patient. Per records from neurology, her vitals were (198/82, HR 82, 97%), (210/98, HR 71), and (224/77). REVIEW OF SYSTEMS: See HPI for pertinent positives and pertinent negatives. ALLERGIES: Sulfa, amlodipine, erythromycin, propoxyphene, sertraline, milk, and garlic MEDICATIONS: See below PAST MEDICAL HISTORY: See below PHYSICAL EXAM: VITALS: Vitals are noted on the nurse's note and reviewed by myself. GENERAL: Non toxic, no acute distress, non-diaphoretic. SKIN: Capillary refill <2 sec. EYES: PERRLA. EOMI. Conjunctivae without injection, sclerae without icterus. NOSE: Patent without discharge. MOUTH: Mucous membranes moist. Uvula midline. Airway patent. NECK: Supple without nuchal rigidity. HEART: Regular rate and rhythm without murmurs gallops or rubs. LUNGS: Clear to auscultation bilaterally without wheezes, rales or rhonchi. No retractions or accessory muscle use. CHEST: The patient is holding her hand over the left side of her chest. There is mild tenderness to palpation over the left chest wall, but she states the pain feels much deeper. No crepitus or flail chest. ABDOMEN: Positive bowel sounds x 4. Normal tympanic percussion. Soft, nontender. No masses or organomegaly. Guerrero sign negative. No guarding or rebound tenderness. No focal RLQ or LLQ tenderness. MUSCULOSKELETAL: No gross musculoskeletal defects. Bilateral legs are nontender to palpation. No erythema, edema, warmth, or cording. Peripheral pulses 2+ and equal in the bilateral upper and lower extremities. NEURO: Patient was alert and oriented. No focal neurological deficits. DIFFERENTIAL DIAGNOSIS: Differential diagnosis includes angina, MO, pericarditis, myocarditis, aortic dissection, pleurisy, pneumothorax, PE, pneumonia, pneumomediastinum, esophagitis, esophageal spasm, GERD, perforated esophagus, perforated duodenal/gastric ulcer, pancreatitis, cholecystitis, costochondritis, musculoskeletal, bronchitis, URI, or others. ED COURSE AND MEDICAL DECISION MAKING: HISTORY FROM INDEPENDENT HISTORIAN: Additional history obtained from the patient's family and EMS. MEDICATIONS GIVEN: Morphine 4 mg IV, Zofran 4 mg IV, Pepcid 20 mg IV, Tylenol 1000 mg IV. Hydralazine 5 mg IV x 2. MONITOR: Continuous radiation monitor: Order was placed for continuous radiation monitor. Patient was placed on the radiation monitor and continuous pulse ox. Patient was noted to be in normal sinus rhythm at an initial rate of 80 bpm per my interpretation. The patient's blood pressures were initially 198/82, 210/98, and 207/103 in the ER. EKG: Prehospital EKG was interpreted by myself as normal sinus rhythm at 74 bpm with no acute ST or T wave changes. EKG in the ER was interpreted by myself as normal sinus rhythm at 63 bpm with no acute ST or T wave changes. INTERPRETATION OF LABS: I interpreted the labs with full lab results as below in the lab section of this note. Pertinent lab results discussed in the MDM section below. INTERPRETATION OF IMAGING: Imaging studies were interpreted by myself and read by radiology as per the imaging section of this note. CT scan of the head without contrast was negative for acute intracranial abnormality. CTA of the chest and CT of the abdomen pelvis with IV contrast with dissection protocol showed no evidence for aortic aneurysm or dissection, but does show moderate atherosclerosis of the thoracic aorta as well as moderate plaque within the abdominal aorta and branch vessels. No convincing evidence for PE. No evidence of pneumonia or other acute cardiopulmonary etiology. No acute intra-abdominal or intrapelvic etiology. EXTERNAL RECORDS REVIEWED: Records from her PCPs office were reviewed and summarized as above. CONSULTATIONS: On-call hospitalist MDM SUMMARY: I examined the patient. The patient was at her neurologist appointment today and started with left-sided chest pain that radiated to her back and left arm around 1:30 PM. They checked her blood pressure and it was significantly elevated. Therefore, she was sent to the ER via ambulance. An IV lock was placed and labs were drawn. After discussion with Dr. Doe, nitroglycerin was held at this time due to the patient's presentation and she was not given aspirin since she is on Eliquis and there is concern for possible dissection. The patient was initially given morphine 4 mg IV and Zofran 4 mg IV without significant improvement of her pain and she stated that she did not like the way the morphine made her feel. She was then given Tylenol 1000 mg IV and Pepcid 20 mg IV with improvement of her pain, but not full resolution. EKG and high-sensitivity troponin x [address] of the chest and CT of the abdomen pelvis with IV contrast for dissection protocol was negative for aneurysm or dissection, but does show atherosclerosis and plaque throughout the aorta and branch vessels. No obvious evidence for PE or other acute abnormalities. CT scan of the head without contrast was negative for acute intracranial abnormality. White blood cell count low at 4.50, but she has a history of lower white blood cell counts. Hemoglobin normal at 12.5. Platelet count normal at 216. Coags were normal. CMP normal. Lipase normal. TSH normal. Magnesium normal. Urinalysis normal. The patient's blood pressure remains elevated despite improvement of the patient's pain, but her pulse remained in the 60s. Therefore, the patient was given hydralazine 5 mg IV x 2. The patient did have mild improvement of her blood pressure. Question whether the patient's chest pain is causing the hypertension or whether hypertensive urgency is causing the chest pain. The patient also has some reproducibility of the pain to the left side of the chest, but the pain also radiates into her back and left arm. Question whether there is a component of costochondritis. I also discussed the possibility of acid reflux as a cause of her symptoms since the pain improved after IV Tylenol and IV Pepcid. I had a meaningful discussion about this patient with Dr. Doe who agrees with my assessment and the treatment plan. We feel the patient requires admission for further evaluation and treatment and the patient and her family agree. I spoke with the on-call hospitalist who agreed to admit the patient for further management. Please refer to their dictation for further details. The patient's care was transferred in stable condition. DIAGNOSIS: Chest pain Hypertensive urgency Past Med/Surg History Problem List (Updated 03/12/24 @ 12:35 by Ignacia Forte PA-C) Hypertensive urgency (Acute) Chest pain (Acute) Vertigo Dysphagia LPRD (laryngopharyngeal reflux disease) Bilateral tinnitus Sensorineural hearing loss (SNHL) of both ears Vitamin B12 deficiency Myoclonia Essential hypertension Occipital neuralgia Lumbar degenerative disc disease Diarrhea Depression with anxiety Current use of proton pump inhibitor HTN (hypertension) GERD (gastroesophageal reflux disease) (Chronic) HTN (hypertension) Palpitations Asthma (Acute) Abdominal pain, chronic, epigastric (Acute) TMJ arthralgia (Acute) Lumbar radiculopathy (Acute) Internal hemorrhoids (Acute) Diverticulosis (Acute) Chronic reflux esophagitis (Chronic) Biliary dyskinesia (Acute) Arthritis of hand (Acute) Allergic rhinitis (Acute) Esophageal dysphagia Anemia Pain of left calf (Acute) Family history of blood clots Radicular pain in right arm (Chronic) Tinea pedis (Acute) Costochondritis, acute Cervical radiculopathy Cervical disc disease Small intestinal bacterial overgrowth (SIBO) Osteopenia Disorder of rotator cuff Hearing loss Medical History Greater tuberosity of humerus fracture (01/15/23) Multiple pulmonary emboli Radicular pain in right arm Back problem Sciatica Abdominal pain Nausea GERD (gastroesophageal reflux disease) TMJ (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 joint disorder) History of migraine Anemia Cough Memory loss Mild depression Recent skin changes Sinusitis Acute hypokalemia Chest pain Anemia History of depression Surgical History History of D&C History of tonsillectomy History of partial hysterectomy History of esophagogastroduodenoscopy (EGD) History of colonoscopy Family History Mother Diabetes Alzheimer disease Hypertension Family/Other Diabetes Sister Diabetes Hypertension Brother Hypertension Father Lung cancer Cancer Other No family history of adverse response to anesthesia No family history of bleeding disorder Denies family history of Ovarian cancer Prostate cancer Myocardial infarction Breast cancer Colorectal cancer Social History (System 03/11/24 @ 15:42 by Nancy Ernandez) Smoking Status: Never smoker Second Hand Exposure: No; Do You Dip or Chew Tobacco: No; Tobacco Cessation Education Requested by Patient: No Hx Alcohol Use: No Hx Substance Use: No Preferred Language: Czech Communication Ability: Effective Visual Impairment: No Limitations Hearing Ability: Normal Records Management Clerk Required: No Beliefs That Will Affect Care: None marital status: Current Living Situation: Spouse Current Living Situation Comment: lives at home with current occupational status: retired 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 Other Information That Helps Us Care for You: No Feels Safe at Home: Yes Safety Concerns: Feels Safe At This Time Childhood Exposure to Second-Hand Smoke: Yes Dental Care, Regularly: Yes Physical Activity Frequency: 5-6 Times per Week Seatbelt Use: always Sunscreen Use: No Assistive Devices: Walker Allergies Allergies Allergy/AdvReac Type Severity Reaction Status Date / Time Sulfa (Sulfonamide Allergy Intermediate LIPS Verified 03/11/24 15:42 Antibiotics) SWELLING amlodipine [From Norvas] Allergy Unknown Unknown Verified 03/11/24 15:42 sertraline Allergy Unknown Tremors Verified 03/11/24 23:42 garlic Allergy Gastrointestinal Verified 03/11/24 15:42 Upset milk Allergy Unknown Verified 03/11/24 15:42 erythromycin base AdvReac Mild DIZZY Verified 03/11/24 15:42 propoxyphene AdvReac Mild DIZZINESS Verified 03/11/24 15:42 Home Meds Home Medications Medication Instructions Recorded Confirmed loratadine 10 mg tablet (Claritin) 10 mg PO DAILY PRN allergies 11/11/18 03/11/24 meclizine 25 mg tablet 25 mg PO TID PRN Vertigo 11/11/18 03/11/24 lidocaine 4 % topical patch 1 patch topical DAILY PRN Pain 04/20/21 03/11/24 (Lidocaine Pain Relief) cholecalciferol (vitamin D3) 25 25 mcg PO QDL 11/15/21 03/11/24 mcg (1,000 unit) capsule (Vitamin D3) ipratropium bromide 21 mcg (0.03 2 spray intranasal BID PRN Allergy 11/15/21 03/11/24 %) nasal spray Symptoms albuterol sulfate 90 mcg/actuation 2 puffs inhalation Q6H PRN 07/26/23 03/11/24 aerosol inhaler shortness of breath or wheezing nystatin 100,000 unit/gram topical 1 applic topical BID PRN irritation 07/26/23 03/11/24 powder Saccharomyces boulardii 250 mg 250 mg PO DAILY 09/12/23 03/11/24 capsule (Daily Probiotic (S. boulardii)) mecobalamin (vitamin B12) 500 mcg 500 mcg PO DAILY 10/09/23 03/11/24 chewable tablet famotidine 20 mg tablet 20 mg PO BID 03/11/24 03/11/24 multivitamin with minerals 1 tab PO DAILY 03/11/24 03/11/24 (Multiple Vitamin-Minerals tablet) vitamin B complex 1 tab PO DAILY 03/11/24 03/11/24 Previous Rx's Medication Instructions Recorded ondansetron HCl 4 mg tablet 4 mg PO Q8H PRN nausea and 08/16/22 vomiting #20 tabs propranolol 60 mg capsule,24 60 mg PO DAILY #90 caps 10/16/23 hr,extended release apixaban 5 mg tablet (Eliquis) 5 mg PO BID #180 tabs 01/20/24 gabapentin 100 mg capsule 200 mg (2 x 100 mg) PO HS Pain #60 03/11/24 caps Results & Data (ED) Vital Signs Vital Signs - 24 hr 03/11/24 15:31 03/11/24 15:31 03/11/24 15:31 Temperature 36.9 C 36.9 C Temperature Source Oral Oral Pulse Rate 70 Pulse Rate [Finger] 70 Pulse Rhythm Regular Pulse Rhythm [Finger] Regular Pulse Strength Normal Pulse Strength [Finger] Normal Respiratory Rate 18 20 Respiratory Effort / Characteristics Non-Labored Spontaneous Respiratory Depth Normal Normal Blood Pressure 207/103 H Blood Pressure [Left Arm] 207/103 H Blood Pressure Mean 137 Blood Pressure Mean [Left Arm] 137 Blood Pressure Position Sitting Blood Pressure Position [Left Arm] Sitting Pulse Oximetry 96 96 95 Oxygen Delivery Method Room Air Room Air Room Air Oxygen Flow Rate 0 Sepsis Recent Fever Within 48 Hours No Sepsis New/Unexplained Change in Mental Status N/A Sepsis Action Taken by Nursing No Action Required 03/11/24 15:33 03/11/24 16:04 03/11/24 17:25 Temperature Temperature Source Pulse Rate 66 Pulse Rate [Finger] 66 Pulse Rhythm Pulse Rhythm [Finger] Pulse Strength Pulse Strength [Finger] Respiratory Rate 20 Respiratory Effort / Characteristics Non-Labored Spontaneous Respiratory Depth Normal Blood Pressure Blood Pressure [Left Arm] 230/97 H Blood Pressure Mean Blood Pressure Mean [Left Arm] 141 Blood Pressure Position Blood Pressure Position [Left Arm] Pulse Oximetry 97 92 Oxygen Delivery Method Room Air Room Air Oxygen Flow Rate Sepsis Recent Fever Within 48 Hours Sepsis New/Unexplained Change in Mental Status Sepsis Action Taken by Nursing 03/11/24 19:03 03/11/24 19:30 03/11/24 21:03 Temperature Temperature Source Pulse Rate 60 Pulse Rate [Finger] 60 70 Pulse Rhythm Pulse Rhythm [Finger] Regular Pulse Strength Pulse Strength [Finger] Normal Respiratory Rate 20 20 Respiratory Effort / Characteristics Non-Labored Spontaneous Non-Labored Spontaneous Respiratory Depth Normal Normal Blood Pressure Blood Pressure [Left Arm] 208/88 H 187/98 H Blood Pressure Mean Blood Pressure Mean [Left Arm] 128 127 Blood Pressure Position Blood Pressure Position [Left Arm] Sitting Pulse Oximetry 97 96 Oxygen Delivery Method Room Air Room Air Oxygen Flow Rate Sepsis Recent Fever Within 48 Hours Sepsis New/Unexplained Change in Mental Status Sepsis Action Taken by Nursing Laboratory Data 03/12/24 07:06 03/12/24 07:06 Lab Results 03/11/24 03/11/24 03/11/24 Range/Units 15:54 16:04 18:11 WBC 4.50 L (4.8-10.8) K/ul RBC 4.10 L (4.20-5.40) M/uL Hgb 12.5 (12.0-16.0) g/dl POC Hgb 13.6 (12.0-16.0) g/dl Hct 37.7 (37.0-47.0) % POC Hct 40 (37-47) % MCV 92.0 (80.0-100.0) fL MCH 30.5 (25.0-34.0) pg MCHC 33.2 (32.0-36.0) g/dL RDW Std Deviation 41.8 (36.4-46.3) fL RDW Coeff of Yair 12.3 (11.5-14.5) % Plt Count 216 (130-400) K/uL MPV 10.6 (9.4-12.4) fL Immature Gran % (Auto) 0.2 % Neut % (Auto) 60.5 % Lymph % (Auto) 30.7 % [place] % (Auto) 7.1 % Eos % (Auto) 1.3 % Baso % (Auto) 0.2 % Neut # (Auto) 2.72 (1.40-6.50) K/uL Lymph # (Auto) 1.38 (1.20-3.40) K/uL [place] # (Auto) 0.32 (0.11-0.59) K/uL Eos # (Auto) 0.06 (0.00-0.50) K/uL Baso # (Auto) 0.01 (0.00-0.20) K/uL Immature Gran # (Auto) 0.01 (0.01-0.20) K/uL PT 11.3 (9.0-12.0) Seconds INR 1.0 (0.9-1.1) APTT 27 (21-31) Seconds PTT Ratio 1.0 POC Sodium 141 (135-144) mmol/L Sodium 138 (136-145) mmol/L POC Potassium 3.6 (3.3-5.0) mmol/L Potassium 3.6 (3.5-5.1) mmol/L POC Chloride 105 (101-112) mmol/L Chloride 104 (98-107) mmol/L Carbon Dioxide 25 (21-32) mmol/L POC Total CO2 24 (24-31) mmol/L Anion Gap 9 (3-11) POC Anion Gap 16.0 (16-25) mmol/L POC BUN 13 (7-18) mg/dl BUN 13 (6-23) mg/dl Creatinine 0.85 (0.6-1.2) mg/dl POC Creatinine 0.9 (0.6-1.3) mg/dl Est Cr Clr Drug Dosing 55.6 ml/min Est GFR ( Amer) 76.1 ml/min Est GFR (Non-Af Amer) 65.6 ml/min BUN/Creatinine Ratio 15.3 (10-20) Glucose 81 (70-99(Fasting)) mg/dl POC Glucose (other) 80 (70-99) mg/dl Calcium 10.3 (8.6-10.3) mg/dl POC Ioniz Calcium E[place] 1.19 (1.12-1.32) mmol/l Magnesium 2.2 (1.7-2.4) mg/dl Total Bilirubin 0.4 (0.2-1.0) mg/dl AST 17 (13-39) U/L ALT 11 (7-52) U/L Alkaline Phosphatase 82 (34-104) U/L Troponin I High Sens 4.7 4.8 (0-14) pg/ml Total Protein 8.1 (6.0-8.3) gm/dl Albumin 4.9 (3.4-5.0) gm/dl Globulin 3.2 (2.5-4.0) gm/dl Albumin/Globulin Ratio 1.5 (0.9-2) Lipase 29 (11-82) U/L TSH 0.792 (0.300-4.500) uIu/ml Urine Color Yellow Urine Appearance Clear (Clear) Urine pH 8.0 H (4.5-7.5) Ur Specific [place] 1.012 (1.000-1.030) Urine Protein Negative (Negative) Urine Glucose (UA) Negative (Negative) Urine Ketones Negative (Negative) Urine Blood Negative (Negative) Urine Nitrite Negative (Negative) Urine Bilirubin Negative (Negative) Urine Urobilinogen Negative (Negative) Ur Leukocyte Esterase Negative (Negative) Administered Medications Apixaban (Apixaban 5 Mg Tablet) 5 mg PO BID [facility] Stop: 04/11/24 08:59 Last Admin: 03/12/24 09:00 Dose: 5 mg Documented By: FRANCOISE Famotidine (Famotidine 20 Mg Tab) 20 mg PO BID [facility] Stop: 04/11/24 08:59 Last Admin: 03/12/24 09:00 Dose: 20 mg Documented By: FRANCOISE Pantoprazole Sodium (Pantoprazole 40 Mg Tab) 40 mg PO DAILY [facility] Stop: 04/11/24 08:59 Last Admin: 03/12/24 09:00 Dose: 40 mg Documented By: WS Propranolol HCl (Propranolol Hcl 60 Mg [place]) 60 mg PO DAILY [facility] Stop: 04/11/24 08:59 Last Admin: 03/12/24 09:00 Dose: 60 mg Documented By: FRANCOISE Vitamin D (Cholecalciferol 25 Mcg (1000 Units) Tab) 25 mcg PO QDL [facility] Stop: 04/11/24 11:29 Last Admin: 03/12/24 09:02 Dose: 25 mcg Documented By: FRANCOISE Discontinued Medications Hydralazine HCl (Hydralazine Hcl 20 Mg/Ml Vial) 5 mg IV NOW ONE Stop: 03/11/24 19:02 Last Admin: 03/11/24 19:12 Dose: 5 mg Documented By: ABDOUL Hydralazine HCl (Hydralazine Hcl 20 Mg/Ml Vial) 5 mg IV NOW ONE Stop: 03/11/24 20:07 Last Admin: 03/11/24 20:14 Dose: 5 mg Documented By: ABDOUL Famotidine (Pepcid 20mg Iv Push) 20 mg in 5 mls @ 2.5 mls/min IV NOW STA Stop: 03/11/24 17:03 Last Admin: 03/11/24 17:15 Dose: 2.5 mls/min Documented By: ABDOUL Acetaminophen (Ofirmev) 1,000 mg in 100 mls @ 400 mls/hr IV NOW STA Stop: 03/11/24 17:40 Last Infusion: 03/11/24 18:25 Dose: Infused Documented By: Admin: 03/11/24 17:34 Dose: 400 mls/hr Documented By: ABDOUL Ioversol (Optiray 320 125ml) 119 ml IV ONCE ONE Stop: 03/11/24 16:26 Last Admin: 03/11/24 16:25 Dose: 119 ml Documented By: MC Lisinopril (Lisinopril 10 Mg Tab) 10 mg PO NOW STA Stop: 03/12/24 05:34 Last Admin: 03/12/24 06:01 Dose: 10 mg Documented By: JEM Morphine Sulfate (Morphine Sulfate 4 Mg/Ml 1 Ml Carp\Vial) 4 mg IV NOW STA Stop: 03/11/24 15:48 Last Admin: 03/11/24 16:08 Dose: 4 mg Documented By: ABDOUL Ondansetron HCl (Ondansetron Inj 2 Mg/Ml 2 Ml Vial) 4 mg IV NOW STA Stop: 03/11/24 15:48 Last Admin: 03/11/24 16:07 Dose: 4 mg Documented By: ABDOUL Discharge Plan Visit Data Chief Complaint: Chest Pain Stated Complaint: CHEST PAIN ED Provider: Radha Doe ED Midlevel Provider: Ignacia Forte Discharge Problem: Chest pain, Hypertensive urgency Patient Disposition: Admitted As Inpatient Condition: Good Discharge Instructions Interventions: ED Discharge Assessment Last Done: 03/11/24 22:27 Discharge Problem: Chest pain Qualifiers: Chest pain type: unspecified Qualified Code(s): R07.9 - Chest pain, unspecified
[2024-03-11] MEDS: ONDANSETRON INJ 2 MG/ML 2 ML VIAL IV STA (16:07)
[2024-03-11] MEDS: MoRPHine SULFATE 4 MG/ML 1 ML CARP\\VIAL IV STA (16:08)
[2024-03-11 16:09] LABS: Appearance Urine Clear (Clear); Bilirubin Urine Negative (Negative); Blood Urine Negative (Negative); Color Urine Yellow; Glucose Urine UA Negative (Negative); Ketones Urine Negative (Negative); Leukocyte Esterase Urine Negative (Negative); Nitrite Urine Negative (Negative); Protein Urine Negative (Negative); Specific Gravity Urine 1.012 (1.000-1.030); Urobilinogen Urine Negative (Negative)
[2024-03-11 16:12] LABS: Basophils # (auto) 0.01 K/uL (0.00-0.20); Basophils % (auto) 0.2 %; Eosinophils # (auto) 0.06 K/uL (0.00-0.50); Eosinophils % (auto) 1.3 %; Hematocrit (blood only) 37.7 % (37.0-47.0); Hemoglobin 12.5 g/dl (12.0-16.0); Immature Granulocytes # (auto) 0.01 K/uL (0.01-0.20); Immature Granulocytes % (auto) 0.2 %; Lymphocytes # (auto) 1.38 K/uL (1.20-3.40); Lymphocytes % (auto) 30.7 %; Mean Corpuscular Hemoglobin 30.5 pg (25.0-34.0); Mean Corpuscular Hgb Conc 33.2 g/dL (32.0-36.0); Mean Platelet Volume 10.6 fL (9.4-12.4); Monocytes # (auto) 0.32 K/uL (0.11-0.59); Monocytes % (auto) 7.1 %; Neutrophils # (auto) 2.72 K/uL (1.40-6.50); Neutrophils % (auto) 60.5 %; Platelet Count 216 K/uL (130-400); RDW Coefficient of Variation 12.3 % (11.5-14.5); RDW Standard Deviation 41.8 fL (36.4-46.3)
[2024-03-11 16:17] LABS: iSTAT Creatinine 0.9 mg/dl (0.6-1.3); iSTAT Hemoglobin 13.6 g/dl (12.0-16.0); iSTAT Ionized Calcium 1.19 mmol/l (1.12-1.32); iSTAT Potassium 3.6 mmol/L (3.3-5.0)
[2024-03-11 16:21] LABS: Albumin Level 4.9 gm/dl (3.4-5.0); Bilirubin,Total 0.4 mg/dl (0.2-1.0); Calcium 10.3 mg/dl (8.6-10.3); Magnesium 2.2 mg/dl (1.7-2.4); Potassium 3.6 mmol/L (3.5-5.1)
[2024-03-11] MEDS: OPTIRAY 320 125ml IV ONE (16:25)
[2024-03-11 16:27] LABS: Albumin Globulin Ratio 1.5 (0.9-2); BUN Creatinine Ratio 15.3 (10-20); Creatinine Clr Calc Pharmacy 55.6 ml/min; Est GFR (African American) 76.1 ml/min; Est GFR (Non-African American) 65.6 ml/min; Globulin 3.2 gm/dl (2.5-4.0); Total Protein 8.1 gm/dl (6.0-8.3)
[2024-03-11 16:33] LABS: Troponin I High Sensitivity 4.7 pg/ml (0-14)
[2024-03-11 16:36] LABS: Partial Thromboplastin Time 27 Seconds (21-31); Prothrombin Time 11.3 Seconds (9.0-12.0)
[2024-03-11 16:42] LABS: Thyroid Stimulating Hormone 0.792 uIu/ml (0.300-4.500)
--- NOTE | 2024-03-11 16:44 | CT Scan Report ---
CT OF THE ABDOMEN AND PELVIS WITH CONTRAST CLINICAL HISTORY: chest and abdominal pain, eval dissection etc COMPARISON STUDY: CT of the abdomen and pelvis April 04, 2021. CTA of the abdomen and pelvis Octo 2020. TECHNIQUE: Following IV administration of 119 mL of Optiray, axial images of the abdomen and pelvis w ere obtained from the lung bases to the proximal femurs. Images were reviewed in the axial, sagittal, and coronal planes. IV contrast was administered without complication. Automated exposure control w as utilized for the study. A dose lowering technique was utilized adhering to the principles of ALAKamilah Ridley. FINDINGS: Please note that the CTA of the chest will be reported separately. No pneumatosis, free air or portal venous gas is present. There is moderate plaque within the abdominal aorta and branch vess els. There is no abdominal aortic dissection or aneurysm. Major branch vessels are patent. Water atte nuation left upper pole renal lesion represents a cyst. Liver, spleen, adrenal glands, right kidney a nd pancreas are unremarkable. There is no biliary or pancreatic ductal dilatation. The appendix is no rmal. There is sigmoid diverticulosis without evidence for acute diverticulitis. There are no fluid c ollections within the abdomen or pelvis. There is no lymphadenopathy. IMPRESSION: 1. No acute process within the abdomen or pelvis. 2. No bowel obstruction. No bowel wall thickening. 3. Sigmoid diverticulosis. No evidence for acute diverticulitis. 4. Moderate plaque within the abdominal aorta and branch vessels. No abdominal aortic dissection. Pat ent vessels. ACT 112: Negative or not required by law. Electronically signed by: Jerson Gusman M.D. 03/11/2024 4:41 PM
--- NOTE | 2024-03-11 16:49 | CT Scan Report ---
CT head/brain wo con CLINICAL HISTORY: 78 years-old Female with HTN. Acute hypertension with headache TECHNIQUE: Multiple axial CT images of the head were obtained without contrast. A dose lowering tech nique was utilized adhering to the principles of ALARA. CT DOSE: 3061.2 mGy.cm COMPARISON: 07/25/2023 FINDINGS: No acute intracranial hemorrhage, midline shift, intracranial mass, hydrocephalus, territorial ischem ia or abnormal extra-axial collection. Involutional changes with chronic microvascular ischemic disea se. The calvarium is intact. The paranasal sinuses, mastoid air cells, and middle ear cavities are clear . IMPRESSION: No acute intracranial abnormality. ACT 112: Negative or not required by law. The above report was generated using voice recognition software. It may contain grammatical, syntax o r spelling errors. Electronically signed by: Houston Reich M.D. 03/11/2024 4:46 PM
--- NOTE | 2024-03-11 16:57 | CT Scan Report ---
CT angio chest dissec wo/w con HISTORY: 78 years-old Female with chest pain, eval dissection. Acute chest pain with shortness of b reath TECHNIQUE: Multiple CTA images of the chest were obtained with and without the intravenous administra tion of 119 ml Optiray. Coronal and sagittal MIPS were obtained from the axial data set and were sub mitted for review. All measurements were obtained according to NASCET criteria. A dose lowering tech nique was utilized adhering to the principles of ALARA. COMPARISON: CT abdomen and pelvis of same day, CTA chest 09/22/2022 FINDINGS: CTA: There is adequate opacification of the pulmonary arteries to the level of the subsegmental branches w ithout convincing evidence of acute pulmonary embolism. Moderate atherosclerosis of the thoracic aort a without aneurysm or dissection. 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 No hem atoma. No mediastinal hemorrhage.Heart size is normal. CT CHEST: No dominant thyroid nodule is seen. No pathologically adenopathy by CT size criteria. . Minimal biapi marah pleural parenchymal scarring. Stable small nodule versus lymph node within the left upper axilla measuring 10 mm on image 108 series 9, likely benign. There is no pneumothorax, pleural effusion or f ocal airspace consolidation. The imaged upper abdominal structures are unremarkable. Mild midthoracic dextroscoliosis. The osseou s structures appear intact. IMPRESSION: 1. Moderate atherosclerosis of the thoracic aorta without aneurysm or dissection. 2. No pleural effusion, airspace consolidation or lymphadenopathy. ACT 112: Negative or not required by law. The above report was generated using voice recognition software. It may contain grammatical, syntax o r spelling errors. Electronically signed by: Houston Reich M.D. 03/11/2024 4:55 PM
[2024-03-11] MEDS: FAMOTIDINE 20MG IV PUSH 20 MG/5 ML SYR IV STA (17:15)
[2024-03-11] MEDS: ACETAMINOPHEN 1,000 MG/100 ML VIAL IV STA (17:34)
--- NOTE | 2024-03-11 19:08 | Emergency Department Note ---
ED Visit Note I was consulted by the Advanced Practice Provider. I personally pproved the management plan and take responsibility for the patient management. This includes the aspects of: -History/Physical -MDM -I independently interpreted the following studies:Studies and results .
[2024-03-11] MEDS: hydrALAZINE HCL 20 MG/ML VIAL IV ONE ×2 (19:12→20:14)
--- NOTE | 2024-03-11 21:15 | History & Physical Report ---
Date of Service March 11, 2024 Assessment & Plan (1) Costochondritis, acute: (2) Chronic reflux esophagitis: (3) HTN (hypertension): Plan This is a 78 y/o f w/ PMHx of HTN, GERD, vertigo, vitamin B12 deficiency, essential tremor, and hx of LE DVT who was admitted due to elevated BP and chest pain. Uncontrolled HTN - Patient was previously on Metoprolol for BP control, but was recently changed to Propranolol 60 mg due to tremors - States that her BP at home ranges from 130s-150s systolic w/ occasional reads in 170s systolic - No known hx of kidney disease, thyroid disease, or substance use - Does not believe she has LEVI - Was noted to have BP in 200s in her neurologist's office today and sent to ED; BP reached 230 systolic while in the ED - S/p 2 doses of Hydralazine 5 mg with decrease in BP to 180s systolic - TSH unremarkable. Free T4 ordered and pending. - Will admit to PCU/Tele for monitoring given chest pain patient had experienced - Will keep home Propranolol as she has been using, but if BP poorly controlled despite this, may consider adding another agent such as an AMANDEEP inhibitor or ARB if appropriate to help achieve better control - Low salt and HH diet Chest pain - Troponins negative x2 - Patient states she felt the greatest relief after dose of Pepcid IV - Chest pain reproducible with palpation of left chest Possible that chest pain could be related to costochondritis in combination with esophagitis sxs given improvement w/ pepcid IV However, cannot r/o mild ischemic changes w/ elevated blood pressures given mild EKG changes when BP was in 200s versus repeat EKG after decreasing to 180s. - TTE ordered Chronic esophagitis - Possibly this contributed to her chest pain as detailed above - Continue home Pepcid - Will add daily Protonix 40 mg Hx of blood clots in LE - Continue home Eliquis 5 mg Overnight LE spasms - Patient w/ history of LE spasms for which she is seeing a neurologist - Continue home Gabapentin Dispo: PCU/ Tele Diet: HH, low sodium VTE ppx: Eliquis Code Status: Full History of Present Illness Chief Complaint: Chest pain, HTN Primary Care Provider: Braulio Kaur MD This is a 78 y/o f w/ PMHx of HTN, GERD, vertigo, vitamin B12 deficiency, essential tremor, and hx of LE DVT who was brought to the ED by EMS from her neurologist's office due to elevated BP. She was noted to have blood pressure w/ systolic in the 200s. Along with this elevated BP, patient was also referring sternal chest pain w/ radiation to left side and left infra-scapular region. She describes the pain as coming on suddenly, stabbing in quality. No associated diaphoresis, N/V, weakness, lightheadedness, or any other symptom. She has had similar pain in the past and in some of those episodes has gone to the ED due to this pain, and was then discharged due to normal labs and was told this was related to reflux or anxiety. Patient does have hx of elevated BP at home that have ranged between 130-150 systolic and occasionally has reached 170s systolic. She was previously on Metoprolol as management but was then changed to Propranolol due to spasms and jerking she feels during the night. She is compliant w/ taking her medications. Re-started Gabapentin 200 mg last night. Denies substance use and is a non-smoker. Denies history of heart disease or cardiac catheterizations. ED Course: given Hydralazine 5 mg x2 doses, given Pepcid 20 mg IV x1 dose Labs/Imaging: CBC w/o leukocytosis, Hgb at baseline w/ 12.5, plt of 216. CMP w/o electrolytes abnormalities and renal markers wnl (Cr of 0.85). LFTs unremarkable. Troponins negative x2. TSH of 0.792. U/A unremarkable. CTAP w/o acute process, noted diverticulosis w/o diverticulitis, no AAA and no abdominal aortic dissection, patent vessels. Chest CTA w/o thoracic aortic aneurysm or dissection, no acute disease. Brain CT w/o acute intracranial abnormality. Medical History: [Reviewed] Medications: [Reviewed] Surgical History: [Reviewed] Family history: [Reviewed] Allergies: [Reviewed] Social History: [Reviewed] Allergies Allergy/AdvReac Type Severity Reaction Status Date / Time Sulfa (Sulfonamide Allergy Intermediate LIPS Verified 03/11/24 15:42 Antibiotics) SWELLING amlodipine [From [facility]] Allergy Unknown Unknown Verified 03/11/24 15:42 sertraline Allergy Unknown Tremors Verified 03/11/24 23:42 garlic Allergy Gastrointestinal Verified 03/11/24 15:42 Upset milk Allergy Unknown Verified 03/11/24 15:42 erythromycin base AdvReac Mild DIZZY Verified 03/11/24 15:42 propoxyphene AdvReac Mild DIZZINESS Verified 03/11/24 15:42 Home Medications Medication Instructions Recorded Confirmed Type loratadine 10 mg tablet (Claritin) 10 mg PO DAILY PRN allergies 11/11/18 03/11/24 History meclizine 25 mg tablet 25 mg PO TID PRN Vertigo 11/11/18 03/11/24 History lidocaine 4 % topical patch 1 patch topical DAILY PRN Pain 04/20/21 03/11/24 History (Lidocaine Pain Relief) cholecalciferol (vitamin D3) 25 25 mcg PO QDL 11/15/21 03/11/24 History mcg (1,000 unit) capsule (Vitamin D3) ipratropium bromide 21 mcg (0.03 2 spray intranasal BID PRN Allergy 11/15/21 03/11/24 History %) nasal spray Symptoms ondansetron HCl 4 mg tablet 4 mg PO Q8H PRN nausea and 08/16/22 03/11/24 Rx vomiting #20 tabs albuterol sulfate 90 mcg/actuation 2 puffs inhalation Q6H PRN 07/26/23 03/11/24 History aerosol inhaler shortness of breath or wheezing nystatin 100,000 unit/gram topical 1 applic topical BID PRN irritation 07/26/23 03/11/24 History powder Saccharomyces boulardii 250 mg 250 mg PO DAILY 09/12/23 03/11/24 History capsule (Daily Probiotic (S. boulardii)) mecobalamin (vitamin B12) 500 mcg 500 mcg PO DAILY 10/09/23 03/11/24 History chewable tablet propranolol 60 mg capsule,24 60 mg PO DAILY #90 caps 10/16/23 03/11/24 Rx hr,extended release apixaban 5 mg tablet (Eliquis) 5 mg PO BID #180 tabs 01/20/24 03/11/24 Rx famotidine 20 mg tablet 20 mg PO BID 03/11/24 03/11/24 History gabapentin 100 mg capsule 200 mg (2 x 100 mg) PO HS Pain #60 03/11/24 03/11/24 Rx caps multivitamin with minerals 1 tab PO DAILY 03/11/24 03/11/24 History (Multiple Vitamin-Minerals tablet) vitamin B complex 1 tab PO DAILY 03/11/24 03/11/24 History Past Med/Surg History Problem List (System 03/11/24 @ 15:42 by Nancy Ernandez) Vertigo Dysphagia LPRD (laryngopharyngeal reflux disease) Bilateral tinnitus Sensorineural hearing loss (SNHL) of both ears Vitamin B12 deficiency Myoclonia Essential hypertension Occipital neuralgia Lumbar degenerative disc disease Diarrhea Depression with anxiety Current use of proton pump inhibitor HTN (hypertension) GERD (gastroesophageal reflux disease) (Chronic) HTN (hypertension) Palpitations Asthma (Acute) Abdominal pain, chronic, epigastric (Acute) TMJ arthralgia (Acute) Lumbar radiculopathy (Acute) Internal hemorrhoids (Acute) Diverticulosis (Acute) Chronic reflux esophagitis (Chronic) Biliary dyskinesia (Acute) Arthritis of hand (Acute) Allergic rhinitis (Acute) Esophageal dysphagia Anemia Pain of left calf (Acute) Family history of blood clots Radicular pain in right arm (Chronic) Tinea pedis (Acute) Costochondritis, acute Cervical radiculopathy Cervical disc disease Small intestinal bacterial overgrowth (SIBO) Osteopenia Disorder of rotator cuff Hearing loss Medical History Greater tuberosity of humerus fracture (01/15/23) Multiple pulmonary emboli Radicular pain in right arm Back problem Sciatica Abdominal pain Nausea GERD (gastroesophageal reflux disease) TMJ (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 joint disorder) History of migraine Anemia Cough Memory loss Mild depression Recent skin changes Sinusitis Acute hypokalemia Chest pain Anemia History of depression Surgical History History of D&C History of tonsillectomy History of partial hysterectomy History of esophagogastroduodenoscopy (EGD) History of colonoscopy Family History Mother Diabetes Alzheimer disease Hypertension Family/Other Diabetes Sister Diabetes Hypertension Brother Hypertension Father Lung cancer Cancer Other No family history of adverse response to anesthesia No family history of bleeding disorder Denies family history of Ovarian cancer Prostate cancer Myocardial infarction Breast cancer Colorectal cancer Social History (System 03/11/24 @ 15:42 by Nancy Ernandez) Smoking Status: Never smoker Second Hand Exposure: No; Do You Dip or Chew Tobacco: No; Tobacco Cessation Education Requested by Patient: No Hx Alcohol Use: No Hx Substance Use: No Preferred Language: Bermudian Communication Ability: Effective Visual Impairment: No Limitations Hearing Ability: Normal Hot Cell Technician Required: No Beliefs That Will Affect Care: None marital status: Current Living Situation: Spouse Current Living Situation Comment: lives at home with current occupational status: retired 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 Other Information That Helps Us Care for You: No Feels Safe at Home: Yes Safety Concerns: Feels Safe At This Time Childhood Exposure to Second-Hand Smoke: Yes Dental Care, Regularly: Yes Physical Activity Frequency: 5-6 Times per Week Seatbelt Use: always Sunscreen Use: No Assistive Devices: Glasses Review of Systems Review of Systems: As per HPI Physical Exam Physical Exam: GENERAL: AAOx3, afebrile, NAD HEAD: AT and NC EYES: DANYELLE, EOM intact CHEST: symmetric chest expansions w/ respiration, no visible deformities or hematomas/lesions, pain on palpation of left chest that is reproducible of pain she had been experiencing, no pain on palpation of right side of chest or over sternum CARDIO: RRR, slight murmur appreciated on left sternal border PULMONARY: CTA b/l, normal respiratory effort, no respiratory distress GI: soft, nontender, nondistended EXTREMITIES: no swelling or calf tenderness in b/l LE SKIN: no rashes Results & Data Results & Data Vital Signs (Past 12 Hours) Vital Signs Temp Pulse Pulse Resp BP BP Pulse Ox 03/11/24 21:03 70 20 187/98 H 96 03/11/24 19:30 60 03/11/24 19:03 60 20 208/88 H 97 03/11/24 17:25 66 20 230/97 H 92 03/11/24 16:04 97 03/11/24 15:33 66 03/11/24 15:31 36.9 C 70 20 207/103 H 95 03/11/24 15:31 96 03/11/24 15:31 36.9 C 70 18 207/103 H 96 O2 Del Method O2 Flow Rate 03/11/24 21:03 Room Air 03/11/24 19:30 03/11/24 19:03 Room Air 03/11/24 17:25 Room Air 08/14/24 16:04 Room Air 03/11/24 15:33 03/11/24 15:31 Room Air 03/11/24 15:31 Room Air 0 03/11/24 15:31 Room Air Supervising Physician Co-Signing Physician Notes Attending addendum: I have physically seen this patient, have supervised the medical residents activities, and agree with the H&P unless as otherwise noted. Assessment and Plan: Uncontrolled hypertension/chest pain- Patient was referred to the emergency department today after having blood pressure elevated to systolic over 200 in the neurology office She had been changed from metoprolol to propranolol ER 60 mg daily on 10/16/2023 to improve control of tremors Received hydralazine 5 mg IV x 2 from the ED for blood pressure 200s/90s with heart rate 60, with some improvement in systolic blood pressure to 180s Add lisinopril 10 mg daily The patient will be admitted to telemetry for serial cardiac enzymes, serial EKG's, cardiac rhythm monitoring and a 2-D echocardiogram with Dopplers. Initial troponin 4.7, with follow-up 4.8, with next follow-up 5.4 Differential including but not limited to: Costochondritis, due to some reproducibility of the pain, esophagitis due to some improvement with famotidine IV, asthma, and anxiety Chronic esophagitis- Patient did notice some improvement after receiving famotidine IV from the ED Continue daily Protonix 40 mg Pulmonary emboli history- Continue Eliquis Essential tremor, with myoclonus with anxiety- Continue gabapentin, being managed by neurology Resident Activity Tracking Resident Involvement: Resident Care Provided Care Provided: Adult [facility] Medicine
[2024-03-11] MEDS ORDERED: ALBUTEROL HFA 8 GM INHALER INH PRN (22:55)
[2024-03-11] MEDS ORDERED: POLYETHYLENE (MIRALAX) 17 GM PACK PO PRN (22:55)
[2024-03-11] MEDS ORDERED: ONDANSETRON INJ 2 MG/ML 2 ML VIAL IV PRN (22:55)
[2024-03-11] MEDS ORDERED: ACETAMINOPHEN 325 MG TAB PO PRN (22:55)
[2024-03-11 23:15] VITALS: RESP 18
[2024-03-12 03:36] VITALS: O2SAT 98
--- NOTE | 2024-03-12 05:47 | Billing Data ---
Date of Service March 12, 2024 Coding Level of Care Code 09648 INT INP/OBS CARE
[2024-03-12] MEDS: lisinopril 10 MG TAB PO STA (06:01)
[2024-03-12 07:44] LABS: Eosinophils # (auto) 0.07 K/uL (0.00-0.50); Eosinophils % (auto) 2.3 %; Hematocrit (blood only) 33.7 % (37.0-47.0); Hemoglobin 11.3 g/dl (12.0-16.0); Immature Granulocytes # (auto) 0.01 K/uL (0.01-0.20); Immature Granulocytes % (auto) 0.3 %; Lymphocytes # (auto) 0.99 K/uL (1.20-3.40); Lymphocytes % (auto) 32.5 %; Mean Corpuscular Hemoglobin 30.4 pg (25.0-34.0); Mean Corpuscular Hgb Conc 33.5 g/dL (32.0-36.0); Mean Corpuscular Volume 90.6 fL (80.0-100.0); Mean Platelet Volume 10.8 fL (9.4-12.4); Monocytes # (auto) 0.29 K/uL (0.11-0.59); Monocytes % (auto) 9.5 %; Neutrophils # (auto) 1.69 K/uL (1.40-6.50); Neutrophils % (auto) 55.4 %; Platelet Count 198 K/uL (130-400); RDW Coefficient of Variation 12.5 % (11.5-14.5); RDW Standard Deviation 41.2 fL (36.4-46.3); Red Blood Count 3.72 M/uL (4.20-5.40); White Blood Count 3.05 K/ul (4.8-10.8)
[2024-03-12 08:08] LABS: Albumin Globulin Ratio 1.6 (0.9-2); BUN Creatinine Ratio 12.2 (10-20); Bilirubin,Total 0.5 mg/dl (0.2-1.0); Calcium 9.4 mg/dl (8.6-10.3); Creatinine Clr Calc Pharmacy 61.3 ml/min; Est GFR (African American) 79.4 ml/min; Est GFR (Non-African American) 68.5 ml/min; Globulin 2.5 gm/dl (2.5-4.0); Potassium 3.6 mmol/L (3.5-5.1); Total Protein 6.5 gm/dl (6.0-8.3)
[2024-03-12 08:25] LABS: T4 Free Thyroxine 0.87 ng/dl (0.61-1.60)
[2024-03-12] MEDS: PANTOprazole 40 MG TAB PO SCH (09:00)
[2024-03-12] MEDS: APIXABAN 5 MG TABLET PO SCH (09:00)
[2024-03-12] MEDS: FAMOTIDINE 20 MG TAB PO SCH (09:00)
[2024-03-12] MEDS: PROPRANOLOL HCL 60 MG LA CAP PO SCH (09:00)
[2024-03-12] MEDS: CHOLECALCIFEROL 25 MCG (1000 UNITS) TAB PO SCH (09:02)
--- NOTE | 2024-03-12 11:14 | XCELERA ---
[id number] [id number]
[2024-03-12 11:57] VITALS: BP 145/69; TEMP 98.1
--- NOTE | 2024-03-12 11:57 | Electrocardiogram Report ---
Test Reason : Blood Pressure : */* mmHG Vent. Rate : 63 BPM Atrial Rate : 63 BPM P-R Int : 172 ms QRS Dur : 84 ms QT Int : 410 ms P-R-T Axes : 57 26 42 degrees QTcB Int : 419 ms Normal sinus rhythm Normal ECG When compared with ECG of 25-Jul-2023 18:48, No significant change was found Confirmed by Braulio Horan ([id number]) on 03/12/2024 11:57:36 AM Referred By: Confirmed By: Braulio Horan
--- NOTE | 2024-03-12 12:03 | Electrocardiogram Report ---
Test Reason : Blood Pressure : */* mmHG Vent. Rate : 71 BPM Atrial Rate : 71 BPM P-R Int : 188 ms QRS Dur : 82 ms QT Int : 414 ms P-R-T Axes : 55 12 16 degrees QTcB Int : 449 ms Normal sinus rhythm Left atrial enlargement Abnormal ECG When compared with ECG of 11-Mar-2024 15:31, (unconfirmed) No significant change was found Confirmed by Braulio Horan ([id number]) on 03/12/2024 12:03:01 PM Referred By: Sabine Case Confirmed By: Braulio Horan
[2024-03-12 15:21] VITALS: PULSE 66
--- NOTE | 2024-03-12 17:47 | Discharge Summary ---
Discharge Summary Date of Service March 12, 2024 Principal Dx & Hospital Course #1 = Principal Diagnosis (1) HTN (hypertension): (2) Costochondritis, acute: Plan Uncontrolled HTN - Patient was previously on Metoprolol for BP control, but was recently changed to Propranolol 60 mg due to tremors - States that her BP at home ranges from 130s-150s systolic w/ occasional reads in 170s systolic - No known hx of kidney disease, thyroid disease, or substance use - Does not believe she has LEVI - Was noted to have BP in 200s in her neurologist's office today and sent to ED; BP reached 230 systolic while in the ED - 2 doses of Hydralazine 5 mg in ED with decrease in BP to 180s systolic - TSH unremarkable. Free T4 WNL. - Continue propranolol - Started Lisinopril 10 mg daily. Chest pain - Troponins negative x2 - Patient stated she felt the greatest relief after dose of Pepcid IV - Chest pain reproducible with palpation of left chest Possible that chest pain could be related to costochondritis in combination with esophagitis sxs given improvement w/ pepcid IV - Echo revealed no regional wall abnormalities. EF 60-65%. - Chest pain completely resolved - suspect it was due to elevated BP and esophagitis. Chronic esophagitis - Possibly this contributed to her chest pain as detailed above - Continue home Pepcid - Started Protonix 40 mg daily Hx of blood clots in LE - Continue home Eliquis 5 mg Overnight LE spasms - Patient w/ history of LE spasms for which she is seeing a neurologist - Continue home Gabapentin Code Status: Full Notes For Next Care Provider Patient presented with severely elevated hypertension with systolic pressures in the 200s with some associated chest pain. Cardiac workup was negative. Suspect chest pain was due to combination of elevated blood pressure and esophagitis. Blood pressure was controlled and returned to baseline. Follow-up with PCP. Medication Changes From Visit Started lisinopril 10 mg daily Started Protonix 40 mg daily Admission HPI Per Admitting Provider This is a 78 y/o f w/ PMHx of HTN, GERD, vertigo, vitamin B12 deficiency, essential tremor, and hx of LE DVT who was brought to the ED by EMS from her neurologist's office due to elevated BP. She was noted to have blood pressure w/ systolic in the 200s. Along with this elevated BP, patient was also referring sternal chest pain w/ radiation to left side and left infra-scapular region. She describes the pain as coming on suddenly, stabbing in quality. No associated diaphoresis, N/V, weakness, lightheadedness, or any other symptom. She has had similar pain in the past and in some of those episodes has gone to the ED due to this pain, and was then discharged due to normal labs and was told this was rel ated to reflux or anxiety. Patient does have hx of elevated BP at home that have ranged between 130-150 systolic and occasionally has reached 170s systolic. She was previously on Metoprolol as management but was then changed to Propranolol due to spasms and jerking she feels during the night. She is compliant w/ taking her medications. Re-started Gabapentin 200 mg last night. Denies substance use and is a non-smoker. Denies history of heart disease or cardiac catheterizations. ED Course: given Hydralazine 5 mg x2 doses, given Pepcid 20 mg IV x1 dose Labs/Imaging: CBC w/o leukocytosis, Hgb at baseline w/ 12.5, plt of 216. CMP w/o electrolytes abnormalities and renal markers wnl (Cr of 0.85). LFTs unremarkable. Troponins negative x2. TSH of 0.792. U/A unremarkable. CTAP w/o acute process, noted diverticulosis w/o diverticulitis, no AAA and no abdominal aortic dissection, patent vessels. Chest CTA w/o thoracic aortic aneurysm or dissection, no acute disease. Brain CT w/o acute intracranial abnormality. Medical History: [Reviewed] Medications: [Reviewed] Surgical History: [Reviewed] Family history: [Reviewed] Allergies: [Reviewed] Social History: [Reviewed] Admission Exam Per Admitting Provider GENERAL: AAOx3, afebrile, NAD HEAD: AT and NC EYES: DANYELLE, EOM intact CHEST: symmetric chest expansions w/ respiration, no visible deformities or hematomas/lesions, pain on palpation of left chest that is reproducible of pain she had been experiencing, no pain on palpation of right side of chest or over sternum CARDIO: RRR, slight murmur appreciated on left sternal border PULMONARY: CTA b/l, normal respiratory effort, no respiratory distress GI: soft, nontender, nondistended EXTREMITIES: no swelling or calf tenderness in b/l LE SKIN: no rashes Discharge Exam General: No acute distress, nondiaphoretic, well-developed, well-nourished. Skin: The skin was without rashes, erythema, edema, or bruising. Cardiac: Regular rate and rhythm without murmurs gallops or rubs. Pulm: Clear to auscultation bilaterally without wheezes, rales or rhonchi. No retractions or accessory muscle use. Abdominal: Positive bowel sounds x 4. Soft, nontender, without masses or organomegaly. No guarding or rebound tenderness. Neuro: A&O x3. No focal neurological deficits. Discharge Plan Discharge Items Patient Disposition: Home - Self-Care Reason For Visit: CHEST PAIN, HTN Discharge Diagnosis: Hypertensive urgency, chest painresolved Condition on Discharge: Good Activity: Resume your previous activity Non-emergency contact: Primary Care Provider Call non-emergency contact if: you have any medication questions and your symptoms worsen Follow-up/Referrals: Braulio Kaur MD [Primary Care Provider] - 03/23/24 1:00 pm (With Abbi Taylor PA-C) Diet: Heart Healthy and Low Sodium (2gm) Addtl Attending Provider Instructions: Mrs. Escalante, You were admitted to the hospital because as very elevated blood pressure as well as chest pain. Your blood pressure is now controlled and back to your baseline. In regards to a cardiac workup, this was all negative. I suspect that your chest pain is a combination between the elevated blood pressure as well as important your chronic esophagitis. Upon discharge from the hospital: * Take lisinopril 10 mg daily. This is to help control your blood pressure better. * Take Protonix 40 mg daily. This is to help control your chronic esophagitis. * Follow-up with your PCP. Your appointment is scheduled for 03/23/2024 at 1:00 PM. * Please check your blood pressure at home 1-2 times per day and write it down to bring to your PCP appointment. * Continue all of your other home medications as prescribed. Please return to the hospital if you experience any of the following: Chest pain/tightness/pressure, heart palpitations, shortness of breath, difficulty breathing, lightheadedness, dizziness, passing out. It was a pleasure taking care of you while you were in the hospital, Leah Rod PA-C Pending Studies at Discharge: No Stand-Alone Forms: [facility], Smoking Cessation Medications and DC Order Prescriptions: New pantoprazole 40 mg Tablet,Delayed Release (Dr/Ec) 40 mg PO DAILY Qty: 30 0RF lisinopril 10 mg Tablet 10 mg PO QAM Qty: 30 0RF Continued ondansetron HCl 4 mg tablet 4 mg PO Q8H PRN (Reason: nausea and vomiting) Qty: 20 1RF Eliquis 5 mg tablet 5 mg PO BID Qty: 180 1RF mecobalamin (vitamin B12) 500 mcg tablet,chewable 500 mcg PO DAILY Saccharomyces boulardii [Daily Probiotic (S. boulardii)] 250 mg capsule 250 mg PO DAILY ipratropium bromide 21 mcg (0.03 %) spray,non-aerosol 2 spray intranasal BID PRN (Reason: Allergy Symptoms) Rx Instructions: administer into each nostril propranolol 60 mg capsule,extended release 24 hr 60 mg PO DAILY Qty: 90 3RF gabapentin 100 mg capsule 200 mg PO HS Qty: 60 6RF meclizine 25 mg Tablet 25 mg PO TID PRN (Reason: Vertigo) loratadine [Claritin] 10 mg Tablet 10 mg PO DAILY PRN (Reason: allergies) nystatin 100,000 unit/gram powder 1 applic topical BID PRN (Reason: irritation) albuterol sulfate 90 mcg/actuation HFA aerosol inhaler 2 puffs INH Q6H PRN (Reason: shortness of breath or wheezing) lidocaine [Lidocaine Pain Relief] 4 % Adhesive Patch,Medicated 1 patch TOPICAL DAILY PRN (Reason: Pain) Patient Comments: pt doesnt have 1 on currently. cholecalciferol (vitamin D3) [Vitamin D3] 25 mcg (1,000 unit) capsule 25 mcg PO QDL famotidine 20 mg tablet 20 mg PO BID Multiple Vitamin-Minerals Tablet 1 tab PO DAILY vitamin B complex Tablet 1 tab PO DAILY Discharge Orders: Discharge Order (Routine); Ordered 03/12/24 Ordered By: Leah Rod Admission Data Admit Date/Time: 03/11/24 21:32 Attending Provider: Robbie Lu Admit Provider: Lisa Dubon Primary Care Provider: Braulio Kaur Other Providers: Frankie Jha Other Interventions: Discharge Summary Assessment (RN) Last Done: 03/12/24 15:20 Hospital Stay Data Consultations 03/11/24 20:44 ED Decision to Admit Stat Diagnostic Imagining Performed Laboratory Results WBC 3.05 K/ul (4.8-10.8) L 03/12/24 07:06 RBC 3.72 M/uL (4.20-5.40) L 03/12/24 07:06 Hgb 11.3 g/dl (12.0-16.0) L 03/12/24 07:06 POC Hgb 13.6 g/dl (12.0-16.0) 03/11/24 16:04 Hct 33.7 % (37.0-47.0) L 03/12/24 07:06 POC Hct 40 % (37-47) 03/11/24 16:04 MCV 90.6 fL (80.0-100.0) 03/12/24 07:06 MCH 30.4 pg (25.0-34.0) 03/12/24 07:06 MCHC 33.5 g/dL (32.0-36.0) 03/12/24 07:06 RDW Std Deviation 41.2 fL (36.4-46.3) 03/12/24 07:06 RDW Coeff of Yair 12.5 % (11.5-14.5) 03/12/24 07:06 Plt Count 198 K/uL (130-400) 03/12/24 07:06 MPV 10.8 fL (9.4-12.4) 03/12/24 07:06 Immature Gran % (Auto) 0.3 % 03/12/24 07:06 Neut % (Auto) 55.4 % 03/12/24 07:06 Lymph % (Auto) 32.5 % 03/12/24 07:06 [place] % (Auto) 9.5 % 03/12/24 07:06 Eos % (Auto) 2.3 % 03/12/24 07:06 Baso % (Auto) 0.0 % 03/12/24 07:06 Neut # (Auto) 1.69 K/uL (1.40-6.50) 03/12/24 07:06 Lymph # (Auto) 0.99 K/uL (1.20-3.40) L 03/12/24 07:06 [place] # (Auto) 0.29 K/uL (0.11-0.59) 03/12/24 07:06 Eos # (Auto) 0.07 K/uL (0.00-0.50) 03/12/24 07:06 Baso # (Auto) 0.00 K/uL (0.00-0.20) 03/12/24 07:06 Immature Gran # (Auto) 0.01 K/uL (0.01-0.20) 03/12/24 07:06 PT 11.3 Seconds (9.0-12.0) 03/11/24 15:54 INR 1.0 (0.9-1.1) 03/11/24 15:54 APTT 27 Seconds (21-31) 03/11/24: PTT Ratio 1.0 03/11/24 15:54 POC Sodium 141 mmol/L (135-144) 03/11/24 16:04 Sodium 141 mmol/L (136-145) 03/12/24 07:06 POC Potassium 3.6 mmol/L (3.3-5.0) 03/11/24 16:04 Potassium 3.6 mmol/L (3.5-5.1) 03/12/24 07:06 POC Chloride 105 mmol/L (101-112) 03/11/24 16:04 Chloride 106 mmol/L (98-107) 03/12/24 07:06 Carbon Dioxide 28 mmol/L (21-32) 03/12/24 07:06 POC Total CO2 24 mmol/L (24-31) 03/11/24 16:04 Anion Gap 7 (3-11) 03/12/24 07:06 POC Anion Gap 16.0 mmol/L (16-25) 03/11/24 16:04 POC BUN 13 mg/dl (7-18) 03/11/24 16:04 BUN 10 mg/dl (6-23) 03/12/24 07:06 Creatinine 0.82 mg/dl (0.6-1.2) 03/12/24 07:06 POC Creatinine 0.9 mg/dl (0.6-1.3) 03/11/24 16:04 Est Cr Clr Drug Dosing 61.3 ml/min 03/12/24 07:06 Est GFR ( Amer) 79.4 ml/min 03/12/24 07:06 Est GFR (Non-Af Amer) 68.5 ml/min 03/12/24 07:06 BUN/Creatinine Ratio 12.2 (10-20) 03/12/24 07:06 Glucose 88 mg/dl (70-99(Fasting)) 03/12/24 07:06 POC Glucose (other) 80 mg/dl (70-99) 03/11/24 16:04 Calcium 9.4 mg/dl (8.6-10.3) 03/12/24 07:06 POC Ioniz Calcium [place] 1.19 mmol/l (1.12-1.32) 03/11/24 16:04 Magnesium 2.2 mg/dl (1.7-2.4) 03/11/24 15:54 Total Bilirubin 0.5 mg/dl (0.2-1.0) 03/12/24 07:06 AST 12 U/L (13-39) L 03/12/24 07:06 ALT 8 U/L (7-52) 03/12/24 07:06 Alkaline Phosphatase 64 U/L (34-104) 03/12/24 07:06 Troponin I High Sens 5.4 pg/ml (0-14) 03/11/24 21:54 Total Protein 6.5 gm/dl (6.0-8.3) 03/12/24 07:06 Albumin 4.0 gm/dl (3.4-5.0) 03/12/24 07:06 Globulin 2.5 gm/dl (2.5-4.0) 03/12/24 07:06 Albumin/Globulin Ratio 1.6 (0.9-2) 03/12/24 07:06 Lipase 29 U/L (11-82) 03/11/24 15:54 TSH 0.792 uIu/ml (0.300-4.500) 03/11/24 15:54 Free T4 0.87 ng/dl (0.61-1.60) 03/12/24 07:06 Urine Color Yellow 03/11/24 16:04 Urine Appearance Clear (Clear) 03/11/24 16:04 Urine pH 8.0 (4.5-7.5) H 03/11/24 16:04 Ur Specific [place] 1.012 (1.000-1.030) 03/11/24 16:04 Urine Protein Negative (Negative) 03/11/24 16:04 Urine Glucose (UA) Negative (Negative) 03/11/24 16:04 Urine Ketones Negative (Negative) 03/11/24 16:04 Urine Blood Negative (Negative) 03/11/24 16:04 Urine Nitrite Negative (Negative) 03/11/24 16:04 Urine Bilirubin Negative (Negative) 03/11/24 16:04 Urine Urobilinogen Negative (Negative) 03/11/24 16:04 Ur Leukocyte Esterase Negative (Negative) 03/11/24 16:04 Impressions Abdomen/Pelvis CT 03/11/24 15:47 CT OF THE ABDOMEN AND PELVIS WITH CONTRAST CLINICAL HISTORY: chest and abdominal pain, eval dissection etc COMPARISON STUDY: CT of the abdomen and pelvis April 04, 2021. CTA of the abdomen and pelvis May 27, 2021. TECHNIQUE: Following IV administration of 119 mL of Optiray, axial images of the abdomen and pelvis were obtained from the lung bases to the proximal femurs. Images were reviewed in the axial, sagittal, and coronal planes. IV contrast was administered without complication. Automated exposure control was utilized for the study. A dose lowering technique was utilized adhering to the principles of ALARA. FINDINGS: Please note that the CTA of the chest will be reported separately. No pneumatosis, free air or portal venous gas is present. There is moderate plaque within the abdominal aorta and branch vessels. There is no abdominal aortic dissection or aneurysm. Major branch vessels are patent. Water attenuation left upper pole renal lesion represents a cyst. Liver, spleen, adrenal glands, right kidney and pancreas are unremarkable. There is no biliary or pancreatic ductal dilatation. The appendix is normal. There is sigmoid diverticulosis without evidence for acute diverticulitis. There are no fluid collections within the abdomen or pelvis. There is no lymphadenopathy. IMPRESSION: 1. No acute process within the abdomen or pelvis. 2. No bowel obstruction. No bowel wall thickening. 3. Sigmoid diverticulosis. No evidence for acute diverticulitis. 4. Moderate plaque within the abdominal aorta and branch vessels. No abdominal aortic dissection. Patent vessels. ACT 112: Negative or not required by law. Electronically signed by: Jerson Gusman M.D. 03/11/2024 4:41 PM Chest CTA 03/11/24 15:47 CT angio chest dissec wo/w con HISTORY: 78 years-old Female with chest pain, eval dissection. Acute chest pain with shortness of breath TECHNIQUE: Multiple CTA images of the chest were obtained with and without the intravenous administration of 119 ml Optiray. Coronal and sagittal MIPS were obtained from the axial data set and were submitted for review. All measurements were obtained according to NASCET criteria. A dose lowering technique was utilized adhering to the principles of ALARA. COMPARISON: CT abdomen and pelvis of same day, CTA chest 09/22/2022 FINDINGS: CTA: There is adequate opacification of the pulmonary arteries to the level of the subsegmental branches without convincing evidence of acute pulmonary embolism. Moderate atherosclerosis of the thoracic aorta without aneurysm or dissection. 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 No hematoma. No mediastinal hemorrhage.Heart size is normal. CT CHEST: No dominant thyroid nodule is seen. No pathologically adenopathy by CT size criteria. . Minimal biapical pleural parenchymal scarring. Stable small nodule versus lymph node within the left upper axilla measuring 10 mm on image 108 series 9, likely benign. There is no pneumothorax, pleural effusion or focal airspace consolidation. The imaged upper abdominal structures are unremarkable. Mild midthoracic dextroscoliosis. The osseous structures appear intact. IMPRESSION: 1. Moderate atherosclerosis of the thoracic aorta without aneurysm or dissection. 2. No pleural effusion, airspace consolidation or lymphadenopathy. ACT 112: Negative or not required by law. The above report was generated using voice recognition software. It may contain grammatical, syntax or spelling errors. Electronically signed by: Houston Reich M.D. 03/11/2024 4:[address] 03/11/24 16:16 CT head/brain wo con CLINICAL HISTORY: 78 years-old Female with HTN. Acute hypertension with headache TECHNIQUE: Multiple axial CT images of the head were obtained without contrast. A dose lowering technique was utilized adhering to the principles of ALARA. CT DOSE: 3061.2 mGy.cm COMPARISON: 07/25/2023 FINDINGS: No acute intracranial hemorrhage, midline shift, intracranial mass, h ydrocephalus, territorial ischemia or abnormal extra-axial collection. Involutional changes with chronic microvascular ischemic disease. The calvarium is intact. The paranasal sinuses, mastoid air cells, and middle ear cavities are clear. IMPRESSION: No acute intracranial abnormality. ACT 112: Negative or not required by law. The above report was generated using voice recognition software. It may contain grammatical, syntax or spelling errors. Electronically signed by: Houston Reich M.D. 03/11/2024 4:46 PM Pending Results Patient Have Any Pending Studies at Discharge: No Discharge Instructions Given to Patient (Per Discharging Provider) Mrs. Escalante, Jamison were admitted to the hospital because as very elevated blood pressure as well as chest pain. Your blood pressure is now controlled and back to your baseline. In regards to a cardiac workup, this was all negative. I suspect that your chest pain is a combination between the elevated blood pressure as well as important your chronic esophagitis. Upon discharge from the hospital: * Take lisinopril 10 mg daily. This is to help control your blood pressure better. * Take Protonix 40 mg daily. This is to help control your chronic esophagitis. * Follow-up with your PCP. Your appointment is scheduled for 03/23/2024 at 1:00 PM. * Please check your blood pressure at home 1-2 times per day and write it down to bring to your PCP appointment. * Continue all of your other home medications as prescribed. Please return to the hospital if you experience any of the following: Chest pain/tightness/pressure, heart palpitations, shortness of breath, difficulty breathing, lightheadedness, dizziness, passing out. It was a pleasure taking care of you while you were in the hospital, Leah Rod PA-C Total Time Total Time Spent Total Time Spent (In Minutes): Greater than 30 minutes spent completing this discharge process including direct patient care, medication reconciliation, documentation, review of labs and images, and coordination of care. Coding Level of Care Code 45580 INP/OBS DISCH >30 MIN Diagnoses HTN (hypertension) I10 Costochondritis, acute M94.0
[2024-03-12] MEDS ORDERED: GABAPENTIN 100 MG CAP PO SCH (21:00)
[2024-03-13] MEDS ORDERED: lisinopril 10 MG TAB PO SCH (09:00)
== END 2024-03-12 15:30 | disposition home or self-care (01) ==
LOC: ED 15:24 → 4W 15:24 → MERGE 15:24 → SUATTDRO 21:32 → 4W 22:27

== ENCOUNTER 2025-01-19 17:42 | Observation (INO) ==
[2025-01-19] MEDS: LABETALOL HCL IV 5 MG/ML 20ML IV STA ×2 (18:56→21:13)
--- NOTE | 2025-01-19 19:15 | XRay Report ---
EXAM: X-ray chest one-view portable CLINICAL HISTORY: Hypertension PRIORS: 11/23/2024 TECHNIQUE: Upright AP chest FINDINGS: Patient rotated. Chest is well-expanded. No airspace consolidation, effusion or congestive changes. Cardiac silhouette is upper limits of normal, allowing for rotation.. Moderate atherosclerotic disease of the aortic knob. No pneumothorax. Trachea is patent. Osseous structures demonstrate no acute abnormality. No radiopaque foreign body. IMPRESSION: No plain film evidence of an acute cardiopulmonary process. Electronically signed by Minerva Oneil 01-19-2025 7:14 PM
[2025-01-19 19:16] LABS: Basophils # (auto) 0.01 K/uL (0.00-0.20); Basophils % (auto) 0.2 %; Eosinophils # (auto) 0.09 K/uL (0.00-0.50); Eosinophils % (auto) 2.1 %; Hematocrit (blood only) 34.9 % (37.0-47.0); Hemoglobin 11.4 g/dl (12.0-16.0); Immature Granulocytes # (auto) 0.01 K/uL (0.01-0.20); Immature Granulocytes % (auto) 0.2 %; Lymphocytes # (auto) 1.36 K/uL (1.20-3.40); Lymphocytes % (auto) 31.9 %; Mean Corpuscular Hemoglobin 30.7 pg (25.0-34.0); Mean Corpuscular Hgb Conc 32.7 g/dL (32.0-36.0); Mean Corpuscular Volume 94.1 fL (80.0-100.0); Mean Platelet Volume 11.4 fL (9.4-12.4); Monocytes # (auto) 0.39 K/uL (0.11-0.59); Monocytes % (auto) 9.2 %; Neutrophils % (auto) 56.4 %; Platelet Count 193 K/uL (130-400); RDW Coefficient of Variation 12.1 % (11.5-14.5); RDW Standard Deviation 41.9 fL (36.4-46.3); Red Blood Count 3.71 M/uL (4.20-5.40); White Blood Count 4.26 K/ul (4.8-10.8)
[2025-01-19 19:26] LABS: Appearance Urine Clear (Clear); Bacteria Urine Automated None Seen (None Seen); Bilirubin Urine Negative (Negative); Blood Urine Negative (Negative); Cast Urine Automated 0-2 /lpf (0-2); Color Urine Yellow; Glucose Urine UA Negative (Negative); Ketones Urine Trace (Negative); Leukocyte Esterase Urine 1+ (Negative); Nitrite Urine Negative (Negative); Protein Urine Trace (Negative); RBC Urine Automated 0-2 /hpf (0-2); Specific Gravity Urine 1.021 (1.000-1.030); Urobilinogen Urine Negative (Negative)
--- NOTE | 2025-01-19 19:41 | Emergency Department Note ---
Impression & Plan Hypertensive urgency, Hypertensive crisis ED Provider Note NAME: AMIRA GUNN AGE: 79 SEX: F : 1945 ARRIVES VIA: Walk-In INFORMANT: Patient, ED PROVIDER(S): Zhao Ibarra MD CHIEF COMPLAINT: Hypertension HPI: This is a 79-year-old female for hypertension. Patient states that she was at the dentist and was told they could not do the procedure today due to her elevated blood pressure in the 190s. Patient has a previous history of high blood pressure, around this level. She notes some slight chest tightness but no pain. She has had this chest tightness before with elevated blood pressure. She notes no shortness of breath, fever, back pain, leg pain, leg swelling, tearing back pain. She reports no history of CAD. ROS: See above HPI for pertinent positives & negatives. A total of 10 systems reviewed and were otherwise negative. PAST MEDICAL HISTORY: See Below PAST SURGICAL HISTORY: See Below FAMILY HISTORY: See Below SOCIAL HISTORY: See Below HOME MEDICATIONS: See Below ALLERGIES: See Below VITALS: See Below PHYSICAL EXAMINATION: General: resting comfortably in no acute distress Head: Normocephalic and atraumatic Eyes: Normal inspection, extraocular muscles intact Ear, nose, throat: Normal external exam Neck: Normal range of motion Respiratory: lungs clear to auscultation bilaterally Cardiovascular: Regular rate/rhythm, no murmur GI: soft, nontender, no guarding or rebound Extremities: nontender, moves all extremities Neuro: The patient awake and alert, appropriately conversive, no focal deficits, symmetric faces Skin: Warm, dry, and intact MEDICAL DECISION MAKING: This is a pleasant 79-year-old female presenting for hypertension. Patient is simply hypertensive at 222/104. She has no other acute signs of hypertensive emergency. She has no active chest pain, only chest pressure which is improved. Will still rule out ACS. - Bloodwork is reviewed showing no significant leukocytosis, anemia, electrolyte or creatinine abnormality - ECG independently interpreted by me with normal sinus rhythm, rate of 63, normal axis, normal IL, normal QRS, normal QTc, no ST segment elevations consistent with STEMI criteria - Chest Xray independently interpreted by me showing no pneumothorax, focal opacity, or pleural effusions. -While here patient's blood pressure has not significantly improved. Has been given 2 different doses of IV labetalol 10 mg. Her blood pressure has actually increased into the 220s and 240s. Had a long discussion with family about admission versus discharge. Ultimately with patient's uncontrolled blood pressure and previous chest pressure, will admit the patient for hypertensive urgency/emergency. Differential diagnosis: Hypertensive urgency hypertensive emergency, ACS Independent History obtained from: Diagnostics interpreted by me: ECG: See above Cardiac Monitoring: An order was placed for continuous cardiac monitoring. The monitor shows a rate of 72 with sinus rhythm. Critical Care Note: I have personally spent 37 minutes of critical care time in the direct management of this patient. This includes bedside care, interpretation of diagnostic studies, and testing, discussion with consultants, patient, and family members, and other required patient management activities. This 37 minutes is in excess of all separately billable procedures. Past Med/Surg History Problem List (Updated 01/21/25 @ 01:32 by Zhao Ibarra MD) Hypertensive crisis (Acute) Hypertensive urgency (Acute) Chest pressure Hypertensive urgency (Acute) Chest pain (Acute) Vertigo Dysphagia LPRD (laryngopharyngeal reflux disease) Bilateral tinnitus Sensorineural hearing loss (SNHL) of both ears Vitamin B12 deficiency Myoclonia Essential hypertension Occipital neuralgia Lumbar degenerative disc disease Diarrhea Depression with anxiety Current use of proton pump inhibitor HTN (hypertension) GERD (gastroesophageal reflux disease) (Chronic) HTN (hypertension) Palpitations Asthma (Acute) Abdominal pain, chronic, epigastric (Acute) TMJ arthralgia (Acute) Lumbar radiculopathy (Acute) Internal hemorrhoids (Acute) Diverticulosis (Acute) Chronic reflux esophagitis (Chronic) Biliary dyskinesia (Acute) Arthritis of hand (Acute) Allergic rhinitis (Acute) Esophageal dysphagia Anemia Pain of left calf (Acute) Family history of blood clots Radicular pain in right arm (Chronic) Tinea pedis (Acute) Costochondritis, acute Cervical radiculopathy Cervical disc disease Small intestinal bacterial overgrowth (SIBO) Osteopenia Disorder of rotator cuff Hearing loss Medical History Greater tuberosity of humerus fracture (01/15/23) Right Multiple pulmonary emboli Radicular pain in right arm Back problem Sciatica Abdominal pain Nausea GERD (gastroesophageal reflux disease) TMJ (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 joint disorder) community dietitian prn (hx tmj locking) History of migraine Anemia Cough Memory loss Mild depression Recent skin changes Sinusitis Acute hypokalemia Chest pain Anemia History of depression Surgical History History of D&C History of tonsillectomy History of partial hysterectomy History of esophagogastroduodenoscopy (EGD) History of colonoscopy Family History Mother Diabetes Alzheimer disease Hypertension Family/Other Diabetes Sister Diabetes Hypertension Brother Hypertension Father Lung cancer Cancer Other No family history of adverse response to anesthesia No family history of bleeding disorder Denies family history of Ovarian cancer Prostate cancer Myocardial infarction Breast cancer Colorectal cancer Social History Smoking Status: Never smoker Second Hand Exposure: No; Do You Dip or Chew Tobacco: No; Hx Alcohol Use: No Hx Substance Use: No Preferred Language: Albanian Communication Ability: Effective Visual Impairment: No Limitations Hearing Ability: Normal Nursery Worker Required: No Beliefs That Will Affect Care: None marital status: Current Living Situation: Spouse Current Living Situation Comment: lives at home with current occupational status: retired 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 Feels Safe at Home: Yes Childhood Exposure to Second-Hand Smoke: Yes Dental Care, Regularly: Yes Physical Activity Frequency: 5-6 Times per Week Seatbelt Use: always Sunscreen Use: No Assistive Devices: Cane and Walker Allergies Allergies Allergy/AdvReac Type Severity Reaction Status Date / Time Penicillins Allergy Severe Unknown Unverified 12/18/24 13:24 Sulfa (Sulfonamide Allergy Intermediate LIPS Verified 12/18/24 13:24 Antibiotics) SWELLING amlodipine [From Norvasc] Allergy Unknown Unknown Verified 12/18/24 13:24 onion Allergy Unknown Unknown Unverified 12/18/24 13:24 sertraline Allergy Unknown Tremors Verified 12/18/24 13:24 garlic Allergy Gastrointestinal Verified 12/18/24 13:24 Upset milk Allergy Unknown Verified 12/18/24 13:24 erythromycin base AdvReac Mild DIZZY Verified 12/18/24 13:24 propoxyphene AdvReac Mild DIZZINESS Verified 12/18/24 13:24 Home Meds Home Medications Medication Instructions Recorded Confirmed loratadine 10 mg tablet (Claritin) 10 mg PO DAILY PRN allergies 11/11/18 01/19/25 lidocaine 4 % topical patch 1 patch topical DAILY PRN Pain 04/20/21 01/19/25 (Lidocaine Pain Relief) cholecalciferol (vitamin D3) 25 25 mcg PO QDL 11/15/21 01/19/25 mcg (1,000 unit) capsule (Vitamin D3) ipratropium bromide 21 mcg (0.03 2 spray intranasal BID PRN Allergy 11/15/21 01/19/25 %) nasal spray Symptoms mecobalamin (vitamin B12) 500 mcg 500 mcg PO DAILY 10/09/23 01/19/25 chewable tablet famotidine 20 mg tablet 20 mg PO BID 03/11/24 01/19/25 multivitamin with minerals 1 tab PO DAILY 03/11/24 01/19/25 (Multiple Vitamin-Minerals tablet) vitamin B complex 1 tab PO DAILY 03/11/24 01/19/25 hydrocodone 5 mg-acetaminophen 325 1 tab PO TID PRN Pain 10/19/24 01/19/25 mg tablet meclizine 25 mg tablet 25 mg PO TID PRN Dizziness 01/19/25 01/19/25 pantoprazole 40 mg tablet,delayed 40 mg PO QAM 01/19/25 01/19/25 release Previous Rx's Medication Instructions Recorded propranolol 60 mg capsule,24 60 mg PO DAILY #90 caps 10/16/23 hr,extended release gabapentin 100 mg capsule 200 mg (2 x 100 mg) PO HS Pain #60 07/15/24 caps lisinopril 20 mg tablet 20 mg PO QAM #30 tabs 11/25/24 albuterol sulfate 90 mcg/actuation 2 puff inhalation Q6H PRN 12/22/24 aerosol inhaler shortness of breath or wheezing #6.7 grams apixaban 5 mg tablet (Eliquis) 5 mg PO BID #180 tabs 12/28/24 Results & Data (ED) Vital Signs Vital Signs - 24 hr 01/19/25 17:43 01/19/25 17:43 01/19/25 18:09 Temperature 36.7 C Temperature Source Skin Pulse Rate 67 63 Respiratory Rate 16 14 Respiratory Effort / Characteristics Non-Labored Spontaneous Respiratory Depth Normal Respiratory Pattern Regular Blood Pressure 222/104 H Blood Pressure [Left Arm] 222/98 H Blood Pressure Mean 143 Blood Pressure Mean [Left Arm] 139 Pulse Oximetry 99 99 Oxygen Delivery Method Room Air Room Air Sepsis Recent Fever Within 48 Hours No Sepsis New/Unexplained Change in Mental Status N/A Sepsis Action Taken by Nursing No Action Required 01/19/25 18:56 Temperature Temperature Source Pulse Rate 63 Respiratory Rate Respiratory Effort / Characteristics Respiratory Depth Respiratory Pattern Blood Pressure 242/97 H Blood Pressure [Left Arm] Blood Pressure Mean Blood Pressure Mean [Left Arm] Pulse Oximetry Oxygen Delivery Method Sepsis Recent Fever Within 48 Hours Sepsis New/Unexplained Change in Mental Status Sepsis Action Taken by Nursing Laboratory Data 01/19/25 18:23 01/19/25 20:13 Lab Results 01/19/25 01/19/25 01/19/25 Range/Units 18:23 18:57 20:13 WBC 4.26 L (4.8-10.8) K/ul RBC 3.71 L (4.20-5.40) M/uL Hgb 11.4 L (12.0-16.0) g/dl Hct 34.9 L (37.0-47.0) % MCV 94.1 (80.0-100.0) fL MCH 30.7 (25.0-34.0) pg MCHC 32.7 (32.0-36.0) g/dL RDW Std Deviation 41.9 (36.4-46.3) fL RDW Coeff of Yair 12.1 (11.5-14.5) % Plt Count 193 (130-400) K/uL MPV 11.4 (9.4-12.4) fL Immature Gran % (Auto) 0.2 % Neut % (Auto) 56.4 % Lymph % (Auto) 31.9 % Tucker % (Auto) 9.2 % Eos % (Auto) 2.1 % Baso % (Auto) 0.2 % Neut # (Auto) 2.40 (1.40-6.50) K/uL Lymph # (Auto) 1.36 (1.20-3.40) K/uL Tucker # (Auto) 0.39 (0.11-0.59) K/uL Eos # (Auto) 0.09 (0.00-0.50) K/uL Baso # (Auto) 0.01 (0.00-0.20) K/uL Immature Gran # (Auto) 0.01 (0.01-0.20) K/uL Sodium TNP 140 Potassium TNP 3.5 Chloride 105 (98-107) mmol/L Carbon Dioxide 27 (21-32) mmol/L Anion Gap TNP BUN 14 (6-23) mg/dl Creatinine 0.82 (0.6-1.2) mg/dl Est Cr Clr Drug Dosing 53.1 ml/min eGFR 72.72 BUN/Creatinine Ratio 17.1 (10-20) Glucose 80 (70-99(Fasting)) mg/dl Calcium 9.5 (8.6-10.3) mg/dl Total Bilirubin 0.3 (0.2-1.0) mg/dl AST TNP 13 ALT 7 (7-52) U/L Alkaline Phosphatase 70 (34-104) U/L Troponin I High Sens 4.3 (0-14) pg/ml Total Protein 7.2 (6.0-8.3) gm/dl Albumin 4.0 (3.4-5.0) gm/dl Globulin 3.2 (2.5-4.0) gm/dl Albumin/Globulin Ratio 1.3 (0.9-2) Urine Color Yellow Urine Appearance Clear (Clear) Urine pH 6.0 (4.5-7.5) Ur Specific Kincaid 1.021 (1.000-1.030) Urine Protein Trace H (Negative) Urine Glucose (UA) Negative (Negative) Urine Ketones Trace H (Negative) Urine Blood Negative (Negative) Urine Nitrite Negative (Negative) Urine Bilirubin Negative (Negative) Urine Urobilinogen Negative (Negative) Ur Leukocyte Esterase 1+ H (Negative) Urine WBC (Auto) 6-10 H (0-5) /hpf Urine RBC (Auto) 0-2 (0-2) /hpf U Hyaline Cast (Auto) 0-2 (0-2) /lpf U Epithel Cells (Auto) 3-5 H (0-2) /hpf Urine Bacteria (Auto) None Seen (None Seen) Urine Yeast Present A (None Prsent) Urine Comment Administered Medications Apixaban (Apixaban 5 Mg Tablet) 5 mg PO BID YADIEL Stop: 02/19/25 08:59 Last Admin: 01/20/25 21:12 Dose: 5 mg Documented By: Admin: 01/20/25 08:29 Dose: 5 mg Documented By: OUMAR Famotidine (Famotidine 20 Mg Tab) 20 mg PO BID YADIEL Stop: 02/19/25 08:59 Last Admin: 01/20/25 21:10 Dose: 20 mg Documented By: Admin: 01/20/25 08:37 Dose: 20 mg Documented By: OUMAR Gabapentin (Gabapentin 100 Mg Cap) 200 mg PO HS YADIEL Stop: 02/19/25 20:59 Last Admin: 01/20/25 21:11 Dose: 200 mg Documented By: EVELYN Hydralazine HCl (Hydralazine Hcl 25 Mg Tab) 25 mg PO TID YADIEL Stop: 02/19/25 08:59 Last Admin: 01/20/25 21:11 Dose: 25 mg Documented By: Admin: 01/20/25 13:44 Dose: 25 mg Documented By: Admin: 01/20/25 08:37 Dose: 25 mg Documented By: OUMAR Labetalol HCl (Labetalol Hcl 100 Mg Tab) 100 mg PO BID YADIEL Stop: 02/19/25 20:59 Last Admin: 01/20/25 21:10 Dose: 100 mg Documented By: EVELYN Pantoprazole Sodium (Pantoprazole 40 Mg Tab) 40 mg PO QAM YADIEL Stop: 02/19/25 08:59 Last Admin: 01/20/25 08:29 Dose: 40 mg Documented By: OUMAR Discontinued Medications Hydralazine HCl (Hydralazine Hcl 20 Mg/Ml Vial) 5 mg IV NOW STA Stop: 01/19/25 21:19 Last Admin: 01/19/25 21:21 Dose: 5 mg Documented By: SKYLA Labetalol HCl (Labetalol Hcl Iv 5 Mg/Ml 20ml) 10 mg IV NOW STA Stop: 01/19/25 18:41 Last Admin: 01/19/25 18:56 Dose: 10 mg Documented By: MATT Labetalol HCl (Labetalol Hcl Iv 5 Mg/Ml 20ml) 10 mg IV NOW STA Stop: 01/19/25 20:34 Last Admin: 01/19/25 21:13 Dose: Not Given Documented By: SKYLA Propranolol HCl (Propranolol Hcl 60 Mg [place]) 60 mg PO BID YADIEL Stop: 02/19/25 08:59 Last Admin: 01/20/25 08:29 Dose: 60 mg Documented By: OUMAR Imaging Data Radiologist's Impression: Chest X-Ray 01/19/25 17:51 EXAM: X-ray chest one-view portable CLINICAL HISTORY: Hypertension PRIORS: 11/23/2024 TECHNIQUE: Upright AP chest FINDINGS: Patient rotated. Chest is well-expanded. No airspace consolidation, effusion or congestive changes. Cardiac silhouette is upper limits of normal, allowing for rotation.. Moderate atherosclerotic disease of the aortic knob. No pneumothorax. Trachea is patent. Osseous structures demonstrate no acute abnormality. No radiopaque foreign body. IMPRESSION: No plain film evidence of an acute cardiopulmonary process. Electronically signed by Minerva Oneil 01-19-2025 7:14 PM Discharge Plan Visit Data Chief Complaint: Hypertension Stated Complaint: HIGH BP ED Provider: Zhao Ibarra Discharge Problem: Hypertensive urgency, Hypertensive crisis Patient Disposition: Admitted As Inpatient Condition: Fair Discharge Instructions Interventions: ED Discharge Assessment Last Done: 01/19/25 22:20
[2025-01-19 20:01] LABS: Alanine Aminotransferase 7 U/L (7-52); Albumin Globulin Ratio 1.3 (0.9-2); Alkaline Phosphatase 70 U/L (34-104); BUN Creatinine Ratio 17.1 (10-20); Bilirubin,Total 0.3 mg/dl (0.2-1.0); Blood Urea Nitrogen 14 mg/dl (6-23); Calcium 9.5 mg/dl (8.6-10.3); Carbon Dioxide 27 mmol/L (21-32); Chloride 105 mmol/L (98-107); Creatinine Clr Calc Pharmacy 53.1 ml/min; Globulin 3.2 gm/dl (2.5-4.0); Glucose 80 mg/dl (70-99(Fasting)); Total Protein 7.2 gm/dl (6.0-8.3); Troponin I High Sensitivity 4.3 pg/ml (0-14)
[2025-01-19 20:43] LABS: Potassium 3.5 mmol/L (3.5-5.1)
[2025-01-19] MEDS: hydrALAZINE HCL 20 MG/ML VIAL IV STA (21:21)
--- NOTE | 2025-01-19 21:24 | History & Physical Report ---
Date of Service January 19, 2025 Assessment & Plan (1) Hypertensive urgency: (2) Chest pressure: Plan 79-year-old female PMHx HTN, GERD, vertigo, vitamin B12 deficiency, tremor, DVT on Eliquis, and lumbar radiculopathy presenting for elevated BP readings into the 190 systolic. ED evaluation reveals CBC leukopenia 4.26, H&H 11.4/35.9; CMP grossly normal; trop 4.3, pending repeat; UA negative for infection; CXR no acute findings; EKG pending.; Provided with labetalol 10 mg IV x 2 in ED. #Hypertensive urgency /Chest pressure Persistently elevated BP readings, first noted at dental appointment day of arrival with readings being 193/88 and 197/84. Symptoms and some chest pressure/discomfort, which sound consistent with her normal reflux disease. Patient received 2 doses of labetalol 10 mg IV in ED, pressures still remain in the systolics > 200. History of hyperkalemia with HCTZ, state that 40mg of lisinopril makes her tremulous. Amlodipine on allergy list. Of note, does not feel that the patient has enough education regarding GERD and feels that this is why her symptoms are exacerbated at times. Has had increased stress at home. - CBC leukopenia, H&H 11.4/34.9, troponin 4.3, pending repeat am - EKG normal sinus no ischemic changes - CXR without acute findings - Plasma, urine metanephrines pending -- if abnormal, follow up outpatient for further workup pheo - Suspect that her chest discomfort is reflux compared to ACS -- continue pantoprazole and famotidine - Continue lisinopril 20 mg - increased dose (40mg) made her "tremulous" - see HPI for further explanation - Will increase propranolol 60mg daily to BID for total 120mg - Hydralazine 5mg IV now then 10mg IV prn q8hr if SBP > 200 - Melatonin to help with sleep #H/o DVT- Eliiquis - continue #GERD- Famotidine, pantoprazole - continue #Pain- Gabapentin, hydro-acet; PDMP independently reviewed by me at time of admission - continued gabapentin only Dispo: Obs, PCU VTE Prophylaxis: Eliquis This document was dictated utilizing [employer] Please excuse any grammatical errors that may be secondary to use of this software. Admission and Anticipated Discharge Date Admission Date: 01/19/2025 History of Present Illness Chief Complaint: HTN, chest pressure Primary Care Provider: Braulio Kaur MD 79-year-old female PMHx HTN, GERD, vertigo, vitamin B12 deficiency, tremor, DVT on Eliquis, and lumbar radiculopathy presenting for elevated BP readings into the 190 systolic. She was at her dentist appointment when her blood pressure was taken and found to be in the 190s. She was having some mild chest pressure during this episode. Patient states that she does not check her blood pressures at home, normally does not have any symptoms. The only reason she knew that her pressure was up today was because when she was at the dentist, they had checked her BP prior to any interventions. The initial reading was 193/88, and repeat was 197/84. She states that they were going to proceed with the procedure, but because she was having chest heaviness and it felt "different" than before, she was encouraged to be seen by ED. She states that she took her a.m. medications. She does report that she "hates going to the dentist" and sometimes her pressures tend to be up when she is there. She describes the chest discomfort as a heaviness that is in her central chest and radiates to the right and left. It is not constant, but it will have occasional sharp and stabbing pains through the left side which she says last for a few seconds to minutes and resolves completely then. It does not cause her any SOB or palpitations. She does not get dizzy with this. She does report having increased indigestion throughout the past week, as well as coughing at night when laying flat. She is unsure if she is taking all of her acid reflux medications, she believes that she stopped 1 but does not remember which one. She states that whenever she rubs her chest this does sometimes help with the symptoms, but does not resolve them completely. At present, she is having mild chest pressure under her left breast, reproducible whenever she is palpating it herself. She has not been sick otherwise. Of note, patient states that 2 weeks ago she was accidentally taking lisinopril 40mg daily instead of 20- usband notes that when this was occurring, she was having "trembling episodes" following taking the medication. She has since been on lisinopril 20mg daily and is no longer having these episodes. Denies palpitations, SOB, abdominal pain, N/V/D/C, numbness/tingling, fever/chills, URI symptoms, LUTS, weakness, syncope, or LOC. She is due for her nighttime medications. ED evaluation reveals CBC leukopenia 4.26, H&H 11.4/35.9; CMP grossly normal; trop 4.3, pending repeat; UA negative for infection; CXR no acute findings; EKG NSR @ 63 bpm.; Provided with labetalol 10 mg IV x [address] see Dr[address] Lu's attestation for adjustments/additions to treatment plan. Allergies Allergy/AdvReac Type Severity Reaction Status Date / Time Penicillins Allergy Severe Unknown Unverified 12/18/24 13:24 Sulfa (Sulfonamide Allergy Intermediate LIPS Verified 12/18/24 13:24 Antibiotics) SWELLING amlodipine [From Norvasc] Allergy Unknown Unknown Verified 12/18/24 13:24 onion Allergy Unknown Unknown Unverified 12/18/24 13:24 sertraline Allergy Unknown Tremors Verified 12/18/24 13:24 garlic Allergy Gastrointestinal Verified 12/18/24 13:24 Upset milk Allergy Unknown Verified 12/18/24 13:24 erythromycin base AdvReac Mild DIZZY Verified 12/18/24 13:24 propoxyphene AdvReac Mild DIZZINESS Verified 12/18/24 13:24 Home Medications Medication Instructions Recorded Confirmed Type loratadine 10 mg tablet (Claritin) 10 mg PO DAILY PRN allergies 11/11/18 01/19/25 History lidocaine 4 % topical patch 1 patch topical DAILY PRN Pain 04/20/21 01/19/25 History (Lidocaine Pain Relief) cholecalciferol (vitamin D3) 25 25 mcg PO QDL 11/15/21 01/19/25 History mcg (1,000 unit) capsule (Vitamin D3) ipratropium bromide 21 mcg (0.03 2 spray intranasal BID PRN Allergy 11/15/21 01/19/25 History %) nasal spray Symptoms mecobalamin (vitamin B12) 500 mcg 500 mcg PO DAILY 10/09/23 01/19/25 History chewable tablet propranolol 60 mg capsule,24 60 mg PO DAILY #90 caps 10/16/23 01/19/25 Rx hr,extended release famotidine 20 mg tablet 20 mg PO BID 03/11/24 01/19/25 History multivitamin with minerals 1 tab PO DAILY 03/11/24 01/19/25 History (Multiple Vitamin-Minerals tablet) vitamin B complex 1 tab PO DAILY 03/11/24 01/19/25 History gabapentin 100 mg capsule 200 mg (2 x 100 mg) PO HS Pain #60 07/15/24 01/19/25 Rx caps hydrocodone 5 mg-acetaminophen 325 1 tab PO TID PRN Pain 10/19/24 01/19/25 History mg tablet lisinopril 20 mg tablet 20 mg PO QAM #30 tabs 11/25/24 01/19/25 Rx albuterol sulfate 90 mcg/actuation 2 puff inhalation Q6H PRN 12/22/24 01/19/25 Rx aerosol inhaler shortness of breath or wheezing #6.7 grams apixaban 5 mg tablet (Eliquis) 5 mg PO BID #180 tabs 12/28/24 01/19/25 Rx meclizine 25 mg tablet 25 mg PO TID PRN Dizziness 01/19/25 01/19/25 History pantoprazole 40 mg tablet,delayed 40 mg PO QAM 01/19/25 01/19/25 History release Past Med/Surg History Problem List (Updated 01/19/25 @ 22:15 by Stanford Cook PA-C) Chest pressure Hypertensive urgency (Acute) Chest pain (Acute) Vertigo Dysphagia LPRD (laryngopharyngeal reflux disease) Bilateral tinnitus Sensorineural hearing loss (SNHL) of both ears Vitamin B12 deficiency Myoclonia Essential hypertension Occipital neuralgia Lumbar degenerative disc disease Diarrhea Depression with anxiety Current use of proton pump inhibitor HTN (hypertension) GERD (gastroesophageal reflux disease) (Chronic) HTN (hypertension) Palpitations Asthma (Acute) Abdominal pain, chronic, epigastric (Acute) TMJ arthralgia (Acute) Lumbar radiculopathy (Acute) Internal hemorrhoids (Acute) Diverticulosis (Acute) Chronic reflux esophagitis (Chronic) Biliary dyskinesia (Acute) Arthritis of hand (Acute) Allergic rhinitis (Acute) Esophageal dysphagia Anemia Pain of left calf (Acute) Family history of blood clots Radicular pain in right arm (Chronic) Tinea pedis (Acute) Costochondritis, acute Cervical radiculopathy Cervical disc disease Small intestinal bacterial overgrowth (SIBO) Osteopenia Disorder of rotator cuff Hearing loss Medical History Greater tuberosity of humerus fracture (01/15/23) Right Multiple pulmonary emboli Radicular pain in right arm Back problem Sciatica Abdominal pain Nausea GERD (gastroesophageal reflux disease) TMJ (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 joint disorder) 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) History of migraine Anemia Cough Memory loss Mild depression Recent skin changes Sinusitis Acute hypokalemia Chest pain Anemia History of depression Surgical History History of D&C History of tonsillectomy History of partial hysterectomy History of esophagogastroduodenoscopy (EGD) History of colonoscopy Family History Mother Diabetes Alzheimer disease Hypertension Family/Other Diabetes Sister Diabetes Hypertension Brother Hypertension Father Lung cancer Cancer Other No family history of adverse response to anesthesia No family history of bleeding disorder Denies family history of Ovarian cancer Prostate cancer Myocardial infarction Breast cancer Colorectal cancer Social History Smoking Status: Never smoker Second Hand Exposure: No; Do You Dip or Chew Tobacco: No; Hx Alcohol Use: No Hx Substance Use: No Preferred Language: Cameroonian Communication Ability: Effective Visual Impairment: No Limitations Hearing Ability: Normal Laborer Laboratory Required: No Beliefs That Will Affect Care: None marital status: Current Living Situation: Spouse Current Living Situation Comment: lives at home with current occupational status: retired 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 Feels Safe at Home: Yes Childhood Exposure to Second-Hand Smoke: Yes Dental Care, Regularly: Yes Physical Activity Frequency: 5-6 Times per Week Seatbelt Use: always Sunscreen Use: No Assistive Devices: Walker Review of Systems Review of Systems: All systems reviewed & are unremarkable except as noted in Subjective Physical Exam Physical Exam: General: No acute distress Skin: Warm and dry Head: Normocephalic, atraumatic Eyes: PERRL, conjunctivae clear, sclera non-icteric ENT: External ear and ear canal without swelling; nose atraumatic; good dentition, tongue normal appearance, pharynx normal Neck: Supple, no LAD Cardio: RRR, no M/G/R, S1 and S2 normal; mild tenderness to palpation below L breast Resp: No respiratory distress, Lungs CTA in all lobes bilaterally, no wheezes, rales, or rhonchi Abdomen: Soft, symmetric, nontender; No masses or hepatosplenomegaly; Bowel sounds normoactive MSK: No deformities; pulses palpable and equal; no edema. Neuro: Awake, alert; Sensation intact bilaterally; CN grossly intact Psych: Appropriate mood and affect; good judgement and insight. Son and present in room at time of visit. Results & Data Results & Data Vital Signs (Past 12 Hours) Vital Signs Temp Pulse Pulse Resp BP BP Pulse Ox 01/19/25 21:13 61 226/90 H 01/19/25 20:43 63 17 98 01/19/25 20:41 64 17 226/90 H 98 01/19/25 18:56 63 242/97 H 01/19/25 18:09 63 01/19/25 17:43 14 222/98 H 99 01/19/25 17:43 36.7 C 67 16 222/104 H 99 O2 Del Method 01/19/25 21:13 01/19/25 20:43 Room Air 01/19/25 20:41 Room Air 01/19/25 18:56 01/19/25 18:09 01/19/25 17:43 Room Air 01/19/25 17:43 Room Air Laboratory Results 01/19/25 01/19/25 01/19/25 20:13 18:57 18:23 WBC 4.26 L RBC 3.71 L Hgb 11.4 L Hct 34.9 L MCV 94.1 MCH 30.7 MCHC 32.7 RDW Std Deviation 41.9 RDW Coeff of Yair 12.1 Plt Count 193 MPV 11.4 Immature Gran % (Auto) 0.2 Neut % (Auto) 56.4 Lymph % (Auto) 31.9 [place] % (Auto) 9.2 Eos % (Auto) 2.1 Baso % (Auto) 0.2 Neut # (Auto) 2.40 Lymph # (Auto) 1.36 [place] # (Auto) 0.39 Eos # (Auto) 0.09 Baso # (Auto) 0.01 Immature Gran # (Auto) 0.01 Sodium 140 TNP Potassium 3.5 TNP Chloride 105 Carbon Dioxide 27 Anion Gap TNP BUN 14 Creatinine 0.82 Est Cr Clr Drug Dosing 53.1 eGFR 72.72 BUN/Creatinine Ratio 17.1 Glucose 80 Calcium 9.5 Total Bilirubin 0.3 AST 13 TNP ALT 7 Alkaline Phosphatase 70 Troponin I High Sens 4.3 Total Protein 7.2 Albumin 4.0 Globulin 3.2 Albumin/Globulin Ratio 1.3 Urine Color Yellow Urine Appearance Clear Urine pH 6.0 Ur Specific [place] 1.021 Urine Protein Trace H Urine Glucose (UA) Negative Urine Ketones Trace H Urine Blood Negative Urine Nitrite Negative Urine Bilirubin Negative Urine Urobilinogen Negative Ur Leukocyte Esterase 1+ H Urine WBC (Auto) 6-10 H Urine RBC (Auto) 0-2 U Hyaline Cast (Auto) 0-2 U Epithel Cells (Auto) 3-5 H Urine Bacteria (Auto) None Seen Urine Yeast Present A Urine Comment Diagnostic Findings Chest X-Ray 01/19/25 17:51 EXAM: X-ray chest one-view portable CLINICAL HISTORY: Hypertension PRIORS: 11/23/2024 TECHNIQUE: Upright AP chest FINDINGS: Patient rotated. Chest is well-expanded. No airspace consolidation, effusion or congestive changes. Cardiac silhouette is upper limits of normal, allowing for rotation.. Moderate atherosclerotic disease of the aortic knob. No pneumothorax. Trachea is patent. Osseous structures demonstrate no acute abnormality. No radiopaque foreign body. IMPRESSION: No plain film evidence of an acute cardiopulmonary process. Electronically signed by Minerva Oneil 01-19-2025 7:14 PM Medications Administered Labetalol 10mg IV x 2 ECG Additional Comments: NSR 63 bpm, MI 174, QRS 82, QT/QTc 408/417, PRT 53/21/41 Code Status & VTE Plan Code Status Full VTE Prophylaxis Plan VTE Prophylaxis will be ordered: Yes Supervising Physician Co-Signing Physician Notes Patient was seen and examined independently I discussed the case with Stanford Cook PA-C I reviewed pertinent past medical social family history and also the plan of care and agree with the plan of care. Patient with history of uncontrolled hypertension who presented with chest discomfort. Previous similar admissions in February 2024 attribute this to hypertensive urgency and some reflux disease. Patient had not responded to labetalol emergency department we did administer hydralazine with some modest effect. Patient denies any dietary indiscretion but does relate increased stressors in her life including significant insomnia. Currently she is feeling improved but is concerned to go home due to her chest discomfort Cardiac exam is regular without murmurs lungs are clear abdomen is NABS there is no renal bruits or carotid bruits. Equal symmetrical bilateral pulses in the radius and dorsalis pedis Assessment hypertension urgency complicated by insomnia and stressors. Will try to increase her beta-gregorio therapy which she takes for tremor in addition to her lisinopril we will use as needed hydralazine at this point time we will send urine metanephrine and if abnormal we will then recommend outpatient formal 24- hour urine testing for pheochromocytoma. With regard to insomnia will initially start with some melatonin for sleep may consider Seroquel. Any exceptions will be noted below PG Care Time/CCT Total # of Minutes Spent Total Time Spent with Patient: Total time spent is greater than 50% in coordination of care (as documented) at patient's floor/unit and/or counseling patient: Coding Level of Care Code 88568 INT INP/OBS CARE MIN Diagnoses Hypertensive urgency I16.0 Chest pressure R07.89
[2025-01-19] MEDS ORDERED: hydrALAZINE HCL 20 MG/ML VIAL IV PRN ×2 (22:16→23:08)
[2025-01-19] MEDS ORDERED: ONDANSETRON INJ 2 MG/ML 2 ML VIAL IV PRN (23:08)
[2025-01-19] MEDS ORDERED: IPRATROPIUM BROMIDE NASAL SPRAY 0.03% 30 ML PRN (23:08)
[2025-01-19] MEDS ORDERED: MELATONIN 3 MG TAB PO PRN (23:08)
[2025-01-19] MEDS ORDERED: ALBUTEROL HFA 8 GM INHALER INH PRN (23:08)
[2025-01-19] MEDS ORDERED: ACETAMINOPHEN 325 MG TAB PO PRN (23:08)
[2025-01-19] MEDS ORDERED: POLYETHYLENE (MIRALAX) 17 GM PACK PO PRN (23:08)
[2025-01-19] MEDS ORDERED: ALUMINUM/MAGNESIUM SUSP 30 ML UDC PO PRN (23:08)
[2025-01-20] MEDS: APIXABAN 5 MG TABLET PO SCH (08:29)
[2025-01-20] MEDS: PANTOprazole 40 MG TAB PO SCH (08:29)
[2025-01-20] MEDS: PROPRANOLOL HCL 60 MG LA CAP PO SCH (08:29)
[2025-01-20] MEDS: hydrALAZINE HCL 25 MG TAB PO SCH (08:37)
[2025-01-20] MEDS: FAMOTIDINE 20 MG TAB PO SCH (08:37)
[2025-01-20] MEDS ORDERED: lisinopril 20 MG TAB PO SCH (09:00)
--- NOTE | 2025-01-20 13:04 | Hospitalist Progress Note ---
Date of Service January 20, 2025 Assessment & Plan (1) Hypertensive urgency: (2) Chest pressure: Plan 79-year-old female PMHx HTN, GERD, vertigo, vitamin B12 deficiency, tremor, DVT on Eliquis, and lumbar radiculopathy presenting for elevated BP readings into the 190 systolic. ED evaluation reveals CBC leukopenia 4.26, H&H 11.4/35.9; CMP grossly normal; trop 4.3, pending repeat; UA negative for infection; CXR no acute findings; EKG pending.; Provided with labetalol 10 mg IV x 2 in ED. #Hypertensive urgency/Uncontrolled HTN/Chest pressure Persistently elevated BP readings, first noted at dental appointment day of arrival with readings being 193/88 and 197/84. Symptoms and some chest pressure/discomfort, which sound consistent with her normal reflux disease. Patient received 2 doses of labetalol 10 mg IV in ED, pressures still remain in the systolics > 200. History of hyperkalemia with HCTZ, state that 40mg of lisinopril makes her tremulous. Amlodipine on allergy list. Of note, does not feel that the patient has enough education regarding GERD and feels that this is why her symptoms are exacerbated at times. Has had increased stress at home. - CBC leukopenia, H&H 11.4/34.9, troponin 4.3, repeat 5.2, acs ruled out - EKG normal sinus no ischemic changes - CXR without acute findings - Plasma, urine metanephrines pending -- if abnormal, follow up outpatient for further workup pheo - Suspect that her chest discomfort is reflux compared to ACS -- continue pantoprazole and famotidine - Continue lisinopril 20 mg - increased dose (40mg) made her "tremulous" - Admitting provider attempted propranolol increase from 60mg daily to BID for total 120mg - Hydralazine ordered as 5mg IV now then 10mg IV prn q8hr if SBP > 200 - Melatonin to help with sleep - Will obtain a renal duplex scan to r/o CRYSTAL - BP still elevated despite morning meds at 187/72, D/C lisinopril, start hydralazine 25mg TID - D/C propranolol and start labetalol 100mg BID, can titrate up within 48-72 hrs to 200mg BID pending response #H/o DVT- Eliiquis - continue #GERD- Famotidine, pantoprazole - continue #Pain- Gabapentin, hydro-acet; PDMP independently reviewed by me at time of admission - continued gabapentin only Dispo: Obs, PCU VTE Prophylaxis: Eliquis Continue to monitor, hopeful discharge tomorrow if BP reflects better control. Plan d/w Dr. Styles. Admission and Anticipated Discharge Date Admission Date: January 19, 2025 Supervising Physician Co-Signing Physician Notes The patient was not seen by me. The chart was reviewed. Case discussed with LUIS A Barajas. Agree with assessment and plan Subjective Rhina was seen on daily rounds this morning. She was admitted with hypertensive urgency after a visit to the dentist. She reports that she has extreme anxiety about visiting the dentist and had this happen prior in which she required hospitalization for uncontrolled HTN. She is currently managed with Lisinopril and tolerated a dose increase from 20mg to 40mg and also is on Propranolol which was increased to 60mg BID. It appears she has been trialed on several medications in the past and has listed allergies to amlodipine with unknown reaction. She is currently without neurologic complaints including headache, blurred vision, numbness/tingling or focal weakness. She denies chest pain or dyspnea. Review of Systems Review of Systems: All systems reviewed and are unremarkable except as noted in HPI and below. Denies fever, chills, fatigue, headache, nasal congestion, sore throat, cough, chest pain, shortness of breath, palpitations, orthopnea, PND, abdominal pain, n/v/d, constipation, dysuria, hematuria, frequency, back pain, joint pain or swe lling, easy bruising or bleeding, skin lesions or rashes. Physical Exam Physical Exam: GENERAL: 79 yo well-nourished AAF. A&Ox4. No distress. LUNGS: Clear to auscultation bilaterally. No W/R/R. CARDIOVASCULAR: Regular rate and rhythm. ABDOMEN: Soft, non-tender and non-distended. BS normoactive x 4 quad. EXTREMITIES: No edema. Non-tender. Peripheral pulses +2/4. NEURO: no deficits SKIN: Warm, dry, intact. No rashes or lesions. Results & Data Results & Data Vital Signs (Past 12 Hours) Vital Signs Temp Pulse Pulse Resp BP BP Pulse Ox 01/20/25 11:55 37.1 C 68 20 187/72 H 99 01/20/25 08:27 71 189/72 H 01/20/25 07:43 36.8 C 76 16 197/75 H 97 01/20/25 03:38 36.6 C 68 18 166/83 H 96 O2 Del Method 01/20/25 11:55 Room Air 01/20/25 08:27 01/20/25 07:43 Room Air 01/20/25 03:38 Room Air PG Care Time/CCT Total # of Minutes Spent Total Time Spent with Patient: Total time spent is greater than 50% in coordination of care (as documented) at patient's floor/unit and/or counseling patient: 36 minutes Coding Level of Care Code 85775 SUB INP/OBS CARE 2/35MIN Diagnoses Hypertensive urgency I16.0 Chest pressure R07.89
--- NOTE | 2025-01-20 13:30 | Electrocardiogram Report ---
Test Reason : Blood Pressure : */* mmHG Vent. Rate : 72 BPM Atrial Rate : 72 BPM P-R Int : 172 ms QRS Dur : 86 ms QT Int : 414 ms P-R-T Axes : 58 18 33 degrees QTcB Int : 453 ms Normal sinus rhythm Normal ECG When compared with ECG of 19-Oct-2024 15:23, No significant change was found Confirmed by Stephen Ruiz ([id number]) on 01/20/2025 1:29:58 PM Referred By: REFERRED SELF Confirmed By: Stpehen Ruiz
[2025-01-20] MEDS: LABETALOL HCL 100 MG TAB PO SCH (21:10)
[2025-01-20] MEDS: GABAPENTIN 100 MG CAP PO SCH (21:11)
--- NOTE | 2025-01-20 23:29 | Ultrasound Report ---
Exam(s): US DOPPLER RENAL ARTERY EXAM: US Duplex Arterial/Venous of the Kidneys, Complete CLINICAL HISTORY: hypertensive urgency. TECHNIQUE: Real-time duplex ultrasound scan of the kidneys integrating B-mode two- dimensional vascular structure, Doppler spectral analysis and color flow Doppler imaging. COMPARISON: CT abdomen and pelvis with contrast 03/11/2024 FINDINGS: Aorta: Proximal aorta demonstrates a peak systolic velocity of 67 cm/sec. Right renal arteries: The right renal artery and demonstrates peak systolic velocities of 189 cm/sec proximally, the mid segment is 107 cm/sec in the distal renal artery demonstrates a peak systolic velocity of 51 cm/sec. Normal waveform. Left renal arteries: The proximal left renal artery is not identified. The mid renal artery demonstrates a peak systolic velocity of 51 cm/sec. The distal renal artery demonstrates a peak systolic velocity of 69 cm/sec. Renal veins: The right renal vein is patent. The left renal vein is patent. Right kidney: The right kidney measures 8.5 x 3.8 x 3.6 cm. No hydronephrosis. Left kidney: The left kidney measures 9.9 x 4.3 x 4.6 cm. Inter segmental branches of the left kidney demonstrate peak systolic velocities between 24 and 33 cm/sec. The resistive indices are between 0. 73 and 0.75. No hydronephrosis. Other findings: The intra segmental branches demonstrate peak systolic velocities between 14 cm/sec and 20 cm/sec with resistive indices between 0.65 and 0.78. Right RAR is 2.8. The left RAR is 0.76. IMPRESSION: 1. The RAR of the right renal artery is 2.8, 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 2. The proximal left renal artery is not identified. The visualized segments are unremarkable. 3. No hydronephrosis. Electronically signed by: Billy Joseph MD 01/20/25 23:28 PM
[2025-01-21] MEDS: MECLIZINE HCL 25 MG TAB PO PRN (09:05)
[2025-01-21 11:26] VITALS: RESP 20; TEMP 98.4; O2SAT 99
--- NOTE | 2025-01-21 12:34 | Discharge Summary ---
Discharge Summary Date of Service January 21, 2025 Principal Dx & Hospital Course #1 = Principal Diagnosis (1) Hypertensive urgency: (2) Chest pressure: Plan 79-year-old female PMHx HTN, GERD, vertigo, vitamin B12 deficiency, tremor, DVT on Eliquis, and lumbar radiculopathy presenting for elevated BP readings into the 190 systolic. ED evaluation reveals CBC leukopenia 4.26, H&H 11.4/35.9; CMP grossly normal; trop 4.3, pending repeat; UA negative for infection; CXR no acute findings; EKG pending.; Provided with labetalol 10 mg IV x 2 in ED. #Hypertensive urgency/Uncontrolled HTN/Chest pressure Persistently elevated BP readings, first noted at dental appointment day of arrival with readings being 193/88 and 197/84. Symptoms and some chest pressure/discomfort, which sound consistent with her normal reflux disease. Patient received 2 doses of labetalol 10 mg IV in ED, pressures still remain in the systolics > 200. History of hyperkalemia with HCTZ, state that 40mg of lisinopril makes her tremulous. Amlodipine on allergy list. Of note, does not feel that the patient has enough education regarding GERD and feels that this is why her symptoms are exacerbated at times. Has had increased stress at home. - CBC leukopenia, H&H 11.4/34.9, troponin 4.3, repeat 5.2, acs ruled out - EKG normal sinus no ischemic changes - CXR without acute findings - Plasma, urine metanephrines pending -- if abnormal, follow up outpatient for further workup pheo - Suspect that her chest discomfort is reflux compared to ACS -- continue pantoprazole and famotidine - lisinopril 20 mg increased dose (40mg) made her "tremulous" on hold, will defer to PCP to restart - Admitting provider attempted propranolol increase from 60mg daily to BID for total 120mg - Hydralazine ordered as 5mg IV now then 10mg IV prn q8hr if SBP > 200 - Melatonin to help with sleep - renal duplex scan to r/o CRYSTAL: RAR of the right renal artery is 2.8, 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 Likely not causing these BPs. - start hydralazine 25mg TID start labetalol 100mg BID, will discharge as BP is better. Will recommend close discussion with PCP to tailor BP meds. #H/o DVT- Eliiquis - continue #GERD- Famotidine, pantoprazole - continue #Pain- Gabapentin, hydro-acet; PDMP independently reviewed by me at time of admission - continued gabapentin only Admission HPI Per Admitting Provider 79-year-old female PMHx HTN, GERD, vertigo, vitamin B12 deficiency, tremor, DVT on Eliquis, and lumbar radiculopathy presenting for elevated BP readings into the 190 systolic. She was at her dentist appointment when her blood pressure was taken and found to be in the 190s. She was having some mild chest pressure during this episode. Patient states that she does not check her blood pressures at home, normally does not have any symptoms. The only reason she knew that her pressure was up today was because when she was at the dentist, they had checked her BP prior to any interventions. The initial reading was 193/88, and repeat was 197/84. She states that they were going to proceed with the procedure, but because she was having chest heaviness and it felt "different" than before, she was encouraged to be seen by ED. She states that she took her a.m. medications. She does report that she "hates going to the dentist" and sometimes her pressures tend to be up when she is there. She describes the chest discomfort as a heaviness that is in her central chest and radiates to the right and left. It is not constant, but it will have occasional sharp and stabbing pains through the left side which she says last for a few seconds to minutes and resolves completely then. It does not cause her any SOB or palpitations. She does not get dizzy with this. She does report having increased indigestion throughout the past week, as well as coughing at night when laying flat. She is unsure if she is taking all of her acid reflux medications, she believes that she stopped 1 but does not remember which one. She states that whenever she rubs her chest this does sometimes help with the symptoms, but does not resolve them completely. At present, she is having mild chest pressure under her left breast, reproducible whenever she is palpating it herself. She has not been sick otherwise. Of note, patient states that 2 weeks ago she was accidentally taking lisinopril 40mg daily instead of 20- usband notes that when this was occurring, she was having "trembling episodes" following taking the medication. She has since been on lisinopril 20mg daily and is no longer having these episodes. Denies palpitations, SOB, abdominal pain, N/V/D/C, numbness/tingling, fever/chills, URI symptoms, LUTS, weakness, syncope, or LOC. She is due for her nighttime medications. ED evaluation reveals CBC leukopenia 4.26, H&H 11.4/35.9; CMP grossly normal; trop 4.3, pending repeat; UA negative for infection; CXR no acute findings; EKG NSR @ 63 bpm.; Provided with labetalol 10 mg IV x [address] see Dr[address] Lu's attestation for adjustments/additions to treatment plan. Discharge Exam Constitutional WD/WN, vitals as above Respiratory normal respiratory effort Psychiatric A+Ox3, euthymic affect Discharge Plan Discharge Items Patient Disposition: Home - Self-Care Reason For Visit: HTN, CHEST PRESSURE Discharge Diagnosis: chest pressure Condition on Discharge: Fair Activity: Resume your previous activity Non-emergency contact: Primary Care Provider Call non-emergency contact if: you have any medication questions Follow-up/Referrals: Pro,Braulio Meza MD [Primary Care Provider] - Diet: Heart Healthy Addtl Attending Provider Instructions: Recommend close followup with PCP in 1-2 weeks to discuss blood pressure meds. Pending Studies at Discharge: No Stand-Alone Forms: My [employer], Smoking Cessation Medications and DC Order Prescriptions: New hydralazine 25 mg Tablet 25 mg PO TID Qty: 90 0RF labetalol 100 mg Tablet 100 mg PO BID Qty: 60 0RF Continued albuterol sulfate 90 mcg/actuation HFA aerosol inhaler 2 puff inhalation Q6H PRN (Reason: shortness of breath or wheezing) Qty: 6.7 0RF Eliquis 5 mg tablet 5 mg PO BID Qty: 180 1RF mecobalamin (vitamin B12) 500 mcg tablet,chewable 500 mcg PO DAILY Patient Comments: 01/22-not taking at this time ipratropium bromide 21 mcg (0.03 %) spray,non-aerosol 2 spray intranasal BID PRN (Reason: Allergy Symptoms) Rx Instructions: administer into each nostril gabapentin 100 mg capsule 200 mg PO HS Qty: 60 6RF loratadine [Claritin] 10 mg Tablet 10 mg PO DAILY PRN (Reason: allergies) lidocaine [Lidocaine Pain Relief] 4 % Adhesive Patch,Medicated 1 patch TOPICAL DAILY PRN (Reason: Pain) Patient Comments: pt doesnt have 1 on currently. cholecalciferol (vitamin D3) [Vitamin D3] 25 mcg (1,000 unit) capsule 25 mcg PO QDL Patient Comments: 01/22-Not taking at this time famotidine 20 mg tablet 20 mg PO BID Patient Comments: 01/22-not taking at time Rx Instructions: Unable to verify OTC meds. hydrocodone-acetaminophen 5-325 mg tablet 1 tab PO TID PRN (Reason: Pain) pantoprazole 40 mg tablet,delayed release (DR/EC) 40 mg PO QAM meclizine 25 mg Tablet 25 mg PO TID PRN (Reason: Dizziness) Discontinued lisinopril 20 mg tablet 20 mg PO QAM Qty: 30 3RF propranolol 60 mg capsule,extended release 24 hr 60 mg PO DAILY Qty: 90 3RF No Action Multiple Vitamin-Minerals Tablet 1 tab PO DAILY Patient Comments: 01/22-Not taking at this time vitamin B complex Tablet 1 tab PO DAILY Patient Comments: 01/22-Not taking at this time Discharge Orders: Discharge Order (Routine); Ordered 01/21/25 Ordered By: Mark Cai Admission Data Admit Date/Time: 01/19/25 21:20 Attending Provider: Mark Cai Admit Provider: Robbie Lu Primary Care Provider: Braulio Kaur Other Providers: Robbie Lu Other Interventions: Discharge Summary Assessment (RN) Last Done: 01/21/25 13:19 Hospital Stay Data Consultations 01/19/25 20:55 ED Decision to Admit Stat Diagnostic Imagining Performed 01/20/25 12:55 US duplex renal art/vein BI Routine Pending Results Patient Have Any Pending Studies at Discharge: No Discharge Instructions Given to Patient (Per Discharging Provider) Recommend close followup with PCP in 1-2 weeks to discuss blood pressure meds. Total Time Total Time Spent Total Time Spent (In Minutes): 32 Coding Level of Care Code 48895 INP/OBS DISCH >30 MIN Diagnoses Hypertensive urgency I16.0 Chest pressure R07.89
[2025-01-21 13:21] VITALS: BP 189/72
[2025-01-21 14:15] VITALS: PULSE 76
--- NOTE | 2025-01-21 14:29 | Electrocardiogram Report ---
Test Reason : Blood Pressure : */* mmHG Vent. Rate : 63 BPM Atrial Rate : 63 BPM P-R Int : 174 ms QRS Dur : 82 ms QT Int : 408 ms P-R-T Axes : 53 21 41 degrees QTcB Int : 417 ms Normal sinus rhythm Normal ECG When compared with ECG of 19-Oct-2024 15:23, No significant change was found Confirmed by Stephen Ruiz ([id number]) on 01/21/2025 2:29:23 PM Referred By: REFERRED SELF Confirmed By: Stephen Ruiz
[2025-01-24 17:37] LABS: Metanephrine, Plasma 29 pg/mL (<=57); Normetanephrine Plasma 103 pg/mL (<=148); Total Metanephrine Plasma 132 pg/mL (<=205)
== END 2025-01-21 14:25 | disposition home or self-care (01) ==
LOC: 2S 17:42 → ED 17:42 → SUATTDRO 21:20 → 2S 22:20